=== PATIENT | female | born 1945 | race Caucasian/White ===

== ENCOUNTER → 2017-01-30 | Day surgery (SDC) | payer MEDICARE ==
[~2017-01-30] VITALS: Ht 154.9 cm; Wt 71.5 kg
[~2017-01-30] MED LIST: ACET1CAP18 PO; ALLO100T PO; BUME2TAB PO; CALC600T10 PO; CYCLOPENTOLATE HCL 1% OPHT SOLN 2 ML BTL ONE; FLURBIPROFEN 0.03% OPHT SOLN 2.5 ML BTL ONE; LIDOCAINE HCL 1% 30 ML VIAL ONE; LIDOCAINE HCL 2% JELLY 5 ML SYRINGE ONE; PHENYLEPHRINE HCL 10% OPTH SOLN 5 ML BTL ONE; PRED5TAB PO; PROPARACAINE HCL 0.5% OPHT SOLN 15 ML BTL ONE; SODIUM CHLORID 0.9% 500 ML INJ 500 ML ONE; TOBRAMYCIN/DEXAMETHASONE OPTH OINT 3.5 GM TUBE ONE; TROPICAMIDE 1% OPHT SOLN 15 ML BTL ONE
[2017-01-30 08:05] VITALS: BP 157/71; PULSE 73; RESP 16; TEMP 98.3; O2SAT 98
[2017-01-30 09:40] VITALS: TEMP 98.4
[2017-01-30 10:05] VITALS: BP 160/69; PULSE 75; RESP 14; O2SAT 98
--- NOTE | 2017-02-02 14:02 | MP ---
cc: ERWIN CAICEDO M.D. Corrected Copy: 02/07/17 DATE OF SURGERY: 01/30/2017 [facility] NUMBER: [id number]. PREOPERATIVE DIAGNOSIS: Visually significant cataract left eye. POSTOPERATIVE DIAGNOSIS: Visually significant cataract left eye. OPERATION: Phacoemulsification with posterior chamber lens implantation, left eye. SURGEON: Erwin Caicedo MD ANESTHESIA: Topical with MAC COMPLICATIONS: None DESCRIPTION OF THE PROCEDURE IN DETAIL: After informed consent was obtained, the patient was brought into the operative suite and placed on appropriate monitors by the Anesthesia Service. The patient had been given dilating drops and topical lidocaine gel in the holding area. The patient's operative eye was then prepped and draped in the usual sterile fashion. A wire lid speculum was placed. Further 2% lidocaine was then dropped on the cornea prior to beginning the procedure. A paracentesis incision was made in the peripheral cornea with a 1 mm loco keratome. The anterior chamber was filled with viscoelastic. The anterior chamber was then entered through a stepped, clear corneal incision using a sharp 3 mm loco keratome. A circular tear capsulorrhexis was then made with a bent needle cystitome. Following hydrodissection of the lens nucleus with balance saline, phacoemulsification of the nucleus was performed using a modified chopping technique. The remaining cortex was removed with irrigation/aspiration. The prior two procedures were both performed using the handpieces of the [employer] phaco unit. The capsular bag was then filled with viscoelastic. The intraocular lens was then injected into the capsular bag and positioned. The type of intraocular lens and its power can be found elsewhere in this chart. The remaining viscoelastic was then removed from the anterior chamber with the IA handpiece. The anterior chamber was reformed with balanced saline. The wound was then closed securely with stromal hydration. It was found to be watertight to an intraocular pressure of at least 30 mmHg by palpation. A small amount of balanced salt solution was then removed through the paracentesis site and the intraocular pressure at the end of the case was approximately 20 by palpation. All drapes were then removed. TobraDex ointment was then placed in the eye, which was closed beneath a semi-pressure patch dressing. The patient tolerated this procedure well and left the operating room awake and alert. The patient is to follow-up in my office in the morning. ADDENDUM: After the clear corneal incisions were sealed water-tight, a 4 mm limbal relaxing incision was made with a 600 micron loco blade, centered around the inferior 80 degree meridian. Erwin MD TATI Davila/MICHEL /9:40 AM /2:35 PM
== END | disposition home or self-care (01) ==
LOC: PHSDC 07:15
PROVIDERS: ATTEND Optometrist Occupational Vision
DX: H26.9 Unspecified cataract (principal)
CPT/HCPCS: 00142; 66984; J7040; V2632

== ENCOUNTER → 2017-03-13 | Day surgery (SDC) | payer MEDICARE ==
[~2017-03-13] VITALS: Ht 154.9 cm; Wt 68.0 kg
[~2017-03-13] MED LIST changes: -LIDOCAINE HCL 1% 30 ML VIAL ONE; +LIDOCAINE HCL 1% PF 30 ML VIAL INFIL ONE; -TOBRAMYCIN/DEXAMETHASONE OPTH OINT 3.5 GM TUBE ONE; +TOBRAMYCIN/DEXAMETHASONE OPTH OINT 3.5 GM TUBE RIGHT EYE ONE
[2017-03-13 06:33] VITALS: BP 140/63; PULSE 70; RESP 16; TEMP 98; O2SAT 96
[2017-03-13 08:17] VITALS: TEMP 97.4
[2017-03-13 08:30] VITALS: BP 151/64; PULSE 65; RESP 14; O2SAT 98
--- NOTE | 2017-03-13 10:48 | MP ---
cc: ERWIN CAICEDO M.D. [facility] #: [id number] DATE: March 13, 2017 PREOPERATIVE DIAGNOSIS: Visually significant cataract right eye. POSTOPERATIVE DIAGNOSIS: Visually significant cataract right eye. OPERATION: Phacoemulsification with posterior chamber lens implantation, right eye. SURGEON: Erwin Caicedo MD ANESTHESIA: Topical with MAC. COMPLICATIONS: None. PROCEDURE: After informed consent was obtained, the patient was brought into the operative suite and placed on appropriate monitors by the Anesthesia Service. The patient had been given dilating drops and topical lidocaine gel in the holding area. The patient's operative eye was then prepped and draped in the usual sterile fashion. A wire lid speculum was placed. Further 2% lidocaine was then dropped on the cornea prior to beginning the procedure. A paracentesis incision was made in the peripheral cornea with a 1 mm loco keratome. The anterior chamber was filled with viscoelastic. The anterior chamber was then entered through a stepped, clear corneal incision using a sharp 3 mm loco keratome. A circular tear capsulorrhexis was then made with a bent needle cystitome. Following hydrodissection of the lens nucleus with balance saline, phacoemulsification of the nucleus was performed using a modified chopping technique. The remaining cortex was removed with irrigation/aspiration. The prior two procedures were both performed using the handpieces of the [employer] phaco unit. The capsular bag was then filled with viscoelastic. The intraocular lens was then injected into the capsular bag and positioned. The type of intraocular lens and its power can be found elsewhere in this chart. The remaining viscoelastic was then removed from the anterior chamber with the IA handpiece. The anterior chamber was reformed with balanced saline. The wound was then closed securely with stromal hydration. It was found to be watertight to an intraocular pressure of at least 30 mmHg by palpation. A small amount of balanced salt solution was then removed through the paracentesis site and the intraocular pressure at the end of the case was approximately 20 by palpation. All drapes were then removed. TobraDex ointment was then placed in the eye, which was closed beneath a semi-pressure patch dressing. The patient tolerated this procedure well and left the operating room awake and alert. The patient is to follow-up in my office in the morning. ADDENDUM: After the clear corneal incisions were sealed water-tight, a 4-mm limbal relaxing incision was made with a 600 micron loco blade, centered around the 110-degree meridian. MD TATI Chery/EUGENE /10:30 AM /10:41 AM
== END | disposition home or self-care (01) ==
LOC: PHSDC 06:09
PROVIDERS: ATTEND Optometrist Occupational Vision
DX: H25.811 Combined forms of age-related cataract, right eye (principal); H43.813 Vitreous degeneration, bilateral; H35.363 Drusen (degenerative) of macula, bilateral; Z97.3 Presence of spectacles and contact lenses
CPT/HCPCS: 66984; J7040; V2632

== ENCOUNTER 2018-11-01 03:42 | Inpatient (IN) ==
--- NOTE | 2018-11-01 03:46 | ED ---
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 She apparently had gotten up to go to the bathroom according to the and she had syncopized. She does not remember the event. She denies any chest pains, trouble breathing, or other symptoms. EMS states that initially she did have some bradycardia. Currently, she is in atrial fibrillation. She is arousable now, but does not remember the event. She is currently complaining of left hip pain. Modifying Factors: None Associated Signs & Symptoms: Syncope, left hip pain Risk Factors: Elderly Related Data Home Medications Medication Instructions Recorded Confirmed Acthar H.P. 1 ml INJ Q72H 11/01/18 11/01/18 allopurinol 100 mg PO DAILY 11/01/18 11/01/18 cholecalciferol (vitamin D3) 5,000 unit PO DAILY 11/01/18 11/01/18 [Vitamin D3] famotidine 40 mg PO DAILY 11/01/18 11/01/18 metolazone 2.5 mg PO DAILY 11/01/18 11/01/18 nifedipine 30 mg PO DAILY 11/01/18 11/01/18 nifedipine 60 mg PO DAILY 11/01/18 11/01/18 potassium chloride 20 meq PO BID 11/01/18 11/01/18 prednisone 10 mg PO DAILY 11/01/18 11/01/18 sulfamethoxazole-trimethoprim 1 tab PO 3XW 11/01/18 11/01/18 torsemide 40 mg PO DAILY 11/01/18 11/01/18 Allergies Allergy/AdvReac Type Severity Reaction Status Date / Time No Known Allergies Allergy Verified 11/01/18 03:44 Review of Systems ROS Unobtainable ROS Unobtainable: unobtainable due to mental status PMFSH History History Provided By: Medical Record and Staff Cytotechnologist / EMT Medical History Medical History Medical history unknown (Acute) Surgical history unknown (Acute) Social History Social History Substance History: No History of Abuse Second Hand Smoke Exposure: No Smoking Status: Never smoker How Often Do You Have a Drink Containing Alcohol: Never Recent Travel in [facility] within the Last 8 Weeks: No Recent Out of Country Travel within the Last 8 Weeks: No Exam Narrative Exam Narrative: GENERAL: Well-developed elderly obese female patient currently in moderate distress. Arousable, disoriented. SKIN: Focused skin assessment warm/dry. HEAD: Atraumatic. Normocephalic. EYES: Pupils equal and round. No scleral icterus. No injection or drainage. ENT: No nasal bleeding or discharge. Mucous membranes pink and moist. NECK: Trachea midline. No JVD. CARDIOVASCULAR: Regular rate and rhythm. No murmur appreciated. RESPIRATORY: No accessory muscle use. Clear to auscultation. Breath sounds equal bilaterally. GASTROINTESTINAL: Abdomen soft, non-tender, nondistended. Hepatic and splenic margins not palpable. MUSCULOSKELETAL: No obvious deformities. No clubbing. No cyanosis. Anasarca with significant intense pitting edema both legs. NEUROLOGICAL: Awake and alert. No obvious cranial nerve deficits. Motor grossly within normal limits. Normal speech. PSYCHIATRIC: Appropriate mood and affect; insight and judgment normal. Course Initial Documented Vital Signs Pulse Rate 119 H 11/01/18 03:44 Respiratory Rate 21 11/01/18 03:44 Blood Pressure 163/71 H 11/01/18 03:44 Pulse Oximetry 95 11/01/18 03:44 Last Documented Vital Signs Pulse Rate 119 H 11/01/18 03:44 Respiratory Rate 21 11/01/18 03:44 Blood Pressure 163/71 H 11/01/18 03:44 Pulse Oximetry 95 11/01/18 03:52 Medical Decision Making MDM Narrative Medical decision making narrative: Lab work is showing significant anemia. 2 units of PRBCs were ordered for the patient. Her chest x-ray is clear. She has all over anasarca likely secondary to the low albumin levels which appears to be chronic for this patient with history of minimal-change disease. She has a fairly elevated BUN and creatinine. Her potassium is low and IV replacement was ordered for the patient. A Hemoccult was done on patient's stool and it is negative. At this point, my plan would be to admit her for further treatment. Case is discussed with Dr. Rosenberg for admission to hospitalist service. In addition, patient's x-ray of the hip shows a hip fracture. The case was discussed with Dr. Momin B who states that the patient likely will need surgical treatment after stabilization. Medical Screen Exam Complete: Yes Emergency Medical Condition: Yes Differential Diagnosis Differential Diagnosis: Dysrhythmias versus electrolyte abnormalities versus orthostasis Lab Data Lab results reviewed: Yes I reviewed the patient's lab results. Result diagrams: 11/01/18 03:49 11/01/18 03:49 Lab Results 11/01/18 11/01/18 11/01/18 Range/Units 03:49 03:49 03:49 WBC 1.3 L (4.0-11.0) th/mm3 RBC 2.24 L (4.00-5.30) mil/mm3 Hgb 6.8 L* (11.6-15.3) gm/dL Hct 20.4 L* (35.0-46.0) % MCV 91.0 (80.0-100.0) fL MCH 30.3 (27.0-34.0) pg MCHC 33.3 (32.0-36.0) % RDW 19.7 H (11.6-17.2) % Plt Count 204 (150-450) th/mm3 MPV 8.7 (7.0-11.0) fL Prelim Diff (Auto) Slide review pending Neut % (Auto) 89.1 H (16.0-70.0) % Lymph % (Auto) 8.1 L (9.0-44.0) % [place] % (Auto) 1.7 (0.0-8.0) % Eos % (Auto) 0.5 (0.0-4.0) % Baso % (Auto) 0.6 (0.0-2.0) % Neut # (Auto) 1.1 L (1.8-7.7) th/mm3 Lymph # (Auto) 0.1 L (1.0-4.8) th/mm3 [place] # (Auto) 0.0 (0.0-0.9) th/mm3 Eos # (Auto) 0.0 (0.0-0.4) th/mm3 Baso # (Auto) 0.0 (0.0-0.2) th/mm3 WBC Differential Manual diff final Seg Neuts % (Manual) 9 L (16-70) % Band Neuts % (Manual) 34 H (0-6) % Lymphocytes % (Manual) 13 (9-44) % Monocytes % (Manual) 5 (0-8) % Eosinophils % (Manual) 2 (0-4) % Metamyelocytes % (Man) 30 H (0-1) % Myelocytes % (Man) 7 H (0-0) % Abs Neuts (Manual) 1.0 L (1.8-7.7) th/mm3 Nucleated RBCs/100 WBC 18 H (0-0) /100 WBC Differential Comment . Platelet Estimate Normal (Normal) Platelet Morphology Normal (Normal) Acanthocytes (Spur) Occ H (None) PT 10.5 (9.8-11.6) sec INR 1.0 Ratio APTT 25.8 (23.4-31.7) sec Sodium 142 (136-145) meq/L Potassium 2.3 L* (3.5-5.1) meq/L Chloride 104 (98-107) meq/L Carbon Dioxide 24.2 (21.0-32.0) meq/L Anion Gap 14 (5-15) meq/L BUN 75 H (7-18) mg/dL Creatinine 2.76 H (0.50-1.00) mg/dL Estimated GFR 17 L (>89) mL/min Random Glucose 133 H (74-106) mg/dL Calcium 7.1 L* (8.5-10.1) mg/dL Calcium Adj for Albumin 9.2 (8.5-10.1) mg/dL Total Bilirubin 0.2 (0.2-1.0) mg/dL AST 64 H (15-37) U/L ALT 80 H (10-53) U/L Alkaline Phosphatase 446 H (45-117) U/L Troponin I 0.10 H (0.02-0.05) ng/mL B-Natriuretic Peptide (0-100) pg/mL Total Protein 4.3 L (6.4-8.2) g/dL Albumin 1.4 L (3.4-5.0) g/dL Blood Type Blood Type Recheck MTS Gel Crossmatch 11/01/18 11/01/18 Range/Units 03:49 04:56 WBC (4.0-11.0) th/mm3 RBC (4.00-5.30) mil/mm3 Hgb (11.6-15.3) gm/dL Hct (35.0-46.0) % MCV (80.0-100.0) fL MCH (27.0-34.0) pg MCHC (32.0-36.0) % RDW (11.6-17.2) % Plt Count (150-450) th/mm3 MPV (7.0-11.0) fL Prelim Diff (Auto) Neut % (Auto) (16.0-70.0) % Lymph % (Auto) (9.0-44.0) % [place] % (Auto) (0.0-8.0) % Eos % (Auto) (0.0-4.0) % Baso % (Auto) (0.0-2.0) % Neut # (Auto) (1.8-7.7) th/mm3 Lymph # (Auto) (1.0-4.8) th/mm3 [place] # (Auto) (0.0-0.9) th/mm3 Eos # (Auto) (0.0-0.4) th/mm3 Baso # (Auto) (0.0-0.2) th/mm3 WBC Differential Seg Neuts % (Manual) (16-70) % Band Neuts % (Manual) (0-6) % Lymphocytes % (Manual) (9-44) % Monocytes % (Manual) (0-8) % Eosinophils % (Manual) (0-4) % Metamyelocytes % (Man) (0-1) % Myelocytes % (Man) (0-0) % Abs Neuts (Manual) (1.8-7.7) th/mm3 Nucleated RBCs/100 WBC (0-0) /100 WBC Differential Comment Platelet Estimate (Normal) Platelet Morphology (Normal) Acanthocytes (Spur) (None) PT (9.8-11.6) sec INR Ratio APTT (23.4-31.7) sec Sodium (136-145) meq/L Potassium (3.5-5.1) meq/L Chloride (98-107) meq/L Carbon Dioxide (21.0-32.0) meq/L Anion Gap (5-15) meq/L BUN (7-18) mg/dL Creatinine (0.50-1.00) mg/dL Estimated GFR (>89) mL/min Random Glucose (74-106) mg/dL Calcium (8.5-10.1) mg/dL Calcium Adj for Albumin (8.5-10.1) mg/dL Total Bilirubin (0.2-1.0) mg/dL AST (15-37) U/L ALT (10-53) U/L Alkaline Phosphatase (45-117) U/L Troponin I (0.02-0.05) ng/mL B-Natriuretic Peptide 710 H (0-100) pg/mL Total Protein (6.4-8.2) g/dL Albumin (3.4-5.0) g/dL Blood Type O Positive Blood Type Recheck Required MTS Gel Crossmatch See Detail Imaging Data Attestation: I personally reviewed and interpreted this imaging study as follows : Radiologist's impression: Chest X-Ray 11/01/18 03:44 CONCLUSION: No obvious infiltrate or mass. No visible pneumothorax or displaced rib fracture Hip X-Ray 11/01/18 03:49 CONCLUSION: On the single view the pelvis and concerned about the inferior femoral neck for slightly impacted fracture. There are 2 views are entirely normal ECG Data Attestation: I personally reviewed and interpreted this ECG as follows: Interpretation: EKG shows atrial fibrillation with rapid ventricular response at a rate of 100 bpm. Discharge Plan Discharge Disposition Patient Disposition: ED Admit(ED Internal Use Only) Discharge Condition Condition: Fair Discharge Order Discharge Orders: ED Use Only Admit Order (Routine); Ordered 11/01/18 Ordered By: Colton Jaffe Discharge Details Anticipated Discharge Date: 11/01/18 Diagnosis: Severe anemia, Syncope, Hypokalemia Physicians Team ED Provider: Colton Jaffe Primary Care Provider: Khanh Wallace Attending Provider: Jv Euceda Discharge Interventions Interventions: Vital Signs Last Done: 11/01/18 03:44 Status ED Status: Admitted Patient
[2018-11-01 04:23] LABS: Baso % (Auto) 0.6 % (0.0-2.0); Eos % (Auto) 0.5 % (0.0-4.0); Lymph # (Auto) 0.1 th/mm3 (1.0-4.8); Lymph % (Auto) 8.1 % (9.0-44.0); Mean Corpuscular HGB Conc 33.3 % (32.0-36.0); Mean Corpuscular Hemoglobin 30.3 pg (27.0-34.0); Mean Platelet Volume 8.7 fL (7.0-11.0); Mono % (Auto) 1.7 % (0.0-8.0); Neut # (Auto) 1.1 th/mm3 (1.8-7.7); Neut % (Auto) 89.1 % (16.0-70.0); Platelet Count 204 th/mm3 (150-450); Red Blood Count 2.24 mil/mm3 (4.00-5.30); Red Cell Distribution Width 19.7 % (11.6-17.2); White Blood Count 1.3 th/mm3 (4.0-11.0)
[2018-11-01 04:25] LABS: Hematocrit 20.4 % (35.0-46.0); Hemoglobin 6.8 gm/dL (11.6-15.3)
[2018-11-01 04:33] LABS: Activated Partial Thrombo Time 25.8 sec (23.4-31.7); Prothrombin Time 10.5 sec (9.8-11.6)
[2018-11-01 04:44] LABS: Albumin 1.4 g/dL (3.4-5.0); Calcium 7.1 mg/dL (8.5-10.1); Carbon Dioxide 24.2 meq/L (21.0-32.0); Total Protein 4.3 g/dL (6.4-8.2); Troponin I 0.1 ng/mL (0.02-0.05)
[2018-11-01] MEDS ORDERED: Sodium Chlor 0.9% Inj 250 ML IV.SIG SCH ×2 (05:00→10:00)
[2018-11-01 05:03] LABS: Potassium 2.3 meq/L (3.5-5.1)
[2018-11-01 05:06] LABS: Acanthocytes Occ; Eosinophils 2 % (0-4); Lymphocytes 13 % (9-44); Metamyelocytes 30 % (0-1); Monocytes 5 % (0-8); Myelocytes 7 % (0-0); Platelet Estimate Normal (Normal); Platelet Morphology Normal (Normal); Tallied Nucleated RBC 18 (0-0)
--- NOTE | 2018-11-01 05:06 | XR ---
EXAM DATE: 11/01/2018 4:51 AM EST AGE/SEX: 73 years / Female INDICATIONS: Fall. Weakness. CLINICAL DATA: This is the patient's subsequent encounter. Patient reports that signs and symptoms h ave been present for 1 day and indicates a pain score of 5/10. MEDICAL/SURGICAL HISTORY: None. None. COMPARISON: . FINDINGS: A single AP view of the chest demonstrates the lungs to be symmetrically aerated without evidence of mass, infiltrate or effusion. The cardiomediastinal contours are unremarkable. Osseous structures a re intact. Calcification mid chest I suspect a calcified lymph node. CONCLUSION: No obvious infiltrate or mass. No visible pneumothorax or displaced rib fracture Electronically signed by: Joel Teague MD Board Certified Radiologist 11/01/2018 5:04 AM EST
--- NOTE | 2018-11-01 05:18 | XR ---
EXAM DATE: 11/01/2018 4:51 AM EST AGE/SEX: 73 years / Female INDICATIONS: Fall. Left hip pain. CLINICAL DATA: This is the patient's initial encounter. Patient reports that signs and symptoms have been present for 1 day and indicates a pain score of 10/10. MEDICAL/SURGICAL HISTORY: None. None. COMPARISON: No prior exams available for comparison. FINDINGS: On the single view the pelvis on the slightly concerned about the femoral neck particularly the infer ior cortex. On the other 2 views is unremarkable. If there is persistent pain noncontrast CT scan is recommended. CONCLUSION: On the single view the pelvis and concerned about the inferior femoral neck for slightly impacted fra cture. There are 2 views are entirely normal Electronically signed by: Joel Teague MD Board Certified Radiologist 11/01/2018 5:17 AM EST
[2018-11-01] MEDS ORDERED: Potassium Chloride Inj 10 MEQ in Sod Chloride 0.9% Inj 1,000 ML IV.CONT ONE (05:20)
[2018-11-01] MEDS ORDERED: Potassium Chlor 20 mEq Premix 20 MEQ/100 ML PIGGYBACK IV.SIG ONE ×2 (05:37→05:40)
[2018-11-01] MEDS ORDERED: Morphine Sulfate Inj 2 MG/ML Vial IV.PUSH PRN (05:44)
--- NOTE | 2018-11-01 05:51 | CT ---
EXAM DATE: 11/01/2018 5:46 AM EST AGE/SEX: 73 years / Female INDICATIONS: Syncope CLINICAL DATA: This is the patient's initial encounter. Patient reports that signs and symptoms have been present for 1 day and indicates a pain score of 0/10. MEDICAL/SURGICAL HISTORY: Hypertension. None. RADIATION DOSE: 56.34 CTDI (mGy) COMPARISON: No prior exams available for comparison. TECHNIQUE: CT of the head without contrast. Using automated exposure control and adjustment of the mA and/or kV according to patient size, radiation dose was kept as low as reasonably achievable to ob tain optimal diagnostic quality images. DICOM format image data is available electronically for revi ew and comparison. FINDINGS: Cerebrum: The ventricles are normal for age. No evidence of midline shift, mass lesion, hemorrhage or acute infarction. No extraaxial fluid collections are seen. Posterior Fossa: The cerebellum and brainstem are intact. The 4th ventricle is midline. The cerebe llopontine angle is unremarkable. Extracranial: The visualized portion of the orbits is intact. Skull: The calvaria is intact. No evidence of skull fracture. CONCLUSION: 1. Negative CT Head non contrast. . Electronically signed by: Joel Teague MD Board Certified Radiologist 11/01/2018 5:50 AM EST
[2018-11-01 06:11] LABS: Magnesium 1.8 mg/dL (1.5-2.5)
[2018-11-01 06:20] LABS: Thyroid Stimulating Hormone 1.88 uIU/mL (0.358-3.740)
--- NOTE | 2018-11-01 08:21 | P.CONOP ---
[facility] Orthopedics Consult Note - [facility] Consult date: 11/01/18 Consult reason: fracture Chief complaint: syncope, anasarca, severe anemia, hypokalemia Narrative: 73-year-old female patient with minimal change disease, hypertension, anasarca, presents to the ER today brought in by EMS after she had a syncopal episode. She apparently had gotten up to go to the bathroom according to the and she had syncopized. She does not remember the event. Patient's states she did not actually fall but started to buckle her knees. He states over the last week she has had increasing difficulty ambulating without any reported or witnessed falls. She has previously been on hemodialysis earlier this year and is currently being treated for minimal-change disease in [place]. She denies any chest pains, trouble breathing, or other symptoms. EMS states that initially she did have some bradycardia. Currently, she is in atrial fibrillation. She is arousable now, but does not remember the event. She is currently complaining of left hip pain. Review of Systems Denies fevers, chills, nausea, vomiting. Denies chest pain, cough, shortness of breath. Denies abdominal pain or change in urination. Denies back pain, weakness, numbness or tingling. Denies dizziness, blurry vision or throat pain. Reports left hip pain. Reports generalized edema PMFSH - History History Provided By: Medical Record, Claims Attorney / EMT - Medical History Medical History: Medical History (Last Updated 11/01/18 @ 03:48 by Lillian Jackson RN) Medical history unknown Surgical history unknown - Tobacco History Second Hand Smoke Exposure: No Smoking Status: Never smoker - Alcohol History How Often Do You Have a Drink Containing Alcohol: Never - Substance Use History Substance History: No History of Abuse - Travel History Recent Travel in the [place] Within the Last 8 Weeks: No Recent Travel Out of the Country Within the Last 8 Weeks: No - Immunization History Tetanus Immunization: Unsure Medications and Allergies Active Medications: Active Medications Morphine Sulfate (Morphine Inj) 3 mg IV.PUSH Q3H PRN PRN Reason: pain level 3-10 Last Admin: 11/01/18 06:40 Dose: 3 mg Ondansetron HCl (Zofran Inj) 4 mg IV.PUSH Q6H PRN PRN Reason: nausea, vomiting Allergies Allergy/AdvReac Type Severity Reaction Status Date / Time No Known Allergies Allergy Verified 11/01/18 03:44 Home Medications Medication Instructions Recorded Confirmed Type Acthar H.P. 1 ml INJ Q72H 11/01/18 11/01/18 History allopurinol 100 mg PO DAILY 11/01/18 11/01/18 History cholecalciferol (vitamin D3) 5,000 unit PO DAILY 11/01/18 11/01/18 History [Vitamin D3] famotidine 40 mg PO DAILY 11/01/18 11/01/18 History metolazone 2.5 mg PO DAILY 11/01/18 11/01/18 History nifedipine 30 mg PO DAILY 11/01/18 11/01/18 History nifedipine 60 mg PO DAILY 11/01/18 11/01/18 History potassium chloride 20 meq PO BID 11/01/18 11/01/18 History prednisone 10 mg PO DAILY 11/01/18 11/01/18 History sulfamethoxazole-trimethoprim 1 tab PO 3XW 11/01/18 11/01/18 History torsemide 40 mg PO DAILY 11/01/18 11/01/18 History Exam Vital signs: Vital Signs 11/01/18 03:44 11/01/18 03:52 11/01/18 06:20 Temperature 97.8 F Pulse Rate 119 H 96 H Respiratory Rate 21 18 Blood Pressure 163/71 H 119/56 L Pulse Oximetry 95 95 100 11/01/18 06:42 11/01/18 07:19 11/01/18 07:24 Temperature 98.5 F 98.0 F Pulse Rate 99 H 101 H 100 H Respiratory Rate 15 20 Blood Pressure 107/53 L 126/60 Pulse Oximetry 100 98 97 Intake & Output 10/31/18 11/01/18 11/01/18 18:59 06:59 18:59 Intake Total 0 / 0 590 / 590 Balance 0 / 0 590 / 590 Weight 95.254 kg Intake: IV 190 / 190 KCl 20 mEq Premix Inj 20 meq In 100 / 100 100 ml @ 50 mls/hr IV.SIG ONCE ONE Rx#:[id number] NS Inj 250 ML @ 15 mls/hr IV. 90 / 90 SIG ONCE JACOB Rx#:[id number] Intake (Blood Product) Amt 0 / 0 400 / 400 Rbc As-3 Leukoreduced Unit 0 / 0 400 / 400 [id number] Rbc As-3 Leukoreduced Unit 0 / 0 [id number] Narrative: Awake, alert, mild distress. Significant anasarca Normocephalic Pupils equal No JVD Moist mucous membranes Nonlabored respirations Soft nontender abdomen Irregular rate Right upper extremity: No tenderness to palpation or visible deformities. Full active range of motion and strength throughout. Sensation intact. Brisk cap refill. Left upper extremity:No tenderness to palpation or visible deformities. Full active range of motion and strength throughout. Sensation intact. Brisk cap refill. Right lower extremity: No tenderness to palpation or visible deformities. Full active range of motion and strength throughout. Sensation intact. Brisk cap refill. Left lower extremity: Positive logroll. Unable to assess hip and knee range of motion due to pain. Patient appears grossly intact distally although has significant edema especially left leg greater than right. There is mild erythema over the medial aspect of her right knee. Brisk cap refill. No rash Normal affect Results - Labs Result Diagrams: 11/01/18 03:49 11/01/18 03:49 Labs: Laboratory Results - last 24 hr 11/01/18 11/01/18 11/01/18 03:49 03:49 03:49 WBC 1.3 L RBC 2.24 L Hgb 6.8 L* Hct 20.4 L* MCV 91.0 MCH 30.3 MCHC 33.3 RDW 19.7 H Plt Count 204 MPV 8.7 Prelim Diff (Auto) Slide review pending Neut % (Auto) 89.1 H Lymph % (Auto) 8.1 L Warren % (Auto) 1.7 Eos % (Auto) 0.5 Baso % (Auto) 0.6 Neut # (Auto) 1.1 L Lymph # (Auto) 0.1 L Warren # (Auto) 0.0 Eos # (Auto) 0.0 Baso # (Auto) 0.0 WBC Differential Manual diff final Seg Neuts % (Manual) 9 L Band Neuts % (Manual) 34 H Lymphocytes % (Manual) 13 Monocytes % (Manual) 5 Eosinophils % (Manual) 2 Metamyelocytes % (Man) 30 H Myelocytes % (Man) 7 H Abs Neuts (Manual) 1.0 L Nucleated RBCs/100 WBC 18 H Differential Comment . Platelet Estimate Normal Platelet Morphology Normal Acanthocytes (Spur) Occ H PT 10.5 INR 1.0 APTT 25.8 Sodium 142 Potassium 2.3 L* Chloride 104 Carbon Dioxide 24.2 Anion Gap 14 BUN 75 H Creatinine 2.76 H Estimated GFR 17 L Random Glucose 133 H Calcium 7.1 L* Calcium Adj for Albumin 9.2 Magnesium Total Bilirubin 0.2 AST 64 H ALT 80 H Alkaline Phosphatase 446 H Troponin I 0.10 H B-Natriuretic Peptide Total Protein 4.3 L Albumin 1.4 L TSH Blood Type Blood Type Recheck Antibody Screen MTS Gel Crossmatch 11/01/18 11/01/18 11/01/18 03:49 03:49 04:56 WBC RBC Hgb Hct MCV MCH MCHC RDW Plt Count MPV Prelim Diff (Auto) Neut % (Auto) Lymph % (Auto) Warren % (Auto) Eos % (Auto) Baso % (Auto) Neut # (Auto) Lymph # (Auto) Warren # (Auto) Eos # (Auto) Baso # (Auto) WBC Differential Seg Neuts % (Manual) Band Neuts % (Manual) Lymphocytes % (Manual) Monocytes % (Manual) Eosinophils % (Manual) Metamyelocytes % (Man) Myelocytes % (Man) Abs Neuts (Manual) Nucleated RBCs/100 WBC Differential Comment Platelet Estimate Platelet Morphology Acanthocytes (Spur) PT INR APTT Sodium Cancelled Potassium Cancelled Chloride Cancelled Carbon Dioxide Cancelled Anion Gap Cancelled BUN Cancelled Creatinine Cancelled Estimated GFR Cancelled Random Glucose Cancelled Calcium Cancelled Calcium Adj for Albumin Magnesium 1.8 Total Bilirubin AST ALT Alkaline Phosphatase Troponin I B-Natriuretic Peptide 710 H Total Protein Albumin TSH 1.880 Blood Type O Positive Blood Type Recheck Required Antibody Screen Negative MTS Gel Crossmatch See Detail - Diagnostic results Imaging: Impressions Chest X-Ray 11/01/18 03:44 CONCLUSION: No obvious infiltrate or mass. No visible pneumothorax or displaced rib fracture Head CT 11/01/18 03:44 CONCLUSION: 1. Negative CT Head non contrast. . Hip X-Ray 11/01/18 03:49 CONCLUSION: On the single view the pelvis and concerned about the inferior femoral neck for slightly impacted fracture. There are 2 views are entirely normal Assessment and Plan - Assessment and Plan 73-year-old female with multiple medical problems with syncopal episode and reported left hip pain Radiographs are suspicious for a subcapital femoral neck fracture which is minimally to nondisplaced. However, given her anasarca and her size, this is very difficult to fully determine on radiographs alone. In addition, patient denies any significant falls and has had slow progressive difficulty with left side ambulation for over a week. At this time, I would recommend a CT scan to better evaluate fracture pattern and also could there be a pathological lesion. I discussed with the patient and her that likely she would benefit from percutaneous fixation should she have a subcapital femoral neck fracture without any pathologic lesion. However, currently she is receiving blood transfusion for her significant anemia. In addition, she is in atrial fibrillation which she states she has never been diagnosed with. At this time, she will need medical clearance and possible cardiac clearance prior to surgical intervention. We will plan for CT scan of her left hip today. We will make her n.p.o. at midnight with possible surgery tomorrow.
[2018-11-01] MEDS ORDERED: HYDROmorphone PF Inj 0.5 MG/0.5 ML Syringe IV.PUSH PRN (09:13)
--- NOTE | 2018-11-01 09:49 | P.HPIM ---
Addendum entered and electronically signed by JESICA Reece 14:27: Hypokalemia patient received potassium 20 meq IV x 2 in ER also has potassium 20 meq in IV fluids Start potassium 20 meq PO daily recheck potassium now ordered Original Note: History of Present Illness Primary Care Physician: Khanh Wallace MD Chief Complaint: Syncope with hip pain History of Present Illness: This is a 73-year-old female patient with a past medical history which includes minimal change disease dx in 2014 with nephrotic syndrome, temporary HD spring, hypertension, anasarca, COPD and OA. Patient presents to the ER brought in by EMS after she had a syncopal episode. Patient has recently received [place] and is drowsy. Information gathered from prior charting and at bedside. She apparently had gotten up to go to the bathroom and she had syncopal episode. She does not remember the event. She denies any chest pains, trouble breathing, or other symptoms. EMS states that initially she did have some bradycardia. She is currently complaining of left hip pain. Hip X-Ray 11/01/18 On the single view the pelvis and concerned about the inferior femoral neck for slightly impacted fracture. HGB 6.8 there is no report of blood per rectum or black stools. Patient's does report patient appears more fatigued lately and patient has had a hard time walking for the past month. Patient denies chest pain, SOB, fevers, chills, N/V/D/C. Chest X-Ray 11/01/18 No obvious infiltrate or mass. No visible pneumothorax or displaced rib fracture Head CT 11/01/[address] Head non contrast. Hip X-Ray 11/01/18 On the single view the pelvis and concerned about the inferior femoral neck for slightly impacted fracture. There are 2 views are entirely normal Past Medical History COPD Tobacco use Osteoarthritis Genital herpes PFT on 06/05/15 with FEV1 82% Minimal change disease with nephrotic syndrome anasarca CKD stage 3 HTN Past Surgical History vaginal Hysterectomy with oophorectomy Cholecystectomy Abdominoplasty Breast reduction and implants cataract surgery Kidney Bx Family History Mother with a hx of HTN, diabetes mellitus, and breast cancer Father with a hx of emphysema Social History Hx of Tobacco use, 30+ years smokes 5-6 cigarettes per day. Rare social alcohol use. Denies illicit drug use Inpatient Certification Inpatient Certification: I certify that the inpatient services were ordered in accordance with Medicare regulations governing the order. This includes certification that hospital inpatient services are reasonable and necessary and in the case of services not specified as inpatient-only under 42 CFR 419.22(n), that they are appropriately provided as inpatient services in accordance to with the 2-midnight benchmark under 43 CFR 412.3(e) Estimated Total Length of Stay (Days): 3 Plans for Post Hospital Care: Not yet determined Medications and Allergies Allergies Allergy/AdvReac Type Severity Reaction Status Date / Time No Known Allergies Allergy Verified 11/01/18 03:44 Home Medications Medication Instructions Recorded Confirmed Type allopurinol 100 mg PO DAILY 11/01/18 11/01/18 History cholecalciferol (vitamin D3) 5,000 unit PO DAILY 11/01/18 11/01/18 History [Vitamin D3] corticotropin [Acthar H.P.] 80 unit IM Q72H 11/01/18 11/01/18 History famotidine 40 mg PO DAILY 11/01/18 11/01/18 History metolazone 2.5 mg PO DAILY 11/01/18 11/01/18 History nifedipine 30 mg PO DAILY 11/01/18 11/01/18 History nifedipine 60 mg PO QPM 11/01/18 11/01/18 History potassium chloride 20 meq PO BID 11/01/18 11/01/18 History prednisone 10 mg PO DAILY 11/01/18 11/01/18 History sulfamethoxazole-trimethoprim 1 tab PO 3XW 11/01/18 11/01/18 History torsemide 20 mg PO BID 11/01/18 11/01/18 History Active Medications: Active Medications Hydrocodone Bitart/Acetaminophen ([place] 7.5/325) 1 tab PO Q4H PRN PRN Reason: PAIN SCALE 1 TO 10 Last Admin: 11/01/18 09:26 Dose: 1 tab Hydromorphone HCl (Dilaudid Pf Inj) 0.5 mg IV.PUSH Q4H PRN PRN Reason: BREAKTHROUGH PAIN Ondansetron HCl (Zofran Inj) 4 mg IV.PUSH Q6H PRN PRN Reason: nausea, vomiting Physical Exam Vital signs: Last Vital Signs Temp 98.2 F 11/01/18 07:34 Pulse 97 H 11/01/18 07:56 Resp 20 11/01/18 07:56 BP 111/52 L 11/01/18 07:56 Pulse Ox 98 11/01/18 07:56 Narrative: GENERAL: This is a well-nourished, well-developed patient, currently appears drowsy post norco but in no apparent distress. CARDIOVASCULAR: irregular irregular RESPIRATORY: Clear to auscultation. Breath sounds equal bilaterally. GASTROINTESTINAL: Abdomen soft, non-tender, nondistended. Normal active bowel sounds MUSCULOSKELETAL: Extremities without clubbing, cyanosis, or edema. NEURO: drowsy able to awaken with voice and answers appropriately. Moves all ext x4. LLE limited by pain Results Labs CBC & Chem 7: 11/02/18 08:32 11/02/18 08:32 Caprini VTE Risk Assessment Caprini VTE Risk Assessment: Moderate/High Risk (score >= 2) Caprini Risk Assessment Model: Point Value = 1 Point Value = 2 Point Value = 3 Point Value = 5 Age 41-60 Minor surgery BMI > 25 kg/m2 Swollen legs Varicose veins or History of unexplained or recurrent spontaneous Oral contraceptives or hormone replacement Sepsis (< 1 month) Serious lung disease, including pneumonia (< 1 month) Abnormal pulmonary function Acute myocardial infarction Congestive heart failure (< 1 month) History of inflammatory bowel disease Medical patient at bed rest Age 61-74 Arthroscopic surgery Major open surgery (> 45 min) Laparoscopic surgery (> 45 min) Malignancy Confined to bed (> 72 hours) Immobilizing plaster cast Central venous access Age >= 75 History of VTE Family history of VTE Factor V Leiden Prothrombin [id number] Lupus anticoagulant Anticardiolipin antibodies Elevated serum homocysteine Heparin-induced thrombocytopenia Other congenital or acquired thrombophilia Stroke (< 1 month) Elective arthroplasty Hip, pelvis, or leg fracture Acute spinal cord injury (< 1 month) Prophylaxis Regimen: Total Risk Factor Score Risk Level Prophylaxis Regimen 0-1 Low Early ambulation 2 Moderate Order ONE of the following: *Sequential Compression Device (SCD) *Heparin 5000 units SQ BID 3-4 Higher Order ONE of the following medications: *Heparin 5000 units SQ TID *Enoxaparin/Lovenox 40 mg SQ daily (WT < 150 kg, CrCl > 30 mL/min) *Enoxaparin/Lovenox 30 mg SQ daily (WT < 150 kg, CrCl > 10-29 mL/min) *Enoxaparin/Lovenox 30 mg SQ BID (WT < 150 kg, CrCl > 30 mL/min) AND/OR *Sequential Compression Device (SCD) 5 or more Highest Order ONE of the following medications: *Heparin 5000 units SQ TID (Preferred with Epidurals) *Enoxaparin/Lovenox 40 mg SQ daily (WT < 150 kg, CrCl > 30 mL/min) *Enoxaparin/Lovenox 30 mg SQ daily (WT < 150 kg, CrCl > 10-29 mL/min) *Enoxaparin/Lovenox 30 mg SQ BID (WT < 150 kg, CrCl > 30 mL/min) AND *Sequential Compression Device (SCD) Assessment and Plan Plan This is a 73-year-old female patient with a past medical history which includes minimal change disease dx in 2014 with nephrotic syndrome, temporary HD spring, hypertension, anasarca, COPD and OA. Patient presents to the ER brought in by EMS after she had a syncopal episode. Patient has recently received [place] and is drowsy. Information gathered from prior charting and at bedside. She apparently had gotten up to go to the bathroom and she had syncopal episode. She does not remember the event. She denies any chest pains, trouble breathing, or other symptoms. EMS states that initially she did have some bradycardia. She is currently complaining of left hip pain. Hip X- Ray 11/01/18 On the single view the pelvis and concerned about the inferior femoral neck for slightly impacted fracture. HGB 6.8 there is no report of blood per rectum or black stools. Patient's does report patient appears more fatigued lately and patient has had a hard time walking for the past month. Patient denies chest pain, SOB, fevers, chills, N/V/D/C. Chest X-Ray 11/01/18 No obvious infiltrate or mass. No visible pneumothorax or displaced rib fracture Head CT 11/01/[address] Head non contrast. Hip X-Ray 11/01/18 On the single view the pelvis and concerned about the inferior femoral neck for slightly impacted fracture. There are 2 views are entirely normal Syncope likely secondary to anemia CT head Negative CT Head non contrast. Hgb on admission 6.8 patient is receiving second unit of PRBC recheck CBC 1 hour after PRBCs completed check B12 and iron profile on blood obtained 10/31 Protonix 40 mg PO daily occult stool ordered Atrial Fibrillation on admission No history of A Fib per patient and continuous telemetry HR 90s to 119 bpm echocardiogram Orthopedic surgery would like cardiac clearance prior to surgery Cardiology consulted Left femoral neck fracture Consult orthopedic surgery CT scan left hip possible percutaneous fixation tomorrow NPO after midnight Minimal change disease with nephrotic syndrome CKD stage 3 Consult to nephrology Patient takes metolazone 2.5 mg PO daily, Torsemide 20 mg PO BID, prednisone 10 mg daily Acthar 1 ML injection Q72H and allopurinol [address] Euceda discussed with Dr. Thomas-> will hold metolazone 2.5 mg PO daily, Torsemide 20 mg PO BID Continue home prednisone 10 mg daily Acthar 1 ML injection Q72H and allopurinol 100 mg PO daily Consult nephrology HTN At home takes Nifedipine 30 mg AM and 60 mg PM- will hold at this time patient BP currently stable monitor BP trend DVT prophylaxis with SCDs Attending Attestation The exam, history, and the medical decision-making described in the above note were completed with the assistance of the mid-level provider. I reviewed and agree with the findings presented. I attest that I had a [id number] encounter with the patient on the same day, and personally performed and documented my assessment and findings in the medical record. Patient examined. Assessment and plan formulated with Cinda Linares PA-C. I agree with the above.
[2018-11-01] MEDS ORDERED: Pantoprazole Inj 40 MG Vial IV.PUSH SCH (12:00)
[2018-11-01] MEDS ORDERED: [UNRECOGNIZED DRUG - OTHER] IM SCH (14:30)
[2018-11-01 14:57] LABS: Baso % (Auto) 0.6 % (0.0-2.0); Eos % (Auto) 2.5 % (0.0-4.0); Hematocrit 32.4 % (35.0-46.0); Hemoglobin 11.2 gm/dL (11.6-15.3); Lymph # (Auto) 0.1 th/mm3 (1.0-4.8); Lymph % (Auto) 6.9 % (9.0-44.0); Mean Corpuscular HGB Conc 34.5 % (32.0-36.0); Mean Corpuscular Hemoglobin 31.8 pg (27.0-34.0); Mean Corpuscular Volume 92.2 fL (80.0-100.0); Neut # (Auto) 1.2 th/mm3 (1.8-7.7); Platelet Count 160 th/mm3 (150-450); Red Blood Count 3.52 mil/mm3 (4.00-5.30); Red Cell Distribution Width 17.8 % (11.6-17.2); White Blood Count 1.4 th/mm3 (4.0-11.0)
[2018-11-01 15:23] LABS: Calcium 7.2 mg/dL (8.5-10.1); Carbon Dioxide 23.8 meq/L (21.0-32.0)
[2018-11-01 15:31] LABS: Eosinophils 1 % (0-4); Lymphocytes 3 % (9-44); Metamyelocytes 20 % (0-1); Monocytes 1 % (0-8); Myelocytes 3 % (0-0); Path Slide Review N; Platelet Morphology Normal (Normal); Promyelocyte 2 % (0-0); Tallied Nucleated RBC 12 (0-0); Toxic Vacuolation Present
[2018-11-01 15:53] LABS: Albumin 1.3 g/dL (3.4-5.0); Calcium-Albumin Corrected 9.4 mg/dL (8.5-10.1)
[2018-11-01 15:54] LABS: Potassium 3.1 meq/L (3.5-5.1)
--- NOTE | 2018-11-01 16:14 | CT ---
EXAM DATE: 11/01/2018 4:06 PM EST AGE/SEX: 73 years / Female INDICATIONS: Trauma, fall. Left hip pain. CLINICAL DATA: This is the patient's initial encounter. Patient reports that signs and symptoms have been present for 1 day and indicates a pain score of Nonresponsive. MEDICAL/SURGICAL HISTORY: Non-responsive. Non-responsive. RADIATION DOSE: 20.42 CTDI (mGy) [place] [facility] [place] 11/01/2018. . TECHNIQUE: Multiple contiguous axial images were acquired using a multirow detector CT scanner witho ut contrast. Multiplanar reconstruction was performed in the sagittal and coronal planes. Using aut omated exposure control and adjustment of the mA and/or kV according to patient size, radiation dose was kept as low as reasonably achievable to obtain optimal diagnostic quality images. DICOM format i mage data is available electronically for review and comparison. FINDINGS: There is a very subtle lucency involving the greater trochanter which likely represents nondisplaced fracture. There is no dislocation of the left hip. Diffuse anasarca is noted involving the soft tissu es of the pelvis. Uncomplicated colonic diverticulosis is noted. Degenerative changes are noted invol ving the lower lumbar spine. CONCLUSION: 1. Very subtle lucency involving the left greater trochanter which likely represents nondisplaced fr acture. 2. Diffuse anasarca. 3. Uncomplicated colonic diverticulosis. 4. Degenerative changes are noted involving the lower lumbar spine. Electronically signed by: Mayank Zurita MD Board Certified Radiologist 11/01/2018 4:13 PM EST
--- NOTE | 2018-11-01 17:58 | MB ---
cc: Reji Thomas MD DATE: 11/01/2018 REASON FOR CONSULTATION: Minimal change disease management. HISTORY OF PRESENT ILLNESS: This is a 73-year-old female with a history of minimal change disease. This was originally diagnosed in 2014 with a renal biopsy. The patient follows up with Dr. Malik Oneal at [facility] for management of this. She has an extensive history of treatment and is currently on Acthar for management of her minimal change disease. Her recent creatinine level was 2.19 a week ago and in August was 2.42. Apparently, she has had 800 mg/dL of proteinuria per previous labs in the last month. The patient was admitted earlier today with complaints of apparent syncope and hip fracture. The patient apparently had been getting up and was weak and fell and suffered a hip fracture. Here, she was admitted and seen with Orthopedics who is planning for possible surgery tomorrow. The patient received some pain medications earlier and is lethargic and drowsy. History was obtained from the patient's . At this point, the patient is lethargic and planning for further evaluation of her hip. In addition, she had hypokalemia with a potassium of 2.3 at time of her admission. This has been replaced. She is following up with the primary team. She has also been restarted with her home diuretics which are metolazone 2.5 mg daily and torsemide 20 mg p.o. b.i.d. Nephrology was consulted for further management of minimal change disease. REVIEW OF SYSTEMS: The patient is lethargic, unable to give full review of systems: Denies any chest pains or shortness of breath at this point. PAST MEDICAL HISTORY: COPD, tobacco use, osteoarthritis, genital herpes, minimal change disease with nephrotic syndrome, followed up with [facility], erika, CKD stage III, hypertension. Apparently, baseline creatinine has ranged between 2.2 and 2.4 in the last several months. SURGICAL HISTORY: Kidney biopsy, vaginal hysterectomy, oophorectomy, cholecystectomy, abdominoplasty, breast reduction, and breast implants, cataract surgery. FAMILY HISTORY: Mother with hypertension, diabetes, and breast cancer. Father with emphysema. SOCIAL HISTORY: History of tobacco use for over 30 years. Smokes 5-6 cigarettes per day. Social alcohol use. No drug use. ALLERGIES: NO KNOWN DRUG ALLERGIES. MEDICATIONS AT HOME: 1. Allopurinol 100 mg daily. 2. Vitamin D3 at 5000 units p.o. daily. 3. Acthar 80 units IM hours. 4. Famotidine. 5. Metolazone 2.5 mg p.o. daily. 6. Nifedipine 30 mg p.o. a.m. and 60 mg p.o. q.p.m. 7. Potassium chloride 20 mEq p.o. b.i.d. 8. Prednisone 10 mg p.o. daily. 9. Bactrim 1 tablet p.o. 3 times per week. 10. Torsemide 20 mg p.o. b.i.d. PHYSICAL EXAMINATION: VITAL SIGNS: At time of evaluation, temperature 97.7, pulse 96, respiratory rate 18, blood pressure 112/53, 100% oxygen saturation. GENERAL: Lethargic. No apparent distress. NECK: Soft, supple. CARDIAC: Regular rate and rhythm. PULMONARY: Clear to auscultation. Decreased breath sounds at bases. ABDOMEN: Soft, nontender, nondistended, obese. EXTREMITIES: 2+ edema. LABORATORY DATA: White count 1.4, hemoglobin 11.2, hematocrit 32.4 with platelet count of 160. Sodium 141, potassium 3.1, chloride 106, bicarbonate 23.8, BUN 75, creatinine 2.7, glucose 99, calcium corrected 9.4, albumin 1.3. ASSESSMENT AND PLAN: 1. Chronic kidney disease with minimal change disease. The patient's is Wan Arango. His cell phone number is [phone]. The is a detailed historian and is well aware of the patient's history. Apparently, she was first diagnosed with minimal change back in 2014. Since then, she has been managed with [facility]. In 2015, she had a remission of her minimal change disease after given a 2-week course of Cytoxan. She then went into relapse in 06/2017. At that time, she failed rituximab and cyclosporine protocols. The patient ended up on dialysis from 02/2018 to 04/2018. At that time, she has started dialysis due to apparent diuretic resistance and had poor response to Bumex and albumin. In April, she came off dialysis, and she was started on a course of Acthar. She started a 6-month course of Acthar with injections q. 72 hours. The patient has been receiving this and has had a month course planned to be ending later on this month. She has had variable response. Apparently, she had her last 24-hour urine collection with 820 mg/dL of protein. Her last creatinine was 2.19 one week ago prior to this admission. She follows up closely with Dr. Malik Oneal at [facility], and apparently there was discussion for possible plasmapheresis should she have further failure response with this regimen of Acthar. At this point, it appears that her renal function is otherwise fairly stable. She has a creatinine of 2.7 compared to a level of 2.19 last week. However, she had a previous creatinine 2.4 several months ago. She may have some mild acute on chronic kidney failure at this point. She does have ongoing peripheral edema as well. At this stage, we will continue with Acthar, and the patient's may bring these medications to be given subcutaneously q. 72 hours. She is apparently due for a dose today, and the to bring in these medications. Can continue Acthar while here. In addition, she appears to be on Bactrim at a prophylactic dose 3 times a week. This can be continued as well. Should there be any significant worsening in her renal function, Bactrim may be held. However, it can continue at this point. In addition to this, the patient has been on prednisone 10 mg daily, and this can be continued at this point. For her volume status management, the patient has had apparent resistance to diuretics in the past. However, she has had good response with her current regimen, and I would agree with continuing metolazone 2.5 mg daily and torsemide 20 mg p.o. b.i.d. We will check a urine protein to creatinine ratio and see if this corresponds to previous findings of a 20 mg/dL of proteinuria. Per the at this point, it appears that her renal function is otherwise relatively stable in the course of her ongoing minimal change disease. We will further assess urine studies and evaluate. 3. Syncope with hip fracture. Unclear etiology for syncope. This is being worked up with the primary team. 4. Hyokalemia: She has had borderline low potassiums. The reports that she has had a potassium 3 levels recently. Her potassium on admission was 2.3 today. Continue to supplement this potassium replacement here. The patient had been on p.o. potassium supplements at home. This is likely a result of ongoing diuretics, possibly with some decreased p.o. intake as well. Continue with potassium monitoring and follow up magnesium levels as well. 4. Hip fracture. The patient is to be seen with orthopedic surgery. Plan for surgery tomorrow. Continue to follow. 5. Anemia. The patient had a hemoglobin of 6.8 at time of admission. She was transfused. Her hemoglobin actually jumped up to a level of 11.2 now. We will continue to monitor at this point. Iron panel had been ordered earlier, prior to transfusion apparently. Continue to follow levels. 6. Atrial fibrillation. The patient had initial heart rate of 90s-110s at time of admission. At this point, her heart rate is in the 90s. Cardiology has been consulted. Continue to monitor. 7. Hypertension. Blood pressure is stable at this point and continue to monitor. 8. Leukocytosis. The patient has a white count of only 1.4. I suspect this may be secondary to previous immunosuppressive regimens. When comes, can evaluate previous labs. Continue to monitor at this point. 9. Recent urinary tract infection. Per the patient's , she had a recent urinary tract infection and had received ciprofloxacin. Continue to monitor. No signs of any infection at this point. MD VALERIY Ellsworth/julia , 04:11 PM , 04:27 PM BULL
[2018-11-01 18:43] LABS: % Iron Saturation 8.7 % (20-50)
--- NOTE | 2018-11-01 19:21 | US ---
EXAM DATE: 11/01/2018 7:15 PM EST AGE/SEX: 73 years / Female INDICATIONS: Increased BUN/Creatnine. CLINICAL DATA: This is the patient's initial encounter. Patient reports that signs and symptoms have been present for 1 day and indicates a pain score of 10/10. MEDICAL/SURGICAL HISTORY: . Syncope. Hysterectomy. Cholecystectomy. Abdominoplasty. Breast re duction. Cataract surgery. Kidney biopsy. Oophorectomy. COMPARISON: No prior exams available for comparison. MEASUREMENTS: Right Kidney:__10.6 x 5.2 x 5.4 cm Left Kidney:__10.2 x x 5.3 cm FINDINGS: Very limited examination due to patient's inability to tolerate positioning. Right Kidney: Increased echogenicity. No mass or hydronephrosis. Left Kidney: Very limited evaluation. Increased echogenicity. No mass or hydronephrosis. Bladder: Within normal limits given the degree of distension. Other: None. CONCLUSION: 1. Significantly limited exam due to patient's inability to tolerate positioning. 2. No sonographic evidence for gross obstructive uropathy. 3. Echogenic kidneys consistent with medical renal disease. Electronically signed by: Amari Montoya MD Board Certified Radiologist 11/01/2018 7:20 PM SHANI T
--- NOTE | 2018-11-01 19:31 | P.CONCA ---
History of Present Illness Service: cardiology Consult date: 11/01/18 Requesting Physician: Jv Euceda Reason for Consult: new onset afib, cardiac clearance for hip surgery Primary Care Provider: Khanh Wallace MD Chief Complaint: Syncope with hip pain History of Present Illness: 73 years old lady, presented emergency room after a syncope episode, also found to have a questionable left hip fracture. Patient also found to have atrial fibrillation RVR, for that reason Cardiology consult. Patient has recently received Eliot and is drowsy. Information gathered from prior charting and at bedside. She apparently had gotten up to go to the bathroom then she fell. She does not remember the event. Patient's states she did not actually fall but started to buckle her knees. He states over the last week she has had increasing difficulty ambulating without any reported or witnessed falls. She has previously been on hemodialysis earlier this year and is currently being treated for minimal-change disease in [place]. She denies any chest pains, trouble breathing, or other symptoms. EMS states that initially she did have some bradycardia. Review of Systems unobtainable due to mental status PMFSH - History History Provided By: Medical Record, Supervisor [employer] / EMT - Medical History Medical History: Medical History (Last Updated 11/01/18 @ 03:48 by Lillian Jackson RN) Medical history unknown Surgical history unknown - Tobacco History Second Hand Smoke Exposure: No Smoking Status: Never smoker - Alcohol History How Often Do You Have a Drink Containing Alcohol: Never - Substance Use History Substance History: No History of Abuse - Travel History Recent Travel in the [place] Within the Last 8 Weeks: No Recent Travel Out of the Country Within the Last 8 Weeks: No - Immunization History Tetanus Immunization: Unsure Medications and Allergies Active Medications: Active Medications Hydrocodone Bitart/Acetaminophen (Eliot 7.5/325) 1 tab PO Q4H PRN PRN Reason: PAIN SCALE 1 TO 10 Last Admin: 11/01/18 17:41 Dose: 1 tab Allopurinol (Zyloprim) 100 mg PO DAILY JACOB Hydromorphone HCl (Dilaudid Pf Inj) 0.5 mg IV.PUSH Q4H PRN PRN Reason: BREAKTHROUGH PAIN Last Admin: 11/01/18 12:50 Dose: 0.5 mg Sodium Chloride (Ns Inj) 250 mls @ 15 mls/hr IV.SIG ONCE JACOB Stop: 12/24/18 02:39 Last Admin: 11/01/18 17:10 Dose: Not Given Metolazone (Zaroxolyn) 2.5 mg PO DAILY [facility] Non-Formulary Medication (Corticotropin [Acthar H.P.]) 80 unit IM Q72H [facility] Ondansetron HCl (Zofran Inj) 4 mg IV.PUSH Q6H PRN PRN Reason: nausea, vomiting Pantoprazole Sodium (Protonix Inj) 40 mg IV.PUSH Q24H J[facility] Last Admin: 11/01/18 12:14 Dose: 40 mg Potassium Chloride (K-Dur) 20 meq PO DAILY [facility] Prednisone (Deltasone) 10 mg PO DAILY JAC[facility] Torsemide (Demadex) 20 mg PO BID [facility] Allergies Allergy/AdvReac Type Severity Reaction Status Date / Time No Known Allergies Allergy Verified 11/01/18 03:44 Home Medications Medication Instructions Recorded Confirmed Type allopurinol 100 mg PO DAILY 11/01/18 11/01/18 History cholecalciferol (vitamin D3) 5,000 unit PO DAILY 11/01/18 11/01/18 History [Vitamin D3] corticotropin [Acthar H.P.] 80 unit IM Q72H 11/01/18 11/01/18 History famotidine 40 mg PO DAILY 11/01/18 11/01/18 History metolazone 2.5 mg PO DAILY 11/01/18 11/01/18 History nifedipine 30 mg PO DAILY 11/01/18 11/01/18 History nifedipine 60 mg PO QPM 11/01/18 11/01/18 History potassium chloride 20 meq PO BID 11/01/18 11/01/18 History prednisone 10 mg PO DAILY 11/01/18 11/01/18 History sulfamethoxazole-trimethoprim 1 tab PO 3XW 11/01/18 11/01/18 History torsemide 20 mg PO BID 11/01/18 11/01/18 History Exam Vital signs: Vital Signs 11/01/18 03:44 11/01/18 03:52 11/01/18 06:20 Temperature 97.8 F Pulse Rate 119 H 96 H Respiratory Rate 21 18 Blood Pressure 163/71 H 119/56 L Pulse Oximetry 95 95 100 11/01/18 06:42 11/01/18 07:19 11/01/18 07:24 Temperature 98.5 F 98.0 F Pulse Rate 99 H 101 H 100 H Respiratory Rate 15 20 Blood Pressure 107/53 L 126/60 Pulse Oximetry 100 98 97 11/01/18 07:34 11/01/18 07:56 11/01/18 08:00 Temperature 98.2 F Pulse Rate 101 H 97 H Respiratory Rate 19 20 Blood Pressure 110/50 L 111/52 L Pulse Oximetry 98 98 100 11/01/18 09:00 11/01/18 10:00 11/01/18 11:00 Temperature 97.6 F Pulse Rate 100 H 98 H 104 H Respiratory Rate 18 Blood Pressure 114/60 Pulse Oximetry 100 11/01/18 12:00 11/01/18 13:00 11/01/18 14:00 Temperature 97.7 F Pulse Rate 96 H 100 H 108 H Respiratory Rate 18 Blood Pressure 112/53 L Pulse Oximetry 100 11/01/18 15:00 11/01/18 16:00 Temperature 97.9 F Pulse Rate 106 H 116 H Respiratory Rate 18 Blood Pressure 100/65 Pulse Oximetry 95 Intake & Output 11/01/18 11/01/18 11/02/18 06:59 18:59 06:59 Intake Total 0 / 0 690 / 690 Balance 0 / 0 690 / 690 Weight 95.254 kg Intake: IV 290 / 290 KCl 20 mEq Premix Inj 20 meq In 200 / 200 100 ml @ 50 mls/hr IV.SIG ONCE ONE Rx#:[id number] NS Inj 250 ML @ 15 mls/hr IV. 90 / 90 SIG ONCE JACOB Rx#:[id number] Oral 0 / 0 Intake (Blood Product) Amt 0 / 0 400 / 400 Rbc As-3 Leukoreduced Unit 0 / 0 400 / 400 [id number] Rbc As-3 Leukoreduced Unit 0 / 0 [id number] Other: # Incontinent Voids 3 Results 11/01/18 14:28 11/01/18 14:28 Cardiac Enzymes 11/01/18 11/01/18 Range/Units 03:49 03:49 AST 64 H (15-37) U/L Troponin I 0.10 H (0.02-0.05) ng/mL B-Natriuretic Peptide 710 H (0-100) pg/mL Coagulation 11/01/18 11/01/18 Range/Units 03:49 03:49 PT 10.5 (9.8-11.6) sec APTT 25.8 (23.4-31.7) sec B-Natriuretic Peptide 710 H (0-100) pg/mL CBC 18 11/01/18 Range/Units 03:49 14:28 WBC 1.3 L 1.4 L (4.0-11.0) th/mm3 RBC 2.24 L 3.52 L (4.00-5.30) mil/mm3 Hgb 6.8 L* 11.2 L D (11.6-15.3) gm/dL Hct 20.4 L* 32.4 L (35.0-46.0) % Plt Count 204 160 (150-450) th/mm3 Neut # (Auto) 1.1 L 1.2 L (1.8-7.7) th/mm3 Lymph # (Auto) 0.1 L 0.1 L (1.0-4.8) th/mm3 [place] # (Auto) 0.0 0.0 (0.0-0.9) th/mm3 Eos # (Auto) 0.0 0.0 (0.0-0.4) th/mm3 Baso # (Auto) 0.0 0.0 (0.0-0.2) th/mm3 Comprehensive Metabolic Panel 11/01/18 11/01/18 11/01/18 Range/Units 03:49 03:49 14:28 Sodium 142 Cancelled 141 (136-145) meq/L Potassium 2.3 L* Cancelled 3.1 L D (3.5-5.1) meq/L Chloride 104 Cancelled 106 (98-107) meq/L Carbon Dioxide 24.2 Cancelled 23.8 (21.0-32.0) meq/L BUN 75 H Cancelled 75 H (7-18) mg/dL Creatinine 2.76 H Cancelled 2.76 H (0.50-1.00) mg/dL Calcium 7.1 L* Cancelled 7.2 L* (8.5-10.1) mg/dL AST 64 H (15-37) U/L ALT 80 H (10-53) U/L Alkaline Phosphatase 446 H (45-117) U/L Total Protein 4.3 L (6.4-8.2) g/dL Albumin 1.4 L 1.3 L (3.4-5.0) g/dL Intake and Output 11/01/18 11/01/18 11/01/18 06:59 14:59 22:59 Intake Total 0 / 0 690 / 690 0 / 0 Balance 0 / 0 690 / 690 0 / 0 Intake: IV 290 / 290 KCl 20 mEq Premix Inj 20 meq In 200 / 200 100 ml @ 50 mls/hr IV.SIG ONCE ONE Rx#:[id number] NS Inj 250 ML @ 15 mls/hr IV. 90 / 90 SIG ONCE JACOB Rx#:[id number] Oral 0 / 0 Intake (Blood Product) Amt 0 / 0 400 / 400 Rbc As-3 Leukoreduced Unit 0 / 0 400 / 400 [id number] Rbc As-3 Leukoreduced Unit 0 / 0 [id number] Other: # Incontinent Voids 3 Weight 95.254 kg - Imaging and Cardiology Imaging: Impressions Hip CT 11/01/18 00:00 CONCLUSION: 1. Very subtle lucency involving the left greater trochanter which likely represents nondisplaced fracture. 2. Diffuse anasarca. 3. Uncomplicated colonic diverticulosis. 4. Degenerative changes are noted involving the lower lumbar spine. Chest X-Ray 11/01/18 03:44 CONCLUSION: No obvious infiltrate or mass. No visible pneumothorax or displaced rib fracture Head CT 11/01/18 03:44 CONCLUSION: 1. Negative CT Head non contrast. . Hip X-Ray 11/01/18 03:49 CONCLUSION: On the single view the pelvis and concerned about the inferior femoral neck for slightly impacted fracture. There are 2 views are entirely normal Abdomen/Bladder Ultrasound 11/01/18 16:12 CONCLUSION: 1. Significantly limited exam due to patient's inability to tolerate positioning. 2. No sonographic evidence for gross obstructive uropathy. 3. Echogenic kidneys consistent with medical renal disease. Assessment and Plan - Assessment (1) Severe anemia Code(s): D64.9 - Anemia, unspecified Status: Acute (2) Syncope Code(s): R55 - Syncope and collapse Status: Acute (3) Atrial fibrillation with rapid ventricular response Code(s): I48.91 - Unspecified atrial fibrillation Status: Acute - Plan 1.. AFib RVR. Presumed new diagnosis. probably related to acute blood loss anemia, severe pain from hip fracture. Will initiate IV Cardizem drip for rate control. No Anticoagulation due to possible acute hip fracture echocardiogram ordered 2. severe anemia. Likely due to chronically disease. Being transfused, hemoglobin up from 6 0.4-11. 3. Syncope. Etiology to be determined. Continue telemetry monitoring. Waiting for echo she may need event monitor when she discharge. 4. Left hip pain. Questionable fracture. Orthopedic surgeon following. Okay to proceed he hip surgery if indicated From Cardiology standpoint.
[2018-11-01] MEDS ORDERED: dilTIAZem Inj 125 MG in Sodium Chlor 0.9% Inj 100 ML IV.CONT PRN (20:00)
[2018-11-01] MEDS ORDERED: Torsemide 20 MG Tablet PO SCH (21:00)
--- NOTE | 2018-11-01 22:06 | MR ---
EXAM DATE: 11/01/2018 9:54 PM EST AGE/SEX: 73 years / Female INDICATIONS: Fracture. CLINICAL DATA: This is the patient's initial encounter. Patient reports that signs and symptoms have been present for 1 day and indicates a pain score of 4/10. MEDICAL/SURGICAL HISTORY: Chronic renal insufficiency. Hysterectomy. COMPARISON: [facility] – [place] HIP LEFT W/O CONTRAST, 11/01/2018. . TECHNIQUE: Multiplanar, multisequence MRI examination was performed without contrast. FINDINGS: Bone Marrow: There is homogeneous signal in the marrow of the proximal femora and pelvis. The femor al heads are normal in contour. No evidence of osteonecrosis or fracture. Effusion: Tiny left hip joint effusion is noted. Acetabular Labrum: Normal shape without evidence of tear. Bursa: No evidence of trochanteric or iliopsoas bursitis. Articular Cartilage: Normal contour and thickness. Muscles and Tendons: No evidence of tear or strain in the muscles groups about the hip. The tendons about the hip are intact. Other Soft Tissues: No evidence of soft tissue mass. Diffuse anasarca is noted. Uncomplicated coloni c diverticulosis is noted. CONCLUSION: 1. No acute fracture or marrow edema involving the left hip. 2. Tiny left hip joint effusion. 3. Diffuse anasarca. 4. Uncomplicated colonic diverticulosis. 5. Degenerative changes and scoliosis of the lower lumbar spine. Electronically signed by: Mayank Zurita MD Board Certified Radiologist 11/01/2018 10:04 PM EST
--- NOTE | 2018-11-02 01:05 | P.CONCC ---
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 She presented with syncope and severe acute left hip pain nutrition intern 11/[address] scan was found to have non- displaced hip fracture. She was also in new-onset afib. She was additionally severely anemic with hgb 6 on admission which responded to prbc transfusion and was 11 this morning. She remains very leukopenic which consultants consider likely chronic and secondary to her immunosuppressant regimen for her minimal change disease. She is followed by the [facility]. Cardiology consultation today recommended 2d echo and diltiazem drip for afib with RVR. Echo is still pending at this time. Tonight, she developed significant hypotension with sbp 70s. I was notified by the primary team and immediately evaluated the patient. She complains of significant fatigue and left hip pain. She denies chest pain, shortness of breath. denies n/v/c or abdominal pain. her at bedside endorses that she began with diarrhea tonight. she endorses a "hot feeling" and has ice packs for comfort, though she is afebrile. denies rigors/chills. denies cough, sputum production. She has gross anasarca which is chronic for her per her and her . Remainder of the ROS is negative. Troponins on admission were 0.1 and BNP 700, but no trend on these values. PMHx: minimal change disease, htn, prior dialysis for ~6 months in early 2018 Review of Systems All other systems reviewed negative except as stated in HPI PMFSH - History History Provided By: Patient, Family Member, Medical Record - Medical History Medical History: Medical History (Last Reviewed 11/02/18 @ 00:58 by Landon Pulido MD) Medical history unknown Surgical history unknown - Family History Family History: Family History (Last Updated 11/02/18 @ 00:59 by Landon Pulido MD) Other Family history non-contributory - Social History I have reviewed the patient's Social History: Yes - Tobacco History Second Hand Smoke Exposure: No Smoking Status: Never smoker - Alcohol History How Often Do You Have a Drink Containing Alcohol: Never - Substance Use History Substance History: No History of Abuse - Travel History Recent Travel in the [place] Within the Last 8 Weeks: No Recent Travel Out of the Country Within the Last 8 Weeks: No - Immunization History Tetanus Immunization: Unsure Medications and Allergies Active Medications: Active Medications Hydrocodone Bitart/Acetaminophen ([place] 7.5/325) 1 tab PO Q4H PRN PRN Reason: PAIN SCALE 1 TO 10 Last Admin: 11/01/18 17:41 Dose: 1 tab Allopurinol (Zyloprim) 100 mg PO DAILY JACOB Hydromorphone HCl (Dilaudid Pf Inj) 0.5 mg IV.PUSH Q4H PRN PRN Reason: BREAKTHROUGH PAIN Last Admin: 11/01/18 12:50 Dose: 0.5 mg Sodium Chloride (Ns Inj) 250 mls @ 15 mls/hr IV.SIG ONCE JACOB Stop: 11/02/18 02:39 Last Admin: 11/01/18 17:10 Dose: Not Given Diltiazem HCl 125 mg/ Sodium (Chloride) 125 mls @ 5 mls/hr IV.CONT TITRATE PRN ; Protocol PRN Reason: Per Protocol Metolazone (Zaroxolyn) 2.5 mg PO DAILY [facility] Non-Formulary Medication (Corticotropin [Acthar H.P.]) 80 unit IM Q72H JACOB Ondansetron HCl (Zofran Inj) 4 mg IV.PUSH Q6H PRN PRN Reason: nausea, vomiting Pantoprazole Sodium (Protonix Inj) 40 mg IV.PUSH Q24H JACOB Last Admin: 11/01/18 12:14 Dose: 40 mg Potassium Chloride (K-Dur) 20 meq PO DAILY JACOB Prednisone (Deltasone) 10 mg PO DAILY JACOB Torsemide (Demadex) 20 mg PO BID JACOB Last Admin: 11/01/18 20:14 Dose: Not Given Allergies Allergy/AdvReac Type Severity Reaction Status Date / Time No Known Allergies Allergy Verified 11/01/18 03:44 Home Medications Medication Instructions Recorded Confirmed Type allopurinol 100 mg PO DAILY 11/01/18 11/01/18 History cholecalciferol (vitamin D3) 5,000 unit PO DAILY 11/01/18 11/01/18 History [Vitamin D3] corticotropin [Acthar H.P.] 80 unit IM Q72H 11/01/18 11/01/18 History famotidine 40 mg PO DAILY 11/01/18 11/01/18 History metolazone 2.5 mg PO DAILY 11/01/18 11/01/18 History nifedipine 30 mg PO DAILY 11/01/18 11/01/18 History nifedipine 60 mg PO QPM 11/01/18 11/01/18 History potassium chloride 20 meq PO BID 11/01/18 11/01/18 History prednisone 10 mg PO DAILY 11/01/18 11/01/18 History sulfamethoxazole-trimethoprim 1 tab PO 3XW 11/01/18 11/01/18 History torsemide 20 mg PO BID 11/01/18 11/01/18 History Physical Exam Vital signs: Vital Signs 11/01/18 03:44 11/01/18 03:52 11/01/18 06:20 Temperature 36.6 C Pulse Rate 119 H 96 H Respiratory Rate 21 18 Blood Pressure 163/71 H 119/56 L Pulse Oximetry 95 95 100 11/01/18 06:42 11/01/18 07:19 11/01/18 07:24 Temperature 36.9 C 36.7 C Pulse Rate 99 H 101 H 100 H Respiratory Rate 15 20 Blood Pressure 107/53 L 126/60 Pulse Oximetry 100 98 97 11/01/18 07:34 11/01/18 07:56 11/01/18 08:00 Temperature 36.8 C Pulse Rate 101 H 97 H Respiratory Rate 19 20 Blood Pressure 110/50 L 111/52 L Pulse Oximetry 98 98 100 11/01/18 09:00 11/01/18 10:00 11/01/18 11:00 Temperature 36.4 C Pulse Rate 100 H 98 H 104 H Respiratory Rate 18 Blood Pressure 114/60 Pulse Oximetry 100 11/01/18 12:00 11/01/18 13:00 11/01/18 14:00 Temperature 36.5 C Pulse Rate 96 H 100 H 108 H Respiratory Rate 18 Blood Pressure 112/53 L Pulse Oximetry 100 11/01/18 15:00 11/01/18 16:00 11/01/18 20:00 Temperature 36.6 C 37.2 C Pulse Rate 106 H 116 H 100 H Respiratory Rate 18 22 Blood Pressure 100/65 110/54 L Pulse Oximetry 95 97 11/01/18 20:20 11/01/18 21:00 11/01/18 23:00 Temperature Pulse Rate 98 H 111 H 120 H Respiratory Rate Blood Pressure 84/50 L 80/51 L Pulse Oximetry 11/01/18 23:26 11/01/18 23:51 11/02/18 00:00 Temperature 37.1 C Pulse Rate 108 H 108 H Respiratory Rate 20 22 Blood Pressure 91/51 L Pulse Oximetry 97 Intake & Output 11/01/18 11/01/18 11/02/18 06:59 18:59 06:59 Intake Total 0 / 0 690 / 690 Balance 0 / 0 690 / 690 Weight 95.254 kg Intake: IV 290 / 290 KCl 20 mEq Premix Inj 20 meq In 200 / 200 100 ml @ 50 mls/hr IV.SIG ONCE ONE Rx#:[id number] NS Inj 250 ML @ 15 mls/hr IV. 90 / 90 SIG ONCE JACOB Rx#:[id number] Oral 0 / 0 Intake (Blood Product) Amt 0 / 0 400 / 400 Rbc As-3 Leukoreduced Unit 0 / 0 400 / 400 [id number] Rbc As-3 Leukoreduced Unit 0 / 0 [id number] Other: # Incontinent Voids 3 Narrative: gen: elderly female who is quite visibly deconditioned and frail, appears chronically ill, lying in bed, in distress due to hip pain. heent: nc. at. perrl. mucous membranes moist. neck: no jvd. trachea midline. chest: equal chest rise. nc o2. cv: tachycardic rate in the 130s, irregularly irregular rhythm. afib by tele. sbp 70s on my evaluation, map 52 mmHg. abd: soft, nontender, nondistended. no guarding. extr: left hip with significant tenderness to palpation. large ecchymoses over left anterior thigh. distal pulses 2+. gross anasarca up to the abdomen with pitting edema. neuro: RASS -1. awakens and follows commands. oriented x 3. moves all extremities. no focal deficits. Septic Shock Reassessment Septic shock perfusion: reassessment completed Assessment and Plan - Assessment and Plan Plan: Assessment: 73yF with chronic kidney disease who presents with syncope, likely acute hip fracture, anemia, and now acute hypotension and shock. Highest on the differential is cardiogenic shock vs. hypovolemic/hemorrhagic shock. Recent anemia Neuro: Acute pain secondary to left hip fracture - dilaudid prn for pain, decrease dose to 0.2mg iv q4h - lortab po prn - frequent neuro checks - avoid long-acting sedatives Resp: - o2 by nc for goal spo2 > 90% - head of bed elevated - I.S. CV: New-onset atrial fibrillation with rapid ventricular response Undifferentiated Shock: hypovolemic/hemorrhagic vs. cardiogenic Elevated troponin Congestive heart failure, unknown type - repeat ck, ckmb, trop - repeat BNP - trend lactates - crystalloid bolus - check cbc to rule out additional hemorrhage - may require vasopressors to keep map > 65 mmHg. - appreciate cardiology input - f/u 2d echo in the AM - bedside critical care echo 11/02 overnight: mildly depressed LVEF, no pericardial effusion, collapsable IVC with > 50% change with respiration. - unclear if elevated initial troponin represents NSTEMI vs. poor renal clearance. trending should give some diagnostic usefulness. - clearly too hypotensive for diltiazem infusion at this time. digoxin may be more useful, and may be forced to resort to amiodarone to control HR in this setting. Renal: Minimal change disease CKD stage IV/V Acute kidney injury superimposed on CKD - strict i/o's - hold home diuretics until further information can be obtained. - appreciate nephrology input. FEN/GI: Acute protein calorie malnutrition- severe Anasarca/Total body volume overload Acute intravascular volume depletion Hypokalemia Hypomagnesemia Hypocalcemia Lactic Acidosis - clinically appears quite malnourished chronically from chronic illness. - send prealbumin - repeat bmp, mg, phos - aggressive replacement of electrolytes, targeting K > 4.5, Mg > 2.5 in the setting of new-onset afib RVR - 1 L ivf bolus now. will start low-dose ivf. Heme/ID: Acute Anemia- multifactorial, iron deficiency, acute blood loss, chronic disease Leukopenia- chronic, secondary to immunosuppressant use Worsening neutropenia Thrombocytopenia - no infectious etiology suspected at this time - recheck cbc - transfuse to keep hgb > 7 - platelet count dropping. no recent exposure to heparin, and drop is < 3 days from admission. 4T score low probability for HIT. likely consumptive from acute bleeding. will hold on transfusing unless plt < 50k or worsening acute bleeding. - diarrhea is new and acute. no other signs of infection to suggest infectious diarrhea, however leukopenia is concerning and will send c. diff toxin PCR in the setting of immunosuppression. Endocrine: Chronic steroid use Acute hypoglycemia - d50w as needed. start d5NS @ 84cc/hr - close monitoring of serum glucose - continue home prednisone 10mg po daily to prevent acute adrenal crisis. MSK: Possible left hip fracture - MRI appears to be negative for acute fracture - ortho consulted - with regard to medical clearance for surgery: At this point, with questionable evidence of whether or not the fracture exists, there are a number of acute non-orthopedic medical issues which need to be addressed prior to the non-emergent, non-displaced potential hip fracture. At the moment, I would recommend against any potential emergent surgical repair until her cardiac and other acute medical issues are resolved. Prophylaxis: - SCDs - hold pharmacologic dvt prophylaxis in the setting of acute severe anemia - protonix iv Lines: - piv - may require central access, but has had dialysis in the recent past: will attempt to avoid central access if possible at this time. Dispo: - transfer to ICU. Critically ill with new shock and hypotension. This patient remains critically ill with one or more organ systems which are or may become a threat to life. I have spent in excess of 52 minutes discontinuously in the care and management of this patient. This time is exclusive of procedures, and includes, but is not limited to, evaluation of the patient, review of the medical record, discussions with family, consultants, nursing staff, or respiratory therapy, and documentation in the medical record.
[2018-11-02 01:14] LABS: Baso % (Auto) 1.6 % (0.0-2.0); Eos % (Auto) 3.8 % (0.0-4.0); Hemoglobin 10.6 gm/dL (11.6-15.3); Lymph % (Auto) 5.1 % (9.0-44.0); Mean Corpuscular Hemoglobin 30.9 pg (27.0-34.0); Mean Corpuscular Volume 90.9 fL (80.0-100.0); Mono % (Auto) 1.7 % (0.0-8.0); Neut # (Auto) 0.6 th/mm3 (1.8-7.7); Neut % (Auto) 87.8 % (16.0-70.0); Platelet Count 92 th/mm3 (150-450); Red Blood Count 3.42 mil/mm3 (4.00-5.30); Red Cell Distribution Width 17.4 % (11.6-17.2); White Blood Count 0.7 th/mm3 (4.0-11.0)
[2018-11-02] MEDS ORDERED: HYDROmorphone PF Inj 1 MG/ML Ampul IV.PUSH PRN (01:32)
[2018-11-02 01:37] LABS: Anion Gap 12 meq/L (5-15); Blood Urea Nitrogen 79 mg/dL (7-18); Calcium 6.8 mg/dL (8.5-10.1); Carbon Dioxide 21.6 meq/L (21.0-32.0); Chloride 109 meq/L (98-107); Creatine Kinase 108 U/L (26-192); Glomerular Filtration Rate 15 mL/min (>89); Magnesium 1.9 mg/dL (1.5-2.5); Phosphorus 4.8 mg/dL (2.5-4.9); Prealbumin 14 mg/dL (20-40); Sodium 143 meq/L (136-145); Troponin I 0.12 ng/mL (0.02-0.05)
[2018-11-02] MEDS ORDERED: Albumin Human 5% Inj 500 ML IV.SIG STA (01:37)
[2018-11-02 01:40] LABS: Glucose,Random 42 mg/dL (74-106)
[2018-11-02] MEDS ORDERED: Dextrose 50% in Water 50 ML Vial IV.PUSH PRN (01:41)
[2018-11-02] MEDS ORDERED: Potassium Chloride 25 MEQ Effervescent Tablet PO ONE (01:43)
[2018-11-02] MEDS ORDERED: Calcium Gluconate Inj 2 GM in Sodium Chlor 0.9% Inj 100 ML IV.SIG ONE (01:43)
[2018-11-02] MEDS ORDERED: Potassium Chlor 40 mEq Premix 40 MEQ/100 ML PIGGYBACK IV.SIG ONE (01:44)
[2018-11-02] MEDS ORDERED: Magnesium Sulfate Inj 2 GM in Sodium Chlor 0.9% Inj 96 ML IV.SIG ONE (01:44)
[2018-11-02] MEDS ORDERED: Digoxin Inj 500 MCG/2 ML Ampul IV.PUSH ONE ×2 (01:45→13:10)
[2018-11-02] MEDS ORDERED: Dextrose 5%/NaCl 0.9% Inj 1,000 ML IV.CONT SCH (01:45)
[2018-11-02] MEDS ORDERED: Amiodarone Inj 150 MG in Dextrose 5% in Water Inj 97 ML IV.SIG ONE ×2 (01:45)
[2018-11-02] MEDS ORDERED: Sod Chloride 0.9% Inj 1,000 ML IV.SIG SCH (01:45)
--- NOTE | 2018-11-02 01:50 | ECG ---
Date Performed: 11/01/2018 Time Performed: 04:03:05 PTAGE: 73 years EKG: ATRIAL FIBRILLATION WITH RAPID VENTRICULAR RESPONSE ST DEVIATION AND MODERATE T-WAVE ABNORM ALITY, CONSIDER LATERAL ISCHEMIA ST DEVIATION AND MODERATE T-WAVE ABNORMALITY, CONSIDER INFERIOR ISCH EMIA ABNORMAL ECG PREVIOUS TRACING : 05/24/2015 16.49 Compared to previous tracing, now in AFib with RVR with ST /T wave changes DOCTOR: Oleg Omer Interpretating Date/Time 11/02/2018 01:49:18
[2018-11-02 01:51] LABS: Albumin 0.9 g/dL (3.4-5.0); Calcium-Albumin Corrected 9.3 mg/dL (8.5-10.1)
[2018-11-02 01:54] LABS: Creatine Kinase MB 1.7 ng/mL (0.5-3.6)
[2018-11-02 02:20] LABS: Eosinophils 6 % (0-4); Lymphocytes 2 % (9-44); Metamyelocytes 20 % (0-1); Monocytes 2 % (0-8); Myelocytes 10 % (0-0); Tallied Nucleated RBC 19 (0-0)
[2018-11-02 02:24] LABS: Platelet Estimate Normal (Normal); Toxic Vacuolation Present
[2018-11-02] MEDS: Potassium Chlor 20 mEq Premix 20 MEQ/100 ML PIGGYBACK IV.SIG SCH ×2 (03:32→05:40)
[2018-11-02] MEDS ORDERED: Chlorhexidine Gluconate 2% 1 Pack (2 Cloths) TOPICAL SCH (04:00)
[2018-11-02] MEDS ORDERED: Chlorhexidine Gluconate 2% 1 Pack (2 Cloths) TOPICAL PRN (04:00)
[2018-11-02 05:37] LABS: Albumin 1.5 g/dL (3.4-5.0); Calcium 7.1 mg/dL (8.5-10.1); Carbon Dioxide 18.2 meq/L (21.0-32.0); Phosphorus 4.8 mg/dL (2.5-4.9); Potassium 3.7 meq/L (3.5-5.1)
[2018-11-02 05:41] LABS: Hematocrit 29.3 % (35.0-46.0); Hemoglobin 9.9 gm/dL (11.6-15.3); Mean Corpuscular HGB Conc 33.9 % (32.0-36.0); Mean Corpuscular Hemoglobin 31.2 pg (27.0-34.0); Mean Corpuscular Volume 92.3 fL (80.0-100.0); Mean Platelet Volume 8.6 fL (7.0-11.0); Platelet Count 73 th/mm3 (150-450); Red Blood Count 3.17 mil/mm3 (4.00-5.30); Red Cell Distribution Width 17.4 % (11.6-17.2); White Blood Count 0.2 th/mm3 (4.0-11.0)
--- NOTE | 2018-11-02 06:29 | CT ---
EXAM DATE: 11/02/2018 6:03 AM EST AGE/SEX: 73 years / Female INDICATIONS: Abdominal pain, evaluate for pneumatosis. CLINICAL DATA: This is the patient's initial encounter. Patient reports that signs and symptoms have been present for 1 day and indicates a pain score of 10/10. MEDICAL/SURGICAL HISTORY: Non-responsive. Hysterectomy. Cholecystectomy. Breast augmentation. Abdominoplasty. RADIATION DOSE: 21.17 CTDI (mGy) COMPARISON: POI, CT ABDOMEN W AND W/O CONTRAST, 06/14/2015. . TECHNIQUE: Multiple contiguous axial images were obtained through the abdomen. Images were obtained using multiple row detector helical technique. Using automated exposure control and adjustment of the mA and/or kV according to patient size, radiation dose was kept as low as reasonably achievable to o btain optimal diagnostic quality images. DICOM format image data is available electronically for rev iew and comparison. FINDINGS: LOWER LUNGS: Visualized lung bases demonstrate trace bilateral pleural effusions and bilateral airsp fadi consolidation. Subcarinal calcified lymph node. Mild cardiomegaly. LIVER: Gallbladder is surgically absent. There is stable intra and extra hepatic biliary ductal prom inence with common bile duct measuring up to 2 cm extending to the level of the ampulla. Liver otherw ise appears grossly unremarkable. SPLEEN: Multiple splenic calcifications. PANCREAS: Grossly unremarkable. KIDNEYS: Kidneys are symmetrical in size without evidence for radiopaque renal calculi or hydronephr osis. No significant contour deforming renal abnormality. ADRENAL GLANDS: Unremarkable. AORTA: Corrina-aneurysmal. BOWEL/MESENTERY: Mild sigmoid diverticulosis. No dilated loops of bowel. The cecum and sigmoid colon have a normal configuration. No significant free fluid or drainable fluid collections. No free air. There is an appendicolith. Appendix otherwise appears unremarkable. ABDOMINAL WALL: Intact. Diffuse anasarca. BLADDER: Contours are smooth. REPRODUCTIVE: Grossly unremarkable. BONY STRUCTURES: Advanced degenerative spondylosis of the lower lumbar spine with grade 1 anterolist hesis of L4 on L5 and L3 on L4. CONCLUSION: 1. No evidence for bowel obstruction, pneumatosis or free air as questioned. 2. Trace pleural effusions and dense airspace consolidation at the lung bases bilaterally, left grea ter than right. Cannot exclude pneumonia or aspiration in the appropriate clinical setting. 3. There is a small appendicolith with normal-appearing appendix. 4. Diffuse abdominal wall anasarca similar to prior exam. 5. Sigmoid diverticulosis without definitive evidence for diverticulitis. 6. Stable intra and extra hepatic bile duct prominence extending to the level of the ampulla of unce rtain etiology. This is unchanged from remote 2015 CT exam. Electronically signed by: Amari Montoya MD Board Certified Radiologist 11/02/2018 6:28 AM ES T
[2018-11-02] MEDS ORDERED: Vasopressin Inj 40 UNIT in Sodium Chlor 0.9% Inj 98 ML IV.CONT PRN (06:55)
[2018-11-02] MEDS ORDERED: Vasopressin Inj 40 UNIT in Dextrose 5% in Water Inj 98 ML IV.CONT PRN ×2 (07:15)
--- NOTE | 2018-11-02 07:22 | P.PNOP ---
Subjective Interval history: Resting at this time. Continues to complain of pain. On nasal cannula. Physical Exam Vital signs: Vital Signs 11/01/18 07:24 11/01/18 07:34 11/01/18 07:56 Temperature 98.2 F Pulse Rate 100 H 101 H 97 H Respiratory Rate 19 20 Blood Pressure 110/50 L 111/52 L Pulse Oximetry 97 98 98 11/01/18 08:00 11/01/18 09:00 11/01/18 10:00 Temperature 97.6 F Pulse Rate 100 H 98 H Respiratory Rate 18 Blood Pressure 114/60 Pulse Oximetry 100 100 11/01/18 11:00 11/01/18 12:00 11/01/18 13:00 Temperature 97.7 F Pulse Rate 104 H 96 H 100 H Respiratory Rate 18 Blood Pressure 112/53 L Pulse Oximetry 100 11/01/18 14:00 11/01/18 15:00 11/01/18 16:00 Temperature 97.9 F Pulse Rate 108 H 106 H 116 H Respiratory Rate 18 Blood Pressure 100/65 Pulse Oximetry 95 11/01/18 20:00 11/01/18 20:20 11/01/18 21:00 Temperature 98.9 F Pulse Rate 100 H 98 H 111 H Respiratory Rate 22 Blood Pressure 110/54 L 84/50 L Pulse Oximetry 97 11/01/18 23:00 11/01/18 23:26 11/01/18 23:51 Temperature 98.8 F Pulse Rate 120 H 108 H Respiratory Rate 20 22 Blood Pressure 80/51 L 91/51 L Pulse Oximetry 97 11/02/18 00:00 11/02/18 00:05 11/02/18 01:53 Temperature Pulse Rate 108 H 130 H Respiratory Rate 22 Blood Pressure 75/45 L Pulse Oximetry 96 94 L Intake & Output 11/01/18 11/02/18 11/02/18 18:59 06:59 18:59 Intake Total 690 / 690 100 / 100 Balance 690 / 690 100 / 100 Intake: IV 290 / 290 100 / 100 KCl 20 mEq Premix Inj 20 meq In 200 / 200 100 / 100 100 ml @ 50 mls/hr IV.SIG Q2H JACOB Rx#:[id number] NS Inj 250 ML @ 15 mls/hr IV. 90 / 90 SIG ONCE JACOB Rx#:[id number] Oral 0 / 0 Intake (Blood Product) Amt 400 / 400 Rbc As-3 Leukoreduced Unit 400 / 400 [id number] Rbc As-3 Leukoreduced Unit 0 / 0 [id number] Other: # Incontinent Voids 3 Narrative: Awake, alert, no acute distress Left lower extremity: Patient continues to complain of pain. She is neurovascularly intact distally. Gross anasarca throughout Results - Labs CBC & Chem 7: 11/02/18 04:43 11/02/18 04:43 Laboratory Results - last 24 hr 11/01/18 11/01/18 11/01/18 04:56 09:49 14:28 WBC 1.4 L RBC 3.52 L Hgb 11.2 L D Hct 32.4 L MCV 92.2 MCH 31.8 MCHC 34.5 RDW 17.8 H Plt Count 160 MPV 9.0 Prelim Diff (Auto) Slide review pending Neut % (Auto) 87.0 H Lymph % (Auto) 6.9 L Placer % (Auto) 3.0 Eos % (Auto) 2.5 Baso % (Auto) 0.6 Neut # (Auto) 1.2 L Lymph # (Auto) 0.1 L Placer # (Auto) 0.0 Eos # (Auto) 0.0 Baso # (Auto) 0.0 WBC Differential Manual diff final Seg Neuts % (Manual) 15 L Band Neuts % (Manual) 55 H Lymphocytes % (Manual) 3 L Monocytes % (Manual) 1 Eosinophils % (Manual) 1 Metamyelocytes % (Man) 20 H Myelocytes % (Man) 3 H Promyelocytes % (Man) 2 H Abs Neuts (Manual) 1.3 L Nucleated RBCs/100 WBC 12 H Differential Comment . Toxic Vacuolation Present H Platelet Estimate Platelet Morphology Normal RBC Morphology Not Reportable Sodium Potassium Chloride Carbon Dioxide Anion Gap BUN Creatinine Estimated GFR POC Glucose Random Glucose Lactic Acid Calcium Calcium Adj for Albumin Phosphorus Magnesium Iron TIBC % Saturation Ferritin Total Bilirubin AST ALT Alkaline Phosphatase Total Creatine Kinase CK-MB (CK-2) Troponin I B-Natriuretic Peptide Total Protein Albumin Prealbumin Vitamin B12 Nasal Screen MRSA (PCR) MTS Gel Crossmatch See Detail See Detail 11/01/18 11/01/18 11/02/18 14:28 14:28 01:06 WBC 0.7 L RBC 3.42 L Hgb 10.6 L Hct 31.0 L MCV 90.9 MCH 30.9 MCHC 34.0 RDW 17.4 H Plt Count 92 L D MPV 8.0 Prelim Diff (Auto) Slide review pending Neut % (Auto) 87.8 H Lymph % (Auto) 5.1 L Placer % (Auto) 1.7 Eos % (Auto) 3.8 Baso % (Auto) 1.6 Neut # (Auto) 0.6 L Lymph # (Auto) 0.0 L Placer # (Auto) 0.0 Eos # (Auto) 0.0 Baso # (Auto) 0.0 WBC Differential Manual diff final Seg Neuts % (Manual) 24 Band Neuts % (Manual) 36 H Lymphocytes % (Manual) 2 L Monocytes % (Manual) 2 Eosinophils % (Manual) 6 H Metamyelocytes % (Man) 20 H Myelocytes % (Man) 10 H Promyelocytes % (Man) Abs Neuts (Manual) 0.6 L Nucleated RBCs/100 WBC 38 H Differential Comment . Toxic Vacuolation Present H Platelet Estimate Normal Platelet Morphology RBC Morphology Sodium 141 Potassium 3.1 L D Chloride 106 Carbon Dioxide 23.8 Anion Gap 11 BUN 75 H Creatinine 2.76 H Estimated GFR 17 L POC Glucose Random Glucose 99 Lactic Acid Calcium 7.2 L* Calcium Adj for Albumin 9.4 Phosphorus Magnesium Iron 15 L 15 L TIBC 172 L % Saturation 8.7 L Ferritin 207 Total Bilirubin AST ALT Alkaline Phosphatase Total Creatine Kinase CK-MB (CK-2) Troponin I B-Natriuretic Peptide Total Protein Albumin 1.3 L Prealbumin Vitamin B12 1035 H Nasal Screen MRSA (PCR) MTS Gel Crossmatch 11/02/18 11/02/18 11/02/18 01:06 01:06 01:06 WBC RBC Hgb Hct MCV MCH MCHC RDW Plt Count MPV Prelim Diff (Auto) Neut % (Auto) Lymph % (Auto) Placer % (Auto) Eos % (Auto) Baso % (Auto) Neut # (Auto) Lymph # (Auto) Placer # (Auto) Eos # (Auto) Baso # (Auto) WBC Differential Seg Neuts % (Manual) Band Neuts % (Manual) Lymphocytes % (Manual) Monocytes % (Manual) Eosinophils % (Manual) Metamyelocytes % (Man) Myelocytes % (Man) Promyelocytes % (Man) Abs Neuts (Manual) Nucleated RBCs/100 WBC Differential Comment Toxic Vacuolation Platelet Estimate Platelet Morphology RBC Morphology Sodium 143 Potassium 3.0 L Chloride 109 H Carbon Dioxide 21.6 Anion Gap 12 BUN 79 H Creatinine 2.99 H Estimated GFR 15 L POC Glucose Random Glucose 42 L* Lactic Acid 3.6 H Calcium 6.8 L* Calcium Adj for Albumin 9.3 Phosphorus 4.8 Magnesium 1.9 Iron TIBC % Saturation Ferritin Total Bilirubin AST ALT Alkaline Phosphatase Total Creatine Kinase 108 CK-MB (CK-2) 1.7 Troponin I 0.12 H B-Natriuretic Peptide 1623 H Total Protein Albumin 0.9 L Prealbumin 14 L Vitamin B12 Nasal Screen MRSA (PCR) MTS Gel Crossmatch 11/02/18 11/02/18 11/02/18 01:08 02:38 03:03 WBC RBC Hgb Hct MCV MCH MCHC RDW Plt Count MPV Prelim Diff (Auto) Neut % (Auto) Lymph % (Auto) Placer % (Auto) Eos % (Auto) Baso % (Auto) Neut # (Auto) Lymph # (Auto) Placer # (Auto) Eos # (Auto) Baso # (Auto) WBC Differential Seg Neuts % (Manual) Band Neuts % (Manual) Lymphocytes % (Manual) Monocytes % (Manual) Eosinophils % (Manual) Metamyelocytes % (Man) Myelocytes % (Man) Promyelocytes % (Man) Abs Neuts (Manual) Nucleated RBCs/100 WBC Differential Comment Toxic Vacuolation Platelet Estimate Platelet Morphology RBC Morphology Sodium Potassium Chloride Carbon Dioxide Anion Gap BUN Creatinine Estimated GFR POC Glucose 65 L 81 Random Glucose Lactic Acid Calcium Calcium Adj for Albumin Phosphorus Magnesium Iron TIBC % Saturation Ferritin Total Bilirubin AST ALT Alkaline Phosphatase Total Creatine Kinase CK-MB (CK-2) Troponin I B-Natriuretic Peptide Total Protein Albumin Prealbumin Vitamin B12 Nasal Screen MRSA (PCR) Not detected MTS Gel Crossmatch 11/02/18 11/02/18 11/02/18 03:57 04:43 04:43 WBC 0.2 L D RBC 3.17 L Hgb 9.9 L Hct 29.3 L MCV 92.3 MCH 31.2 MCHC 33.9 RDW 17.4 H Plt Count 73 L MPV 8.6 Prelim Diff (Auto) Manual diff required Neut % (Auto) Lymph % (Auto) Placer % (Auto) Eos % (Auto) Baso % (Auto) Neut # (Auto) Lymph # (Auto) Placer # (Auto) Eos # (Auto) Baso # (Auto) WBC Differential Seg Neuts % (Manual) Band Neuts % (Manual) Lymphocytes % (Manual) Monocytes % (Manual) Eosinophils % (Manual) Metamyelocytes % (Man) Myelocytes % (Man) Promyelocytes % (Man) Abs Neuts (Manual) Nucleated RBCs/100 WBC Differential Comment . Toxic Vacuolation Platelet Estimate Platelet Morphology RBC Morphology Sodium 144 Potassium 3.7 Chloride 109 H Carbon Dioxide 18.2 L Anion Gap 17 H BUN 79 H Creatinine 3.09 H Estimated GFR 15 L POC Glucose 78 Random Glucose 72 L Lactic Acid Calcium 7.1 L* Calcium Adj for Albumin 9.1 Phosphorus 4.8 Magnesium 2.0 Iron TIBC % Saturation Ferritin Total Bilirubin 0.5 AST 57 H ALT 63 H Alkaline Phosphatase 334 H Total Creatine Kinase CK-MB (CK-2) Troponin I B-Natriuretic Peptide Total Protein 4.0 L Albumin 1.5 L D Prealbumin Vitamin B12 Nasal Screen MRSA (PCR) MTS Gel Crossmatch 11/02/18 04:43 WBC RBC Hgb Hct MCV MCH MCHC RDW Plt Count MPV Prelim Diff (Auto) Neut % (Auto) Lymph % (Auto) Placer % (Auto) Eos % (Auto) Baso % (Auto) Neut # (Auto) Lymph # (Auto) Placer # (Auto) Eos # (Auto) Baso # (Auto) WBC Differential Seg Neuts % (Manual) Band Neuts % (Manual) Lymphocytes % (Manual) Monocytes % (Manual) Eosinophils % (Manual) Metamyelocytes % (Man) Myelocytes % (Man) Promyelocytes % (Man) Abs Neuts (Manual) Nucleated RBCs/100 WBC Differential Comment Toxic Vacuolation Platelet Estimate Platelet Morphology RBC Morphology Sodium Potassium Chloride Carbon Dioxide Anion Gap BUN Creatinine Estimated GFR POC Glucose Random Glucose Lactic Acid 5.6 H* Calcium Calcium Adj for Albumin Phosphorus Magnesium Iron TIBC % Saturation Ferritin Total Bilirubin AST ALT Alkaline Phosphatase Total Creatine Kinase CK-MB (CK-2) Troponin I B-Natriuretic Peptide Total Protein Albumin Prealbumin Vitamin B12 Nasal Screen MRSA (PCR) MTS Gel Crossmatch - Imaging Impressions Hip CT 11/01/18 00:00 CONCLUSION: 1. Very subtle lucency involving the left greater trochanter which likely represents nondisplaced fracture. 2. Diffuse anasarca. 3. Uncomplicated colonic diverticulosis. 4. Degenerative changes are noted involving the lower lumbar spine. Abdomen/Bladder Ultrasound 11/01/18 16:12 CONCLUSION: 1. Significantly limited exam due to patient's inability to tolerate positioning. 2. No sonographic evidence for gross obstructive uropathy. 3. Echogenic kidneys consistent with medical renal disease. Hip MRI 11/01/18 19:37 CONCLUSION: 1. No acute fracture or marrow edema involving the left hip. 2. Tiny left hip joint effusion. 3. Diffuse anasarca. 4. Uncomplicated colonic diverticulosis. 5. Degenerative changes and scoliosis of the lower lumbar spine. Abdomen/Pelvis CT 11/02/18 05:37 CONCLUSION: 1. No evidence for bowel obstruction, pneumatosis or free air as questioned. 2. Trace pleural effusions and dense airspace consolidation at the lung bases bilaterally, left greater than right. Cannot exclude pneumonia or aspiration in the appropriate clinical setting. 3. There is a small appendicolith with normal-appearing appendix. 4. Diffuse abdominal wall anasarca similar to prior exam. 5. Sigmoid diverticulosis without definitive evidence for diverticulitis. 6. Stable intra and extra hepatic bile duct prominence extending to the level of the ampulla of uncertain etiology. This is unchanged from remote 2015 CT exam. Assessment and Plan - Assessment and Plan 73-year-old female with multiple medical problems with syncopal episode and reported left hip pain CT scan and MRI reviewed by myself. There is no evidence of acute or chronic appearing fracture around the left hip. There are mild degenerative changes. There is very minimal joint effusion. At this time I would not recommend surgical intervention. Patient can ambulate as tolerated with physical therapy when she is safe. Patient may be discharged once medically safe. She may follow-up as an outpatient in the orthopedic clinic as needed. Remainder of care by ICU and medical team
[2018-11-02] MEDS ORDERED: Etomidate Inj 20 MG/10 ML Ampul IV.PUSH ONE (07:56)
[2018-11-02] MEDS ORDERED: fentaNYL Citrate Inj 250 MCG/5 ML Ampul IV.PUSH ONE (07:56)
[2018-11-02] MEDS ORDERED: Succinylcholine Inj 200 MG/10 ML Vial IV.PUSH ONE (07:57)
[2018-11-02] MEDS ORDERED: Etomidate Inj 40 MG/20 ML Vial IV.PUSH ONE (07:58)
[2018-11-02] MEDS ORDERED: fentaNYL Citrate Inj 100 MCG/2 ML Ampul ONE (07:58)
[2018-11-02] MEDS ORDERED: Succinylcholine Inj 200 MG/10 ML Vial ONE (07:58)
[2018-11-02] MEDS ORDERED: Chlorhexidine 0.12% Oral Kit 15 ML UDC OROPHARYNG SCH (08:00)
--- NOTE | 2018-11-02 08:11 | XR ---
EXAM DATE: 11/02/2018 8:04 AM EST AGE/SEX: 73 years / Female INDICATIONS: Central line placement. CLINICAL DATA: This is the patient's subsequent encounter. Patient reports that signs and symptoms h ave been present for 2 days and indicates a pain score of Nonresponsive. MEDICAL/SURGICAL HISTORY: None. None. COMPARISON: [facility] – [place], CHEST 1V SINGLE AP, 11/01/2018. . FINDINGS: Right internal jugular central line has its tip in superior vena cava. No pneumothorax is noted. Biba silar patchiness is noted consistent with atelectasis/or infiltrate. The heart is enlarged but stable . CONCLUSION: 1. No pneumothorax status post placement of right internal jugular central line which has tip in sup erior vena cava. 2. Bibasilar patchiness consistent with atelectasis and/or infiltrate. 3. Cardiomegaly. Electronically signed by: Mayank Zurita MD Board Certified Radiologist 11/02/2018 8:09 AM EST
[2018-11-02] MEDS ORDERED: fentaNYL 10 mcg/mL Premix Drip 2,500 MCG/250 ML BAG IV.SIG PRN (08:34)
[2018-11-02 08:35] LABS: ABG Base Excess -10.4 mmol/L (-2-2); ABG PCO2 43 mmHg (38-42); ABG PO2 379 mmHG (61-120)
--- NOTE | 2018-11-02 08:37 | P.PCN ---
Date of procedure: 11/02/18 Pre-op diagnosis: Shock on vasopressors Post-op diagnosis: same Procedure: Ultrasound-guided right femoral arterial line placement Checklist completed, timeout completed. I wore a surgical cap, mask with protective eyewear, full gown and sterile gloves throughout the procedure. Right femoral region was prepped using chlorhexidine scrub and draped in sterile fashion. Under direct ultrasound guidance, the introducer needle was inserted into the right femoral artery and arterial flash was obtained. The needle was removed and a guidewire was advanced into the introducer needle. Following this 16 cm 20-gauge arterial catheter was placed over the guidewire using Seldinger technique and sutured at 16 cm to prevent dislodgment, due to very obese body habitus and subcutaneous edema. The wire was removed. A sterile central line dressing was placed over the catheter at the insertion site. The patient tolerated the procedure without any hemodynamic compromise. Anesthesia: local Surgeon: Johnathan Segundo Estimated blood loss (mL): 1 Pathology: none sent Condition: critical Disposition: ICU
--- NOTE | 2018-11-02 08:51 | P.PCN ---
Date of procedure: 11/02/18 Pre-op diagnosis: Hypotension/shock Post-op diagnosis: same Procedure: Diagnosis: Hypotension/shock Indications: Same Consent: Obtained from /emergent Anesthesia: Lidocaine 1% to site Description of the Procedure: At 0650, the patient was placed in the supine, mild-Trendelenburg position. The area was prepped and draped sterilely. A 19g needle was inserted under negative pressure aspiration and dark venous blood was obtained. A guidewire was inserted easily without resistance. A small incision was made using a #11 blade. Using a modified Seldinger technique, the dilator and 7F catheter were advanced over the guidewire without resistance. All ports were aspirated and flushed, and had brisk blood return. The line was secured at 17cm at the skin using 2-0 silk interrupted sutures. A Biopatch and Transparent sterile dressing were applied. There were no immediate complications noted. There was minimal EBL. The patient tolerated the procedure well. Ultrasound Guidance: Ultrasound guidance was used to identify the RIJ. The vascular anatomy was normal. The vessel was cannulated under direct, real-time ultrasound visualization. After placement of the guidewire, confirmation of the guidewire in the lumen of the vessel was made using ultrasound visualization, before dilation of the tract. A Chest x-ray has been ordered. I personally performed the procedure. Anesthesia: local Estimated blood loss (mL): 3 Condition: critical Disposition: ICU
--- NOTE | 2018-11-02 08:58 | P.PCN ---
Date of procedure: 11/02/18 Pre-op diagnosis: Unresponsiveness, hypoxia Post-op diagnosis: same Procedure: Endotracheal Intubation Diagnosis: Unresponsiveness, hypoxia Indications: Same Consent: Emergent. Previously discussed with as a possibility prior to him leaving the at 720 am Anesthesia: See MAR Description of the Procedure: Patient's airway assessed noted to be a Mallampati classification of 3, with significant anterior airway thyroid mental distance < 2cm. The patient was positioned in the sniffing position. Pre-oxygenation was performed using a 100% O2 BVM. Anesthesia was induced via rapid sequence. A Glidescope 3 was used for laryngoscopy and a Grade 1 view with cricoid was obtained. A 7.5 cuffed endotracheal tube was inserted atraumatically through the vocal cords . Confirmation of correct endotracheal tube placement was made by equal and bilateral breath sounds and colorimetric CO2 detection. The endotracheal tube was secured at 23 cm at the teeth. There were no immediate complications noted. The patient remained hemodynamically stable throughout the procedure. A chest x-ray has been ordered. I personally performed the procedure. Condition: critical Disposition: ICU
--- NOTE | 2018-11-02 08:59 | XR ---
EXAM DATE: 11/02/2018 8:54 AM EST AGE/SEX: 73 years / Female INDICATIONS: Post intubation. CLINICAL DATA: This is the patient's subsequent encounter. Patient reports that signs and symptoms h ave been present for 2 days and indicates a pain score of Nonresponsive. MEDICAL/SURGICAL HISTORY: None. None. COMPARISON: [facility] – [place], CHEST 1V SINGLE AP, 11/02/2018. . FINDINGS: The endotracheal tube has its tip 3 cm above the jarocho in good position. A nasogastric tube has tip below diaphragm. Right internal jugular central line has its tip in superior vena cava. No pneumothor ax is noted. Scattered bibasilar patchiness is noted consistent with atelectasis/or infiltrate. The h eart is stable. CONCLUSION: 1. Endotracheal tube has its tip 3 cm above the jarocho in good position. 2. Bibasilar patchiness is unchanged. Electronically signed by: Mayank Zurita MD Board Certified Radiologist 11/02/2018 8:58 AM EST
[2018-11-02] MEDS ORDERED: Famotidine PF Inj 20 MG/2 ML Vial IV.PUSH SCH (09:00)
[2018-11-02] MEDS ORDERED: predniSONE 10 MG Tablet PO SCH (09:00)
[2018-11-02] MEDS ORDERED: Famotidine 20 MG Tablet PO SCH (09:00)
[2018-11-02] MEDS ORDERED: Sodium Bicarbonate 8.4% Inj 150 MEQ in Sodium Chloride 0.45 % Inj 850 ML IV.CONT SCH (09:00)
[2018-11-02] MEDS ORDERED: Allopurinol 100 MG Tablet PO SCH (09:00)
[2018-11-02 09:02] LABS: Hematocrit 26.5 % (35.0-46.0); Hemoglobin 8.9 gm/dL (11.6-15.3); Mean Corpuscular HGB Conc 33.7 % (32.0-36.0); Mean Corpuscular Hemoglobin 31.5 pg (27.0-34.0); Mean Corpuscular Volume 93.4 fL (80.0-100.0); Mean Platelet Volume 8.6 fL (7.0-11.0); Platelet Count 54 th/mm3 (150-450); Red Blood Count 2.84 mil/mm3 (4.00-5.30); Red Cell Distribution Width 17.8 % (11.6-17.2); White Blood Count 0.2 th/mm3 (4.0-11.0)
[2018-11-02 09:09] LABS: Eosinophils 4 % (0-4); Lymphocytes 16 % (9-44); Metamyelocytes 4 % (0-1); Monocytes 20 % (0-8); Tallied Nucleated RBC 39 (0-0)
[2018-11-02 09:11] LABS: Albumin 1.2 g/dL (3.4-5.0); Calcium 6.8 mg/dL (8.5-10.1); Magnesium 2.1 mg/dL (1.5-2.5)
[2018-11-02 09:12] LABS: Platelet Morphology Normal (Normal)
[2018-11-02 09:13] LABS: Dimorphic RBC Present; Howell-Jolly Bodies Present; Ovalocytes 1+
[2018-11-02 09:14] LABS: Burr Cells 1+
[2018-11-02 09:15] LABS: Dohle Bodies Present; Toxic Granulation 1+
[2018-11-02 09:20] LABS: Phosphorus 4.9 mg/dL (2.5-4.9); Total Protein 3.5 g/dL (6.4-8.2); Troponin I 0.35 ng/mL (0.02-0.05)
[2018-11-02] MEDS ORDERED: Vancomycin Consult Pharmacy OTHER PRN (09:25)
[2018-11-02 09:50] LABS: Eosinophils 6 % (0-4); Lymphocytes 12 % (9-44); Metamyelocytes 8 % (0-1); Monocytes 12 % (0-8); Myelocytes 4 % (0-0); Tallied Nucleated RBC 85 (0-0)
[2018-11-02 09:53] LABS: Dohle Bodies Present; Howell-Jolly Bodies Present; Platelet Morphology Normal (Normal); Toxic Granulation 1+; Toxic Vacuolation Present
[2018-11-02 09:54] LABS: Dimorphic RBC Present
[2018-11-02] MEDS ORDERED: Sodium Bicarbonate 8.4% Inj 150 MEQ in Dextrose 5% in Water Inj 850 ML IV.CONT SCH ×4 (10:00→12:00)
[2018-11-02] MEDS ORDERED: Azithromycin Inj 500 MG in Sodium Chlor 0.9% Inj 250 ML IV.SIG ONE (10:00)
--- NOTE | 2018-11-02 10:10 | P.CONID ---
History of Present Illness Service: Infectious Disease Consult date: 11/02/18 Requesting Physician: Marlen Nassar Reason for Consult: Evaluation and Mment of Severe Sepsis with Septic Shock. Primary Care Provider: Khanh Wallace MD Chief Complaint: Syncope with hip pain History of Present Illness: Most of the history was obtained from review of medical records. Patient intubated. 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 Patient was brought into the ED by EMS after a syncopal episode ? after [place] related drowsiness. She got up and went to the bathroom and reportedly was lightheaded and had a syncopal episode. She denied any chest pains, trouble breathing, or other symptoms. On admission patient was complaining of left hip pain. An x-ray of the hip was done on 11/01 which was concerning for inferior femoral neck impacted fracture. Hemoglobin was 6.8 but there was no blood per rectum or black stools. Per review of records it appears that patient has reported to others that there was history of fatigue as well as a hard time walking for the past 1 month. Orthopedics was consulted and an MRI was ordered initially but does not seem to have been done. Patient was reportedly being worked up for cardiac clearance for orthopedic procedure. Initial workup also included a chest x-ray on November 01, 2018 which showed no infiltrate or any displaced rib fractures. CT of the head was done which was negative. Patient reportedly went into new onset atrial fibrillation. Patient has been progressively more leukopenic during her admission of note patient is on chronic immunosuppressants for her minimal-change disease related nephrotic syndrome. Reportedly patient is followed by [facility]. Patient became hypotensive with blood pressure in the 70s and therefore was transferred to the ICU. Progressively patient became more lethargic as well as hypotensive and ended up being intubated on a ventilator as well as needing central line placement. At the time of my evaluation patient is in the ICU currently on vasopressors, remains intubated and sedated. Urine output is okay. There is no reported diarrhea. Currently neutropenic precautions. 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 Rare social alcohol use. Denies illicit drug use Review of Systems All other systems reviewed negative except as stated in HPI COUNTS INCLUDE 234 BEDS AT THE [facility] - History History Provided By: Medical Record - Medical History Medical History: Medical History (Last Reviewed 11/02/18 @ 07:51 by Eben Zelaya) Medical history unknown Surgical history unknown - Family History Family History: Family History (Last Reviewed 11/02/18 @ 07:51 by Eben Zelaya) Other Family history non-contributory - Tobacco History Second Hand Smoke Exposure: No Smoking Status: Never smoker - Alcohol History How Often Do You Have a Drink Containing Alcohol: Never - Substance Use History Substance History: No History of Abuse - Travel History Recent Travel in the [place] Within the Last 8 Weeks: No Recent Travel Out of the Country Within the Last 8 Weeks: No - Immunization History Tetanus Immunization: Unsure Medications and Allergies Active Medications: Active Medications Hydrocodone Bitart/Acetaminophen ([place] 7.5/325) 1 tab PO Q4H PRN PRN Reason: PAIN SCALE 1 TO 10 Last Admin: 11/01/18 17:41 Dose: 1 tab Allopurinol (Zyloprim) 100 mg PO DAILY [facility] Chlorhexidine Gluconate (Chlorhexidine 2% Cloth) 3 pack TOPICAL DAILY@0400 PRN PRN Reason: Extra cloth needed Stop: 11/07/18 03:59 Chlorhexidine Gluconate (Chlorhexidine 2% Cloth) 3 pack TOPICAL DAILY@0400 [facility] Stop: 11/07/18 03:59 Last Admin: 11/02/18 03:40 Dose: Not Given Chlorhexidine Gluconate (Peridex 0.12% Oral Kit) 15 ml OROPHARYNG BID@0800, 2000 [facility] Last Admin: 11/02/18 09:24 Dose: 15 ml Dextrose (D50w Vial) 50 ml IV.PUSH UNSCH PRN PRN Reason: PER HYPOGLYCEMIA PROTOCOL Famotidine (Pepcid Pf Inj) 10 mg IV.PUSH Q12HR JACOB Hydromorphone HCl (Dilaudid Pf Inj) 0.2 mg IV.PUSH Q4H PRN PRN Reason: BREAKTHROUGH PAIN Diltiazem HCl 125 mg/ Sodium (Chloride) 125 mls @ 5 mls/hr IV.CONT TITRATE PRN ; Protocol PRN Reason: Per Protocol Amiodarone HCl 450 mg/ (Dextrose) 250 mls @ 33.33 mls/hr IV.CONT TITRATE PRN; Protocol PRN Reason: Per Protocol Norepinephrine Bitartrate (Levophed-Dextrose 4 Mg/250 Ml Drip) 4 mg in 250 mls @ 7.5 mls/hr IV.SIG TITRATE PRN; Protocol PRN Reason: Per Protocol Vasopressin 40 unit/ Dextrose 100 mls @ 1.5 mls/hr IV.CONT TITRATE PRN; Protocol PRN Reason: Per Protocol Fentanyl (Fentanyl 10 Mcg/Ml Premix Drip) 2,500 mcg in 250 mls @ 5 mls/hr IV.SIG TITRATE PRN; Protocol PRN Reason: Per Protocol Last Admin: 11/02/18 09:08 Dose: 50 mcg/hr, 5 mls/hr Azithromycin 500 mg/ Sodium (Chloride) 250 mls @ 250 mls/hr IV.SIG ONCE ONE Stop: 11/02/18 10:59 Cefepime HCl 2,000 mg/ Sodium (Chloride) 100 mls @ 200 mls/hr IV.SIG Q12H JACOB Epinephrine HCl 8 mg/ Dextrose 250 mls @ 5.62 mls/hr IV.CONT TITRATE PRN; Protocol PRN Reason: Per Protocol Sodium Bicarbonate 150 meq/ (Dextrose) 1,000 mls @ 84 mls/hr IV.CONT .[id number] [facility] Miscellaneous Medication () 1 each OROPHARYNG 0000,0400,1200,1600 [facility] Non-Formulary Medication (Corticotropin [Acthar H.P.]) 80 unit IM Q72H JACOB Ondansetron HCl (Zofran Inj) 4 mg IV.PUSH Q6H PRN PRN Reason: nausea, vomiting Pharmacy Profile Note (Vancomycin Consult Pharmacy) 1 each OTHER UNSCH PRN PRN Reason: Pharmacy to dose Potassium Chloride (K-Dur) 20 meq PO DAILY [facility] Prednisone (Deltasone) 10 mg PO DAILY [facility] Terbutaline Sulfate (Brethine Inj) 1 mg SQ UNSCH PRN PRN Reason: For Extravasation Torsemide (Demadex) 20 mg PO BID [facility] Last Admin: 11/01/18 20:14 Dose: Not Given Allergies Allergy/AdvReac Type Severity Reaction Status Date / Time No Known Allergies Allergy Verified 11/01/18 03:44 Home Medications Medication Instructions Recorded Confirmed Type allopurinol 100 mg PO DAILY 11/01/18 11/01/18 History cholecalciferol (vitamin D3) 5,000 unit PO DAILY 11/01/18 11/01/18 History [Vitamin D3] corticotropin [Acthar H.P.] 80 unit IM Q72H 11/01/18 11/01/18 History famotidine 40 mg PO DAILY 11/01/18 11/01/18 History metolazone 2.5 mg PO DAILY 11/01/18 11/01/18 History nifedipine 30 mg PO DAILY 11/01/18 11/01/18 History nifedipine 60 mg PO QPM 11/01/18 11/01/18 History potassium chloride 20 meq PO BID 11/01/18 11/01/18 History prednisone 10 mg PO DAILY 11/01/18 11/01/18 History sulfamethoxazole-trimethoprim 1 tab PO 3XW 11/01/18 11/01/18 History torsemide 20 mg PO BID 11/01/18 11/01/18 History Exam Vital signs: Vital Signs 11/01/18 11:00 11/01/18 12:00 11/01/18 13:00 Temperature 97.7 F Pulse Rate 104 H 96 H 100 H Respiratory Rate 18 Blood Pressure 112/53 L Pulse Oximetry 100 11/01/18 14:00 11/01/18 15:00 11/01/18 16:00 Temperature 97.9 F Pulse Rate 108 H 106 H 116 H Respiratory Rate 18 Blood Pressure 100/65 Pulse Oximetry 95 11/01/18 20:00 11/01/18 20:20 11/01/18 21:00 Temperature 98.9 F Pulse Rate 100 H 98 H 111 H Respiratory Rate 22 Blood Pressure 110/54 L 84/50 L Pulse Oximetry 97 11/01/18 23:00 11/01/18 23:26 11/01/18 23:51 Temperature 98.8 F Pulse Rate 120 H 108 H Respiratory Rate 20 22 Blood Pressure 80/51 L 91/51 L Pulse Oximetry 97 11/02/18 00:00 11/02/18 00:05 11/02/18 01:00 Temperature 98.3 F Pulse Rate 108 H 130 H 110 H Respiratory Rate 22 Blood Pressure 75/45 L 81/50 L Pulse Oximetry 96 11/02/18 01:53 11/02/18 02:00 11/02/18 03:00 Temperature Pulse Rate 97 H 110 H Respiratory Rate Blood Pressure 86/55 L 133/73 Pulse Oximetry 94 L 11/02/18 04:00 11/02/18 05:00 11/02/18 06:00 Temperature 98.5 F Pulse Rate 98 H 100 H 97 H Respiratory Rate Blood Pressure 71/38 L 111/58 L 105/59 L Pulse Oximetry 11/02/18 06:53 11/02/18 06:55 11/02/18 06:58 Temperature Pulse Rate 97 H 98 H Respiratory Rate Blood Pressure 113/55 L 105/53 L 103/57 L Pulse Oximetry 90 L 90 L 11/02/18 07:00 11/02/18 07:03 11/02/18 07:05 Temperature Pulse Rate 98 H 96 H 96 H Respiratory Rate Blood Pressure 105/59 L 108/56 L 89/54 L Pulse Oximetry 93 L 93 L 93 L 11/02/18 07:08 11/02/18 07:10 11/02/18 07:13 Temperature Pulse Rate 96 H 96 H 97 H Respiratory Rate Blood Pressure 96/54 L 94/53 L 102/52 L Pulse Oximetry 93 L 94 L 93 L 11/02/18 07:15 11/02/18 07:18 11/02/18 07:20 Temperature Pulse Rate 94 H 94 H 94 H Respiratory Rate 31 H 31 H 31 H Blood Pressure 96/50 L 93/53 L 89/54 L Pulse Oximetry 93 L 92 L 92 L 11/02/18 07:23 11/02/18 07:25 11/02/18 07:28 Temperature Pulse Rate 93 H 93 H 100 H Respiratory Rate 30 H 30 H 31 H Blood Pressure 86/44 L 88/49 L 92/49 L Pulse Oximetry 92 L 90 L 86 L 11/02/18 07:31 11/02/18 07:33 11/02/18 07:35 Temperature Pulse Rate 94 H 91 H 91 H Respiratory Rate 28 H 30 H 28 H Blood Pressure 80/41 L 71/36 L 59/26 L Pulse Oximetry 93 L 86 L 81 L 11/02/18 07:37 11/02/18 07:40 11/02/18 07:43 Temperature Pulse Rate 91 H 91 H 92 H Respiratory Rate 45 H 34 H 23 Blood Pressure 59/36 L 113/66 148/63 H Pulse Oximetry 80 L 75 L 71 L 11/02/18 08:00 11/02/18 08:01 11/02/18 08:05 Temperature Pulse Rate 101 H 104 H 107 H Respiratory Rate 26 H 26 H 28 H Blood Pressure 86/37 L 86/39 L Pulse Oximetry 58 L 71 L 67 L 11/02/18 08:17 11/02/18 08:20 11/02/18 08:21 Temperature Pulse Rate 93 H Respiratory Rate 17 14 Blood Pressure 88/38 L 128/58 L Pulse Oximetry 99 Intake & Output 11/01/18 11/02/18 11/02/18 18:59 06:59 18:59 Intake Total 690 / 690 100 / 100 1720 / 1720 Balance 690 / 690 100 / 100 1720 / 1720 Weight 95 kg Intake: IV 290 / 290 100 / 100 1720 / 1720 [place] 5% Inj 500 ML @ 250 mls/ 500 / 500 hr IV.SIG STAT STA Rx#:[id number] Calcium Gluconate Inj 2 GM In 120 / 120 NS Inj 100 ML @ 120 mls/hr IV. SIG ONCE ONE Rx#:[id number] Magnesium Sulfate Inj 2 GM In 100 / 100 NS Inj 96 ML @ 50 mls/hr IV.SIG ONCE ONE Rx#:[id number] KCl 20 mEq Premix Inj 20 meq In 200 / 200 100 / 100 100 ml @ 50 mls/hr IV.SIG Q2H JACOB Rx#:[id number] NS Inj 1,000 ML @ 1000 mls/hr 1000 / 1000 IV.SIG BOLUS JACOB Rx#:[id number] NS Inj 250 ML @ 15 mls/hr IV. 90 / 90 SIG ONCE JACOB Rx#:[id number] Oral 0 / 0 0 / 0 Intake (Blood Product) Amt 400 / 400 Rbc As-3 Leukoreduced Unit 400 / 400 [id number] Rbc As-3 Leukoreduced Unit 0 / 0 [id number] Other: # Incontinent Voids 3 Date of Last Bowel Movement 11/02/18 # Bowel Movements 3 Narrative: GENERAL: Sedated, on the vent, NAD SKIN: Generalized bruising all over the body. Generalized anasarca noted HEAD: Atraumatic. Normocephalic. No temporal or scalp tenderness. EYES: Pupils equal round and reactive. Scleral icterus. No injection or drainage. No petechia ENT: Orally intubated NECK: Trachea midline. Supple, nontender, no meningeal signs. CARDIOVASCULAR: HS audible. RESPIRATORY: Air entry equal bilaterally. Clear to auscultation bilaterally. GASTROINTESTINAL: Abdomen soft,NT, obese. MUSCULOSKELETAL: Extremities without clubbing, cyanosis. NEUROLOGICAL: Sedated Psych could not be assessed IV line sites ok. Results - Labs CBC & Chem 7: 11/02/18 08:32 11/02/18 08:32 Labs: Laboratory Results - last 24 hr 11/01/18 11/01/18 11/01/18 14:28 14:28 14:28 WBC 1.4 L RBC 3.52 L Hgb 11.2 L D Hct 32.4 L MCV 92.2 MCH 31.8 MCHC 34.5 RDW 17.8 H Plt Count 160 MPV 9.0 Prelim Diff (Auto) Slide review pending Neut % (Auto) 87.0 H Lymph % (Auto) 6.9 L [place] % (Auto) 3.0 Eos % (Auto) 2.5 Baso % (Auto) 0.6 Neut # (Auto) 1.2 L Lymph # (Auto) 0.1 L [place] # (Auto) 0.0 Eos # (Auto) 0.0 Baso # (Auto) 0.0 WBC Differential Manual diff final Seg Neuts % (Manual) 15 L Band Neuts % (Manual) 55 H Lymphocytes % (Manual) 3 L Monocytes % (Manual) 1 Eosinophils % (Manual) 1 Metamyelocytes % (Man) 20 H Myelocytes % (Man) 3 H Promyelocytes % (Man) 2 H Abs Neuts (Manual) 1.3 L Nucleated RBCs/100 WBC 12 H Differential Comment . Toxic Granulation Toxic Vacuolation Present H Dohle Bodies Platelet Estimate Platelet Morphology Normal RBC Morphology Not Reportable Dimorphic RBCs Ovalocytes [place] Bodies Hamilton Cells Keratocytes Puncture Site Patient Temperature O2 Saturation ABG pH ABG pCO2 ABG pO2 ABG HCO3 ABG O2 Content ABG Base Excess ABG Methemoglobin Hemoglobin Carboxyhemoglobin O2 Delivery Device Vent Setting Inspired O2 Critical Value Sodium 141 Potassium 3.1 L D Chloride 106 Carbon Dioxide 23.8 Anion Gap 11 BUN 75 H Creatinine 2.76 H Estimated GFR 17 L POC Glucose Random Glucose 99 Lactic Acid Calcium 7.2 L* Calcium Adj for Albumin 9.4 Phosphorus Magnesium Iron 15 L 15 L TIBC 172 L % Saturation 8.7 L Ferritin 207 Total Bilirubin AST ALT Alkaline Phosphatase Total Creatine Kinase CK-MB (CK-2) Troponin I B-Natriuretic Peptide Total Protein Albumin 1.3 L Prealbumin Vitamin B12 1035 H Nasal Screen MRSA (PCR) 11/02/18 11/02/18 11/02/18 01:06 01:06 01:06 WBC 0.7 L RBC 3.42 L Hgb 10.6 L Hct 31.0 L MCV 90.9 MCH 30.9 MCHC 34.0 RDW 17.4 H Plt Count 92 L D MPV 8.0 Prelim Diff (Auto) Slide review pending Neut % (Auto) 87.8 H Lymph % (Auto) 5.1 L [place] % (Auto) 1.7 Eos % (Auto) 3.8 Baso % (Auto) 1.6 Neut # (Auto) 0.6 L Lymph # (Auto) 0.0 L [place] # (Auto) 0.0 Eos # (Auto) 0.0 Baso # (Auto) 0.0 WBC Differential Manual diff final Seg Neuts % (Manual) 24 Band Neuts % (Manual) 36 H Lymphocytes % (Manual) 2 L Monocytes % (Manual) 2 Eosinophils % (Manual) 6 H Metamyelocytes % (Man) 20 H Myelocytes % (Man) 10 H Promyelocytes % (Man) Abs Neuts (Manual) 0.6 L Nucleated RBCs/100 WBC 38 H Differential Comment . Toxic Granulation Toxic Vacuolation Present H Dohle Bodies Platelet Estimate Normal Platelet Morphology RBC Morphology Dimorphic RBCs Ovalocytes [place] Bodies Hamilton Cells Keratocytes Puncture Site Patient Temperature O2 Saturation ABG pH ABG pCO2 ABG pO2 ABG HCO3 ABG O2 Content ABG Base Excess ABG Methemoglobin Hemoglobin Carboxyhemoglobin O2 Delivery Device Vent Setting Inspired O2 Critical Value Sodium 143 Potassium 3.0 L Chloride 109 H Carbon Dioxide 21.6 Anion Gap 12 BUN 79 H Creatinine 2.99 H Estimated GFR 15 L POC Glucose Random Glucose 42 L* Lactic Acid 3.6 H Calcium 6.8 L* Calcium Adj for Albumin 9.3 Phosphorus 4.8 Magnesium 1.9 Iron TIBC % Saturation Ferritin Total Bilirubin AST ALT Alkaline Phosphatase Total Creatine Kinase 108 CK-MB (CK-2) 1.7 Troponin I 0.12 H B-Natriuretic Peptide Total Protein Albumin 0.9 L Prealbumin 14 L Vitamin B12 Nasal Screen MRSA (PCR) 11/02/18 11/02/18 11/02/18 01:06 01:08 02:38 WBC RBC Hgb Hct MCV MCH MCHC RDW Plt Count MPV Prelim Diff (Auto) Neut % (Auto) Lymph % (Auto) [place] % (Auto) Eos % (Auto) Baso % (Auto) Neut # (Auto) Lymph # (Auto) [place] # (Auto) Eos # (Auto) Baso # (Auto) WBC Differential Seg Neuts % (Manual) Band Neuts % (Manual) Lymphocytes % (Manual) Monocytes % (Manual) Eosinophils % (Manual) Metamyelocytes % (Man) Myelocytes % (Man) Promyelocytes % (Man) Abs Neuts (Manual) Nucleated RBCs/100 WBC Differential Comment Toxic Granulation Toxic Vacuolation Dohle Bodies Platelet Estimate Platelet Morphology RBC Morphology Dimorphic RBCs Ovalocytes [place] Bodies Jody Cells Keratocytes Puncture Site Patient Temperature O2 Saturation ABG pH ABG pCO2 ABG pO2 ABG HCO3 ABG O2 Content ABG Base Excess ABG Methemoglobin Hemoglobin Carboxyhemoglobin O2 Delivery Device Vent Setting Inspired O2 Critical Value Sodium Potassium Chloride Carbon Dioxide Anion Gap BUN Creatinine Estimated GFR POC Glucose 65 L Random Glucose Lactic Acid Calcium Calcium Adj for Albumin Phosphorus Magnesium Iron TIBC % Saturation Ferritin Total Bilirubin AST ALT Alkaline Phosphatase Total Creatine Kinase CK-MB (CK-2) Troponin I B-Natriuretic Peptide 1623 H Total Protein Albumin Prealbumin Vitamin B12 Nasal Screen MRSA (PCR) Not detected 11/02/18 11/02/18 11/02/18 03:03 03:57 04:43 WBC 0.2 L D RBC 3.17 L Hgb 9.9 L Hct 29.3 L MCV 92.3 MCH 31.2 MCHC 33.9 RDW 17.4 H Plt Count 73 L MPV 8.6 Prelim Diff (Auto) Manual diff required Neut % (Auto) Lymph % (Auto) [place] % (Auto) Eos % (Auto) Baso % (Auto) Neut # (Auto) Lymph # (Auto) [place] # (Auto) Eos # (Auto) Baso # (Auto) WBC Differential Manual diff final Seg Neuts % (Manual) 52 Band Neuts % (Manual) 4 Lymphocytes % (Manual) 16 Monocytes % (Manual) 20 H Eosinophils % (Manual) 4 Metamyelocytes % (Man) 4 H Myelocytes % (Man) Promyelocytes % (Man) Abs Neuts (Manual) 0.1 L* Nucleated RBCs/100 WBC 156 H Differential Comment . Toxic Granulation 1+ H Toxic Vacuolation Dohle Bodies Present H Platelet Estimate Low L Platelet Morphology Normal RBC Morphology Dimorphic RBCs Present H Ovalocytes 1+ H [place] Bodies Present H Jody Cells 1+ H Keratocytes Puncture Site Patient Temperature O2 Saturation ABG pH ABG pCO2 ABG pO2 ABG HCO3 ABG O2 Content ABG Base Excess ABG Methemoglobin Hemoglobin Carboxyhemoglobin O2 Delivery Device Vent Setting Inspired O2 Critical Value Sodium Potassium Chloride Carbon Dioxide Anion Gap BUN Creatinine Estimated GFR POC Glucose 81 78 Random Glucose Lactic Acid Calcium Calcium Adj for Albumin Phosphorus Magnesium Iron TIBC % Saturation Ferritin Total Bilirubin AST ALT Alkaline Phosphatase Total Creatine Kinase CK-MB (CK-2) Troponin I B-Natriuretic Peptide Total Protein Albumin Prealbumin Vitamin B12 Nasal Screen MRSA (PCR) 11/02/18 11/02/18 11/02/18 04:43 04:43 08:26 WBC RBC Hgb Hct MCV MCH MCHC RDW Plt Count MPV Prelim Diff (Auto) Neut % (Auto) Lymph % (Auto) [place] % (Auto) Eos % (Auto) Baso % (Auto) Neut # (Auto) Lymph # (Auto) [place] # (Auto) Eos # (Auto) Baso # (Auto) WBC Differential Seg Neuts % (Manual) Band Neuts % (Manual) Lymphocytes % (Manual) Monocytes % (Manual) Eosinophils % (Manual) Metamyelocytes % (Man) Myelocytes % (Man) Promyelocytes % (Man) Abs Neuts (Manual) Nucleated RBCs/100 WBC Differential Comment Toxic Granulation Toxic Vacuolation Dohle Bodies Platelet Estimate Platelet Morphology RBC Morphology Dimorphic RBCs Ovalocytes [place] Bodies Hamilton Cells Keratocytes Puncture Site Art line Patient Temperature 98.6 O2 Saturation 97 ABG pH 7.20 L* ABG pCO2 43 H ABG pO2 379 H ABG HCO3 16 L* ABG O2 Content 13.4 ABG Base Excess -10.4 L ABG Methemoglobin 1.9 Hemoglobin 9.1 L Carboxyhemoglobin 0.5 O2 Delivery Device Ventilator Vent Setting Prvc/ac Inspired O2 100 Critical Value Yes Sodium 144 Potassium 3.7 Chloride 109 H Carbon Dioxide 18.2 L Anion Gap 17 H BUN 79 H Creatinine 3.09 H Estimated GFR 15 L POC Glucose Random Glucose 72 L Lactic Acid 5.6 H* Calcium 7.1 L* Calcium Adj for Albumin 9.1 Phosphorus 4.8 Magnesium 2.0 Iron TIBC % Saturation Ferritin Total Bilirubin 0.5 AST 57 H ALT 63 H Alkaline Phosphatase 334 H Total Creatine Kinase CK-MB (CK-2) Troponin I B-Natriuretic Peptide Total Protein 4.0 L Albumin 1.5 L D Prealbumin Vitamin B12 Nasal Screen MRSA (PCR) 11/02/18 11/02/18 11/02/18 08:32 08:32 08:32 WBC 0.2 L RBC 2.84 L Hgb 8.9 L Hct 26.5 L MCV 93.4 MCH 31.5 MCHC 33.7 RDW 17.8 H Plt Count 54 L MPV 8.6 Prelim Diff (Auto) Manual diff required Neut % (Auto) Lymph % (Auto) [place] % (Auto) Eos % (Auto) Baso % (Auto) Neut # (Auto) Lymph # (Auto) [place] # (Auto) Eos # (Auto) Baso # (Auto) WBC Differential Manual diff final Seg Neuts % (Manual) 54 Band Neuts % (Manual) 4 Lymphocytes % (Manual) 12 Monocytes % (Manual) 12 H Eosinophils % (Manual) 6 H Metamyelocytes % (Man) 8 H Myelocytes % (Man) 4 H Promyelocytes % (Man) Abs Neuts (Manual) 0.1 L* Nucleated RBCs/100 WBC 170 H Differential Comment . Toxic Granulation 1+ H Toxic Vacuolation Present H Dohle Bodies Present H Platelet Estimate Low L Platelet Morphology Normal RBC Morphology Dimorphic RBCs Present H Ovalocytes [place] Bodies Present H [place] Cells Keratocytes Occ H Puncture Site Patient Temperature O2 Saturation ABG pH ABG pCO2 ABG pO2 ABG HCO3 ABG O2 Content ABG Base Excess ABG Methemoglobin Hemoglobin Carboxyhemoglobin O2 Delivery Device Vent Setting Inspired O2 Critical Value Sodium 143 Potassium 4.0 Chloride 111 H Carbon Dioxide 17.0 L Anion Gap 15 BUN 79 H Creatinine 3.05 H Estimated GFR 15 L POC Glucose Random Glucose 64 L Lactic Acid 6.2 H* Calcium 6.8 L* Calcium Adj for Albumin 9.0 Phosphorus 4.9 Magnesium 2.1 Iron TIBC % Saturation Ferritin Total Bilirubin 0.4 AST 49 H ALT 52 Alkaline Phosphatase 287 H Total Creatine Kinase CK-MB (CK-2) Troponin I 0.35 H D B-Natriuretic Peptide Total Protein 3.5 L Albumin 1.2 L Prealbumin Vitamin B12 Nasal Screen MRSA (PCR) 11/02/18 11/02/18 11/02/18 08:32 08:32 09:09 WBC RBC Hgb Hct MCV MCH MCHC RDW Plt Count MPV Prelim Diff (Auto) Neut % (Auto) Lymph % (Auto) [place] % (Auto) Eos % (Auto) Baso % (Auto) Neut # (Auto) Lymph # (Auto) [place] # (Auto) Eos # (Auto) Baso # (Auto) WBC Differential Seg Neuts % (Manual) Band Neuts % (Manual) Lymphocytes % (Manual) Monocytes % (Manual) Eosinophils % (Manual) Metamyelocytes % (Man) Myelocytes % (Man) Promyelocytes % (Man) Abs Neuts (Manual) Nucleated RBCs/100 WBC Differential Comment Toxic Granulation Toxic Vacuolation Dohle Bodies Platelet Estimate Platelet Morphology RBC Morphology Dimorphic RBCs Ovalocytes [place] Bodies Hamilton Cells Keratocytes Puncture Site Patient Temperature O2 Saturation ABG pH ABG pCO2 ABG pO2 ABG HCO3 ABG O2 Content ABG Base Excess ABG Methemoglobin Hemoglobin Carboxyhemoglobin O2 Delivery Device Vent Setting Inspired O2 Critical Value Sodium Potassium Chloride Carbon Dioxide Anion Gap BUN Creatinine Estimated GFR POC Glucose 39 L* Random Glucose Lactic Acid Calcium Calcium Adj for Albumin Phosphorus Magnesium Iron TIBC % Saturation Ferritin Total Bilirubin AST ALT Alkaline Phosphatase Total Creatine Kinase 143 CK-MB (CK-2) Troponin I B-Natriuretic Peptide 3295 H Total Protein Albumin Prealbumin Vitamin B12 Nasal Screen MRSA (PCR) 11/02/18 09:45 WBC RBC Hgb Hct MCV MCH MCHC RDW Plt Count MPV Prelim Diff (Auto) Neut % (Auto) Lymph % (Auto) [place] % (Auto) Eos % (Auto) Baso % (Auto) Neut # (Auto) Lymph # (Auto) [place] # (Auto) Eos # (Auto) Baso # (Auto) WBC Differential Seg Neuts % (Manual) Band Neuts % (Manual) Lymphocytes % (Manual) Monocytes % (Manual) Eosinophils % (Manual) Metamyelocytes % (Man) Myelocytes % (Man) Promyelocytes % (Man) Abs Neuts (Manual) Nucleated RBCs/100 WBC Differential Comment Toxic Granulation Toxic Vacuolation Dohle Bodies Platelet Estimate Platelet Morphology RBC Morphology Dimorphic RBCs Ovalocytes [place] Bodies Hamilton Cells Keratocytes Puncture Site Patient Temperature O2 Saturation ABG pH ABG pCO2 ABG pO2 ABG HCO3 ABG O2 Content ABG Base Excess ABG Methemoglobin Hemoglobin Carboxyhemoglobin O2 Delivery Device Vent Setting Inspired O2 Critical Value Sodium Potassium Chloride Carbon Dioxide Anion Gap BUN Creatinine Estimated GFR POC Glucose 152 H Random Glucose Lactic Acid Calcium Calcium Adj for Albumin Phosphorus Magnesium Iron TIBC % Saturation Ferritin Total Bilirubin AST ALT Alkaline Phosphatase Total Creatine Kinase CK-MB (CK-2) Troponin I B-Natriuretic Peptide Total Protein Albumin Prealbumin Vitamin B12 Nasal Screen MRSA (PCR) - Imaging Impressions Hip CT 11/01/18 00:00 CONCLUSION: 1. Very subtle lucency involving the left greater trochanter which likely represents nondisplaced fracture. 2. Diffuse anasarca. 3. Uncomplicated colonic diverticulosis. 4. Degenerative changes are noted involving the lower lumbar spine. Abdomen/Bladder Ultrasound 11/01/18 16:12 CONCLUSION: 1. Significantly limited exam due to patient's inability to tolerate positioning. 2. No sonographic evidence for gross obstructive uropathy. 3. Echogenic kidneys consistent with medical renal disease. Hip MRI 11/01/18 19:37 CONCLUSION: 1. No acute fracture or marrow edema involving the left hip. 2. Tiny left hip joint effusion. 3. Diffuse anasarca. 4. Uncomplicated colonic diverticulosis. 5. Degenerative changes and scoliosis of the lower lumbar spine. Abdomen/Pelvis CT 11/02/18 05:37 CONCLUSION: 1. No evidence for bowel obstruction, pneumatosis or free air as questioned. 2. Trace pleural effusions and dense airspace consolidation at the lung bases bilaterally, left greater than right. Cannot exclude pneumonia or aspiration in the appropriate clinical setting. 3. There is a small appendicolith with normal-appearing appendix. 4. Diffuse abdominal wall anasarca similar to prior exam. 5. Sigmoid diverticulosis without definitive evidence for diverticulitis. 6. Stable intra and extra hepatic bile duct prominence extending to the level of the ampulla of uncertain etiology. This is unchanged from remote 2015 CT exam. Chest X-Ray 11/02/18 07:43 CONCLUSION: 1. No pneumothorax status post placement of right internal jugular central line which has tip in superior vena cava. 2. Bibasilar patchiness consistent with atelectasis and/or infiltrate. 3. Cardiomegaly. Chest X-Ray 11/02/18 08:26 CONCLUSION: 1. Endotracheal tube has its tip 3 cm above the jarocho in good position. 2. Bibasilar patchiness is unchanged. Assessment and Plan - Plan Severe sepsis with septic shock Pneumonia aspiration, healthcare associated pneumonia Acute respiratory failure on vent Acute metabolic encephalopathy likely secondary to sepsis Pancytopenia: Sepsis, immune suppressing agents Minimal change disease with nephrotic syndrome, generalized anasarca. ? Possible component of acute renal failure Recommendations Discussed antibiotic recommendations and workup with Dr. Nassar. Start cefepime 2 g IV every 12 hrs. Start Teflaro IV (MRSA coverage, cannot give Vanco IV, or Zyvox IV, Dapto will not cover lungs) Start Micafungin IV (immunocompromised host with likely bowel edema secondary to generalized anasarca) Check morris cultures Check Stool occult blood. If positive consider GI consult. Patient was on Bactrim for PCP prophylaxis. If resp issues continue may need a bronchoscopy. If diarrhea check stool for Cdiff. Obtain medical records from [facility]. follow cultures follow clinical course. med RN Med Call No family in room. Critically ill patient time in excess of 80 mins total. med LANDON,RN. AIDA reviewed, dosing adjusted.
--- NOTE | 2018-11-02 10:45 | P.PNCC ---
Subjective Subjective Remarks/Hospital Course: 11/02: The patient was noted to be hypotensive and writhing in pain complaints of leg pain early this a.m.. Has been at baseline consent obtained for emergent placement of central line, with implementation of vasopressors to include norepinephrine and vasopressin. Patient's blood pressure improved somewhat however the patient became nonresponsive, with hypoxia and was emergently intubated. The possibility of intubation have been discussed with the patient's during central line placement. The patient was noted to be neutropenic upon review of labs, sepsis workup initiated, prophylactic antibiotics have been initiated. Hemeoncology and ID have been consulted. Lactic acid continues to rise. corticotrophin 80 units IM every 72 hours for minimal change disease however, unknown when last dose was given. 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 Nephrology following. Abdomen abdominal ultrasound last evening was a limited study due to patient motion factor. CT of the abdomen and pelvis was obtained. Repeat abdominal ultrasound pending this a.m.. Objective Vital Signs / I&O: Vital Signs 11/01/18 11:00 11/01/18 12:00 11/01/18 13:00 Temperature 97.7 F Pulse Rate 104 H 96 H 100 H Respiratory Rate 18 Blood Pressure 112/53 L Pulse Oximetry 100 11/01/18 14:00 11/01/18 15:00 11/01/18 16:00 Temperature 97.9 F Pulse Rate 108 H 106 H 116 H Respiratory Rate 18 Blood Pressure 100/65 Pulse Oximetry 95 11/01/18 20:00 11/01/18 20:20 11/01/18 21:00 Temperature 98.9 F Pulse Rate 100 H 98 H 111 H Respiratory Rate 22 Blood Pressure 110/54 L 84/50 L Pulse Oximetry 97 11/01/18 23:00 11/01/18 23:26 11/01/18 23:51 Temperature 98.8 F Pulse Rate 120 H 108 H Respiratory Rate 20 22 Blood Pressure 80/51 L 91/51 L Pulse Oximetry 97 11/02/18 00:00 11/02/18 00:05 11/02/18 01:00 Temperature 98.3 F Pulse Rate 108 H 130 H 110 H Respiratory Rate 22 Blood Pressure 75/45 L 81/50 L Pulse Oximetry 96 11/02/18 01:53 11/02/18 02:00 11/02/18 03:00 Temperature Pulse Rate 97 H 110 H Respiratory Rate Blood Pressure 86/55 L 133/73 Pulse Oximetry 94 L 11/02/18 04:00 11/02/18 05:00 11/02/18 06:00 Temperature 98.5 F Pulse Rate 98 H 100 H 97 H Respiratory Rate Blood Pressure 71/38 L 111/58 L 105/59 L Pulse Oximetry 11/02/18 06:53 11/02/18 06:55 11/02/18 06:58 Temperature Pulse Rate 97 H 98 H Respiratory Rate Blood Pressure 113/55 L 105/53 L 103/57 L Pulse Oximetry 90 L 90 L 11/02/18 07:00 11/02/18 07:03 11/02/18 07:05 Temperature Pulse Rate 98 H 96 H 96 H Respiratory Rate Blood Pressure 105/59 L 108/56 L 89/54 L Pulse Oximetry 93 L 93 L 93 L 11/02/18 07:08 11/02/18 07:10 11/02/18 07:13 Temperature Pulse Rate 96 H 96 H 97 H Respiratory Rate Blood Pressure 96/54 L 94/53 L 102/52 L Pulse Oximetry 93 L 94 L 93 L 11/02/18 07:15 11/02/18 07:18 11/02/18 07:20 Temperature Pulse Rate 94 H 94 H 94 H Respiratory Rate 31 H 31 H 31 H Blood Pressure 96/50 L 93/53 L 89/54 L Pulse Oximetry 93 L 92 L 92 L 11/02/18 07:23 11/02/18 07:25 11/02/18 07:28 Temperature Pulse Rate 93 H 93 H 100 H Respiratory Rate 30 H 30 H 31 H Blood Pressure 86/44 L 88/49 L 92/49 L Pulse Oximetry 92 L 90 L 86 L 11/02/18 07:31 11/02/18 07:33 11/02/18 07:35 Temperature Pulse Rate 94 H 91 H 91 H Respiratory Rate 28 H 30 H 28 H Blood Pressure 80/41 L 71/36 L 59/26 L Pulse Oximetry 93 L 86 L 81 L 11/02/18 07:37 11/02/18 07:40 11/02/18 07:43 Temperature Pulse Rate 91 H 91 H 92 H Respiratory Rate 45 H 34 H 23 Blood Pressure 59/36 L 113/66 148/63 H Pulse Oximetry 80 L 75 L 71 L 11/02/18 08:00 11/02/18 08:01 11/02/18 08:05 Temperature Pulse Rate 101 H 104 H 107 H Respiratory Rate 26 H 26 H 28 H Blood Pressure 86/37 L 86/39 L Pulse Oximetry 58 L 71 L 67 L 11/02/18 08:17 11/02/18 08:20 11/02/18 08:21 Temperature Pulse Rate 93 H Respiratory Rate 17 14 Blood Pressure 88/38 L 128/58 L Pulse Oximetry 99 Intake & Output 11/01/18 11/02/18 11/02/18 18:59 06:59 18:59 Intake Total 690 / 690 100 / 100 1720 / 1720 Balance 690 / 690 100 / 100 1720 / 1720 Weight 95 kg Intake: IV 290 / 290 100 / 100 1720 / 1720 [place]x 5% Inj 500 ML @ 250 mls/ 500 / 500 hr IV.SIG STAT STA Rx#:[id number] Calcium Gluconate Inj 2 GM In 120 / 120 NS Inj 100 ML @ 120 mls/hr IV. SIG ONCE ONE Rx#:[id number] Magnesium Sulfate Inj 2 GM In 100 / 100 NS Inj 96 ML @ 50 mls/hr IV.SIG ONCE ONE Rx#:[id number] KCl 20 mEq Premix Inj 20 meq In 200 / 200 100 / 100 100 ml @ 50 mls/hr IV.SIG Q2H JACOB Rx#:[id number] NS Inj 1,000 ML @ 1000 mls/hr 1000 / 1000 IV.SIG BOLUS JACOB Rx#:[id number] NS Inj 250 ML @ 15 mls/hr IV. 90 / 90 SIG ONCE JACOB Rx#:[id number] Oral 0 / 0 0 / 0 Intake (Blood Product) Amt 400 / 400 Rbc As-3 Leukoreduced Unit 400 / 400 [id number] Rbc As-3 Leukoreduced Unit 0 / 0 [id number] Other: # Incontinent Voids 3 Date of Last Bowel Movement 11/02/18 # Bowel Movements 3 Result Diagrams: 11/02/18 08:32 11/02/18 08:32 Other Results: Laboratory Results WBC 0.2 th/mm3 (4.0-11.0) L 11/02/18 08:32 RBC 2.84 mil/mm3 (4.00-5.30) L 11/02/18 08:32 Hgb 8.9 gm/dL (11.6-15.3) L 11/02/18 08:32 Hct 26.5 % (35.0-46.0) L 11/02/18 08:32 MCV 93.4 fL (80.0-100.0) 11/02/18 08:32 MCH 31.5 pg (27.0-34.0) 11/02/18 08:32 MCHC 33.7 % (32.0-36.0) 11/02/18 08:32 RDW 17.8 % (11.6-17.2) H 11/02/18 08:32 Plt Count 54 th/mm3 (150-450) L 11/02/18 08:32 MPV 8.6 fL (7.0-11.0) 11/02/18 08:32 Prelim Diff (Auto) Manual diff required 11/02/18 08:32 Neut % (Auto) 87.8 % (16.0-70.0) H 11/02/18 01:06 Lymph % (Auto) 5.1 % (9.0-44.0) L 11/02/18 01:06 [place] % (Auto) 1.7 % (0.0-8.0) 11/02/18 01:06 Eos % (Auto) 3.8 % (0.0-4.0) 11/02/18 01:06 Baso % (Auto) 1.6 % (0.0-2.0) 11/02/18 01:06 Neut # (Auto) 0.6 th/mm3 (1.8-7.7) L 11/02/18 01:06 Lymph # (Auto) 0.0 th/mm3 (1.0-4.8) L 11/02/18 01:06 [place] # (Auto) 0.0 th/mm3 (0.0-0.9) 11/02/18 01:06 Eos # (Auto) 0.0 th/mm3 (0.0-0.4) 11/02/18 01:06 Baso # (Auto) 0.0 th/mm3 (0.0-0.2) 11/02/18 01:06 WBC Differential Manual diff final 11/02/18 08:32 Seg Neuts % (Manual) 54 % (16-70) 11/02/18 08:32 Band Neuts % (Manual) 4 % (0-6) 11/02/18 08:32 Lymphocytes % (Manual) 12 % (9-44) 11/02/18 08:32 Monocytes % (Manual) 12 % (0-8) H 11/02/18 08:32 Eosinophils % (Manual) 6 % (0-4) H 11/02/18 08:32 Metamyelocytes % (Man) 8 % (0-1) H 11/02/18 08:32 Myelocytes % (Man) 4 % (0-0) H 11/02/18 08:32 Promyelocytes % (Man) 2 % (0-0) H 11/01/18 14:28 Abs Neuts (Manual) 0.1 th/mm3 (1.8-7.7) L* 11/02/18 08:32 Nucleated RBCs/100 WBC 170 /100 WBC (0-0) H 11/02/18 08:32 Differential Comment . 11/02/18 08:32 Toxic Granulation 1+ (None) H 11/02/18 08:32 Toxic Vacuolation Present (None) H 11/02/18 08:32 Dohle Bodies Present (None) H 11/02/18 08:32 Platelet Estimate Low (Normal) L 11/02/18 08:32 Platelet Morphology Normal (Normal) 11/02/18 08:32 RBC Morphology Not Reportable 11/01/18 14:28 Dimorphic RBCs Present (None) H 11/02/18 08:32 Ovalocytes 1+ (None) H 11/02/18 04:43 [place] Bodies Present (None) H 11/02/18 08:32 Jody Cells 1+ (None) H 11/02/18 04:43 Acanthocytes (Spur) Occ (None) H 11/01/18 03:49 Keratocytes Occ (None) H 11/02/18 08:32 PT 10.5 sec (9.8-11.6) 11/01/18 03:49 INR 1.0 Ratio 11/01/18 03:49 APTT 25.8 sec (23.4-31.7) 11/01/18 03:49 Puncture Site Art line 11/02/18 08:26 Patient Temperature 98.6 11/02/18 08:26 O2 Saturation 97 % (90-100) 11/02/18 08:26 ABG pH 7.20 (7.380-7.420) L* 11/02/18 08:26 ABG pCO2 43 mmHg (38-42) H 11/02/18 08:26 ABG pO2 379 mmHG (61-120) H 11/02/18 08:26 ABG HCO3 16 mmol/L (22-26) L* 11/02/18 08:26 ABG O2 Content 13.4 Vol % (12.0-20.0) 11/02/18 08:26 ABG Base Excess -10.4 mmol/L (-2-2) L 11/02/18 08:26 ABG Methemoglobin 1.9 % (0-2) 11/02/18 08:26 Hemoglobin 9.1 G/DL (12.0-16.0) L 11/02/18 08:26 Carboxyhemoglobin 0.5 % (0-4) 11/02/18 08:26 O2 Delivery Device Ventilator 11/02/18 08:26 Vent Setting Prvc/ac 11/02/18 08:26 Inspired O2 100 % 11/02/18 08:26 Critical Value Yes 11/02/18 08:26 Sodium 143 meq/L (136-145) 11/02/18 08:32 Potassium 4.0 meq/L (3.5-5.1) 11/02/18 08:32 Chloride 111 meq/L (98-107) H 11/02/18 08:32 Carbon Dioxide 17.0 meq/L (21.0-32.0) L 11/02/18 08:32 Anion Gap 15 meq/L (5-15) 11/02/18 08:32 BUN 79 mg/dL (7-18) H 11/02/18 08:32 Creatinine 3.05 mg/dL (0.50-1.00) H 11/02/18 08:32 Estimated GFR 15 mL/min (>89) L 11/02/18 08:32 POC Glucose 152 mg/dl (68-110) H 11/02/18 09:45 Random Glucose 64 mg/dL (74-106) L 11/02/18 08:32 Lactic Acid 6.2 mmol/L (0.4-2.0) H* 11/02/18 08:32 Calcium 6.8 mg/dL (8.5-10.1) L* 11/02/18 08:32 Calcium Adj for Albumin 9.0 mg/dL (8.5-10.1) 11/02/18 08:32 Phosphorus 4.9 mg/dL (2.5-4.9) 11/02/18 08:32 Magnesium 2.1 mg/dL (1.5-2.5) 11/02/18 08:32 Iron 15 mcg/dL (50-170) L 11/01/18 14:28 TIBC 172 mcg/dL (250-450) L 11/01/18 14:28 % Saturation 8.7 % (20-50) L 11/01/18 14:28 Ferritin 207 ng/mL (8-252) 11/01/18 14:28 Total Bilirubin 0.4 mg/dL (0.2-1.0) 11/02/18 08:32 AST 49 U/L (15-37) H 11/02/18 08:32 ALT 52 U/L (10-53) 11/02/18 08:32 Alkaline Phosphatase 287 U/L (45-117) H 11/02/18 08:32 Total Creatine Kinase 143 U/L (26-192) 11/02/18 08:32 CK-MB (CK-2) 1.7 ng/mL (0.5-3.6) 11/02/18 01:06 Troponin I 0.35 ng/mL (0.02-0.05) H D 11/02/18 08:32 B-Natriuretic Peptide 3295 pg/mL (0-100) H 11/02/18 08:32 Total Protein 3.5 g/dL (6.4-8.2) L 11/02/18 08:32 Albumin 1.2 g/dL (3.4-5.0) L 11/02/18 08:32 Prealbumin 14 mg/dL (20-40) L 11/02/18 01:06 Vitamin B12 1035 pg/mL (193-986) H 11/01/18 14:28 TSH 1.880 uIU/mL (0.358-3.740) 11/01/18 03:49 Nasal Screen MRSA (PCR) Not detected (Negative) 11/02/18 01:08 Blood Type O Positive 11/01/18 04:56 Blood Type Recheck Required 11/01/18 04:56 Antibody Screen Negative 11/01/18 04:56 MTS Gel Crossmatch See Detail 11/01/18 09:[address] 11/01/18 00:00 CONCLUSION: 1. Very subtle lucency involving the left greater trochanter which likely represents nondisplaced fracture. 2. Diffuse anasarca. 3. Uncomplicated colonic diverticulosis. 4. Degenerative changes are noted involving the lower lumbar spine. Head CT 11/01/18 03:44 CONCLUSION: 1. Negative CT Head non contrast. . Hip X-Ray 11/01/18 03:49 CONCLUSION: On the single view the pelvis and concerned about the inferior femoral neck for slightly impacted fracture. There are 2 views are entirely normal Abdomen/Bladder Ultrasound 11/01/18 16:12 CONCLUSION: 1. Significantly limited exam due to patient's inability to tolerate positioning. 2. No sonographic evidence for gross obstructive uropathy. 3. Echogenic kidneys consistent with medical renal disease. Hip MRI 11/01/18 19:37 CONCLUSION: 1. No acute fracture or marrow edema involving the left hip. 2. Tiny left hip joint effusion. 3. Diffuse anasarca. 4. Uncomplicated colonic diverticulosis. 5. Degenerative changes and scoliosis of the lower lumbar spine. Abdomen/Pelvis CT 11/02/18 05:37 CONCLUSION: 1. No evidence for bowel obstruction, pneumatosis or free air as questioned. 2. Trace pleural effusions and dense airspace consolidation at the lung bases bilaterally, left greater than right. Cannot exclude pneumonia or aspiration in the appropriate clinical setting. 3. There is a small appendicolith with normal-appearing appendix. 4. Diffuse abdominal wall anasarca similar to prior exam. 5. Sigmoid diverticulosis without definitive evidence for diverticulitis. 6. Stable intra and extra hepatic bile duct prominence extending to the level of the ampulla of uncertain etiology. This is unchanged from remote 2015 CT exam. Chest X-Ray 11/02/18 08:26 CONCLUSION: 1. Endotracheal tube has its tip 3 cm above the jarocho in good position. 2. Bibasilar patchiness is unchanged. Objective Remarks: GENERAL: This is a morbidly obese chronically and critically ill-appearing female intubated and sedated SKIN: Warm and dry. Thin fragile skin with purpura and multiple sites with ecchymosis. Noted healed old surgical site left upper arm, no AV fistula palpated no bruit no thrill. Generalized anasarca with weeping HEAD: Atraumatic. Normocephalic. EYES: Pupils equal and round.EOMI. No scleral icterus. No injection or drainage. ENT: No nasal bleeding or discharge. Mucous membranes pink and dry. NECK: Trachea midline. No JVD. CARDIOVASCULAR: Sinus tachycardia. Regular rhythm RESPIRATORY: No accessory muscle use. Clear to auscultation. Breath sounds equal bilaterally. GASTROINTESTINAL: Abdomen soft, obese ,non-tender, nondistended. No guarding. MUSCULOSKELETAL: Extremities without clubbing, cyanosis, generalized anasarca. No obvious deformities. NEUROLOGICAL: Intubated and sedated. RASS -2. No gross focal/sensory deficits. Follows commands in all 4 extremities. Procedures: 11/02 : right IJ central line 11/02: Intubation 7.5 ETT 23 cm at the lip 11/02: Right femoral arterial line Assessment and Plan - Assessment and Plan Plan: Assessment: 73yF with chronic kidney disease who presents with syncope, likely acute hip fracture, anemia, and now acute hypotension and shock. Highest on the differential is cardiogenic shock vs. hypovolemic/hemorrhagic shock. Pancytopenic secondary to corticotrophin and prednisone therapy for minimal change disease. Neuro: Acute pain secondary to left hip fracture -Fentanyl infusion to maintain ventilator synchrony and provide analgesia -Daily sedation vacation - frequent neuro checks - Resp: Acute hypoxemic respiratory failure COPD -11/02 emergently intubated 7.5 ETT 23 cm at the lip -Ventilator bundle -DuoNeb every 4 hours and as needed -Initial ABG to patient 7.1 /379/16/-10 -Chest x-ray bibasilar patchiness consistent with atelectasis and/or infiltrates -Obtain chest x-rays and ABGs was clinically indicated -Antibiotics see below CV: New-onset atrial fibrillation with rapid ventricular response-resolved Undifferentiated Shock: hypovolemic/hemorrhagic vs. cardiogenic Elevated troponin Congestive heart failure, unknown type Sinus tachycardia - repeat ck, ckmb, trop - repeat BNP - trend lactates 5.6-> 6, trending upward -Received crystalloid bolus upon admission to ICU - Obtain Serial hgb - Requires vasopressors to keep map > 65 mmHg. Currently on vasopressin, norepinephrine and epinephrine - appreciate cardiology input - f/u 2d echo - unclear if elevated initial troponin represents NSTEMI vs. poor renal clearance. trending should give some diagnostic usefulness. Renal: Minimal change disease CKD stage IV/V Acute kidney injury superimposed on CKD -Continue prednisone 10 mg daily home dosing for THALIA, patient also on corticotrophin 80 units IM every 72 hours, unknown of last dose. Patient is currently being followed by the nephrology clinic at [facility], authorization to obtain reports have been requested. -Insert Woo - strict i/o's - hold home diuretics until further information can be obtained. - appreciate nephrology input FEN/GI: Acute protein calorie malnutrition- severe Anasarca/Total body volume overload Acute intravascular volume depletion Hypokalemia Hypomagnesemia Hypocalcemia Lactic Acidosis Shock liver - clinically appears quite malnourished chronically from chronic illness. - send prealbumin - repeat bmp, mg, phos - aggressive replacement of electrolytes, targeting K > 4.5, Mg > 2.5 in the setting of new-onset afib RVR -Begin sodium bicarbonate infusion 84 cc an hour -Glucose 38 with lactic acidemia, continue glucose monitoring every 4 hours. D50 times 1 AMP -Ultrasound abdominal exam very limited due to motion artifact of patient previously. repeat abdominal ultrasound -11/02 CT abdomen and pelvistrace pleural effusion, dense airspace consolidation, diffuse abdominal wall anasarca. Noted stable intra-and extrahepatic bile duct dilatation extending into the ampulla uncertain etiology ,but is the same as the CT that was performed in 2015. Heme/ID: Acute Anemia- multifactorial, iron deficiency, acute blood loss, chronic disease Pancytopenia Thrombocytopenia HSV Acute blood loss? Possible septic shock -The CBC, obtain serial lactate -Obtain blood, urine, sputum cultures, influenza a/b, strep pneumo and Legionella - transfuse to keep hgb > 7 - platelet count dropping. no recent exposure to heparin, and drop is < 3 days from admission. 4T score low probability for HIT. likely consumptive from acute bleeding. will hold on transfusing unless plt < 50k or worsening acute bleeding. - diarrhea is new and acute. no other signs of infection to suggest infectious diarrhea, however leukopenia is concerning and will send c. diff toxin PCR in the setting of immunosuppression. -Obtain fecal occult blood -Consult hematologyoncology -Consult infectious disease Endocrine: Chronic steroid use Acute hypoglycemia -Initiate sodium bicarbonate in D5W base at 84 cc an hour -D/C prednisone 10 mg daily PO, change information regarding corticotrophin IM 80u q 72 hr (last dose?), Begin hydrocortisone 100 mg every 6 hours - close monitoring of serum glucose - continue home prednisone 10mg po daily to prevent acute adrenal crisis. MSK: Possible left hip fracture - MRI appears to be negative for acute fracture - ortho consulted I would recommend against any potential emergent surgical repair until her cardiac and other acute medical issues are resolved. The patient is not cleared for surgery at this time Prophylaxis: - SCDs - hold pharmacologic dvt prophylaxis in the setting of acute severe anemia - protonix iv Lines: - piv x 3 -Central line 11/02, right femoral arterial line 11/02 Dispo: - transfer to ICU. Critically ill with new shock and hypotension. This patient remains critically ill with one or more organ systems which are or may become a threat to life. I have spent in excess of 77 minutes discontinuously in the care and management of this patient. This time is exclusive of procedures, and includes, but is not limited to, evaluation of the patient, review of the medical record, discussions with family, consultants, nursing staff, or respiratory therapy, and documentation in the medical record. Code Status: Full Discussed Condition With: Dr. Trujillo, patient's and HEAD OF ENGLISH at bedside
--- NOTE | 2018-11-02 10:51 | P.PNCA ---
Subjective Interval history: transferred to ICU due to low BP MRI hip showed no fracture Medications and Allergies Active Medications: Active Medications Hydrocodone Bitart/Acetaminophen (Cooter 7.5/325) 1 tab PO Q4H PRN PRN Reason: PAIN SCALE 1 TO 10 Last Admin: 11/01/18 17:41 Dose: 1 tab Allopurinol (Zyloprim) 100 mg PO DAILY [facility] Last Admin: 11/02/18 10:10 Dose: 100 mg Chlorhexidine Gluconate (Chlorhexidine 2% Cloth) 3 pack TOPICAL DAILY@0400 PRN PRN Reason: Extra cloth needed Stop: 11/07/18 03:59 Chlorhexidine Gluconate (Chlorhexidine 2% Cloth) 3 pack TOPICAL DAILY@0400 [facility] Stop: 11/07/18 03:59 Last Admin: 11/02/18 03:40 Dose: Not Given Chlorhexidine Gluconate (Peridex 0.12% Oral Kit) 15 ml OROPHARYNG BID@0800, 2000 [facility] Last Admin: 11/02/18 09:24 Dose: 15 ml Dextrose (D50w Vial) 50 ml IV.PUSH UNSCH PRN PRN Reason: PER HYPOGLYCEMIA PROTOCOL Famotidine (Pepcid Pf Inj) 10 mg IV.PUSH Q12HR [facility] Last Admin: 11/02/18 10:10 Dose: 10 mg Hydromorphone HCl (Dilaudid Pf Inj) 0.2 mg IV.PUSH Q4H PRN PRN Reason: BREAKTHROUGH PAIN Diltiazem HCl 125 mg/ Sodium (Chloride) 125 mls @ 5 mls/hr IV.CONT TITRATE PRN ; Protocol PRN Reason: Per Protocol Amiodarone HCl 450 mg/ (Dextrose) 250 mls @ 33.33 mls/hr IV.CONT TITRATE PRN; Protocol PRN Reason: Per Protocol Norepinephrine Bitartrate (Levophed-Dextrose 4 Mg/250 Ml Drip) 4 mg in 250 mls @ 7.5 mls/hr IV.SIG TITRATE PRN; Protocol PRN Reason: Per Protocol Vasopressin 40 unit/ Dextrose 100 mls @ 1.5 mls/hr IV.CONT TITRATE PRN; Protocol PRN Reason: Per Protocol Fentanyl (Fentanyl 10 Mcg/Ml Premix Drip) 2,500 mcg in 250 mls @ 5 mls/hr IV.SIG TITRATE PRN; Protocol PRN Reason: Per Protocol Last Admin: 11/02/18 09:08 Dose: 50 mcg/hr, 5 mls/hr Azithromycin 500 mg/ Sodium (Chloride) 250 mls @ 250 mls/hr IV.SIG ONCE ONE Stop: 11/02/18 10:59 Last Admin: 11/02/18 10:12 Dose: 250 mls/hr Cefepime HCl 2,000 mg/ Sodium (Chloride) 100 mls @ 200 mls/hr IV.SIG Q12H [facility] Epinephrine HCl 8 mg/ Dextrose 250 mls @ 5.62 mls/hr IV.CONT TITRATE PRN; Protocol PRN Reason: Per Protocol Sodium Bicarbonate 150 meq/ (Dextrose) 1,000 mls @ 84 mls/hr IV.CONT .[id number] [facility] Last Admin: 11/02/18 10:12 Dose: 84 mls/hr Micafungin Sodium 100 mg/ (Sodium Chloride) 100 mls @ 100 mls/hr IV.SIG Q24H [facility] Ceftaroline Fosamil 600 mg/ (Sodium Chloride) 100 mls @ 100 mls/hr IV.SIG Q12H [facility] Miscellaneous Medication () 1 each OROPHARYNG 0000,0400,1200,1600 [facility] Non-Formulary Medication (Corticotropin [Acthar H.P.]) 80 unit IM Q72H [facility] Ondansetron HCl (Zofran Inj) 4 mg IV.PUSH Q6H PRN PRN Reason: nausea, vomiting Potassium Chloride (K-Dur) 20 meq PO DAILY [facility] Last Admin: 11/02/18 10:10 Dose: 20 meq Prednisone (Deltasone) 10 mg PO DAILY [facility] Last Admin: 11/02/18 10:10 Dose: 10 mg Terbutaline Sulfate (Brethine Inj) 1 mg SQ UNSCH PRN PRN Reason: For Extravasation Torsemide (Demadex) 20 mg PO BID [facility] Last Admin: 11/01/18 20:14 Dose: Not Given Allergies Allergy/AdvReac Type Severity Reaction Status Date / Time No Known Allergies Allergy Verified 11/01/18 03:44 Home Medications Medication Instructions Recorded Confirmed Type allopurinol 100 mg PO DAILY 11/01/18 11/01/18 History cholecalciferol (vitamin D3) 5,000 unit PO DAILY 11/01/18 11/01/18 History [Vitamin D3] corticotropin [Acthar H.P.] 80 unit IM Q72H 11/01/18 11/01/18 History famotidine 40 mg PO DAILY 11/01/18 11/01/18 History metolazone 2.5 mg PO DAILY 11/01/18 11/01/18 History nifedipine 30 mg PO DAILY 11/01/18 11/01/18 History nifedipine 60 mg PO QPM 11/01/18 11/01/18 History potassium chloride 20 meq PO BID 11/01/18 11/01/18 History prednisone 10 mg PO DAILY 11/01/18 11/01/18 History sulfamethoxazole-trimethoprim 1 tab PO 3XW 11/01/18 11/01/18 History torsemide 20 mg PO BID 11/01/18 11/01/18 History Physical Exam Vital signs: Vital Signs 11/01/18 11:00 11/01/18 12:00 11/01/18 13:00 Temperature 97.7 F Pulse Rate 104 H 96 H 100 H Respiratory Rate 18 Blood Pressure 112/53 L Pulse Oximetry 100 11/01/18 14:00 11/01/18 15:00 11/01/18 16:00 Temperature 97.9 F Pulse Rate 108 H 106 H 116 H Respiratory Rate 18 Blood Pressure 100/65 Pulse Oximetry 95 11/01/18 20:00 11/01/18 20:20 11/01/18 21:00 Temperature 98.9 F Pulse Rate 100 H 98 H 111 H Respiratory Rate 22 Blood Pressure 110/54 L 84/50 L Pulse Oximetry 97 11/01/18 23:00 11/01/18 23:26 11/01/18 23:51 Temperature 98.8 F Pulse Rate 120 H 108 H Respiratory Rate 20 22 Blood Pressure 80/51 L 91/51 L Pulse Oximetry 97 11/02/18 00:00 11/02/18 00:05 11/02/18 01:00 Temperature 98.3 F Pulse Rate 108 H 130 H 110 H Respiratory Rate 22 Blood Pressure 75/45 L 81/50 L Pulse Oximetry 96 11/02/18 01:53 11/02/18 02:00 11/02/18 03:00 Temperature Pulse Rate 97 H 110 H Respiratory Rate Blood Pressure 86/55 L 133/73 Pulse Oximetry 94 L 11/02/18 04:00 11/02/18 05:00 11/02/18 06:00 Temperature 98.5 F Pulse Rate 98 H 100 H 97 H Respiratory Rate Blood Pressure 71/38 L 111/58 L 105/59 L Pulse Oximetry 11/02/18 06:53 11/02/18 06:55 11/02/18 06:58 Temperature Pulse Rate 97 H 98 H Respiratory Rate Blood Pressure 113/55 L 105/53 L 103/57 L Pulse Oximetry 90 L 90 L 11/02/18 07:00 11/02/18 07:03 11/02/18 07:05 Temperature Pulse Rate 98 H 96 H 96 H Respiratory Rate Blood Pressure 105/59 L 108/56 L 89/54 L Pulse Oximetry 93 L 93 L 93 L 11/02/18 07:08 11/02/18 07:10 11/02/18 07:13 Temperature Pulse Rate 96 H 96 H 97 H Respiratory Rate Blood Pressure 96/54 L 94/53 L 102/52 L Pulse Oximetry 93 L 94 L 93 L 11/02/18 07:15 11/02/18 07:18 11/02/18 07:20 Temperature Pulse Rate 94 H 94 H 94 H Respiratory Rate 31 H 31 H 31 H Blood Pressure 96/50 L 93/53 L 89/54 L Pulse Oximetry 93 L 92 L 92 L 11/02/18 07:23 11/02/18 07:25 11/02/18 07:28 Temperature Pulse Rate 93 H 93 H 100 H Respiratory Rate 30 H 30 H 31 H Blood Pressure 86/44 L 88/49 L 92/49 L Pulse Oximetry 92 L 90 L 86 L 11/02/18 07:31 11/02/18 07:33 11/02/18 07:35 Temperature Pulse Rate 94 H 91 H 91 H Respiratory Rate 28 H 30 H 28 H Blood Pressure 80/41 L 71/36 L 59/26 L Pulse Oximetry 93 L 86 L 81 L 11/02/18 07:37 11/02/18 07:40 11/02/18 07:43 Temperature Pulse Rate 91 H 91 H 92 H Respiratory Rate 45 H 34 H 23 Blood Pressure 59/36 L 113/66 148/63 H Pulse Oximetry 80 L 75 L 71 L 11/02/18 08:00 11/02/18 08:01 11/02/18 08:05 Temperature Pulse Rate 101 H 104 H 107 H Respiratory Rate 26 H 26 H 28 H Blood Pressure 86/37 L 86/39 L Pulse Oximetry 58 L 71 L 67 L 11/02/18 08:17 11/02/18 08:20 11/02/18 08:21 Temperature Pulse Rate 93 H Respiratory Rate 17 14 Blood Pressure 88/38 L 128/58 L Pulse Oximetry 99 Intake & Output 11/01/18 11/02/18 11/02/18 18:59 06:59 18:59 Intake Total 690 / 690 100 / 100 2420 / 2420 Balance 690 / 690 100 / 100 2420 / 2420 Weight 95 kg Intake: IV 290 / 290 100 / 100 2420 / 2420 D5W/Normal Saline Inj 1,000 ML 500 / 500 @ 84 mls/hr IV.CONT .[id number] [facility] Rx#:[id number] Alburx 5% Inj 500 ML @ 250 mls/ 500 / 500 hr IV.SIG STAT STA Rx#:[id number] Cordarone Inj 150 MG In D5W Inj 100 / 100 97 ML @ 100 mls/hr IV.SIG ONCE ONE Rx#:[id number] Calcium Gluconate Inj 2 GM In 120 / 120 NS Inj 100 ML @ 120 mls/hr IV. SIG ONCE ONE Rx#:[id number] Magnesium Sulfate Inj 2 GM In 100 / 100 NS Inj 96 ML @ 50 mls/hr IV.SIG ONCE ONE Rx#:[id number] KCl 20 mEq Premix Inj 20 meq In 200 / 200 100 / 100 100 / 100 100 ml @ 50 mls/hr IV.SIG Q2H [facility] Rx#:[id number] NS Inj 1,000 ML @ 1000 mls/hr 1000 / 1000 IV.SIG BOLUS [facility] Rx#:[id number] NS Inj 250 ML @ 15 mls/hr IV. 90 / 90 SIG ONCE [facility] Rx#:[id number] Oral 0 / 0 0 / 0 Intake (Blood Product) Amt 400 / 400 Rbc As-3 Leukoreduced Unit 400 / 400 [id number] Rbc As-3 Leukoreduced Unit 0 / 0 [id number] Other: # Incontinent Voids 3 Date of Last Bowel Movement 11/02/18 # Bowel Movements 3 - Constitutional Comments: sedated on ventilator - Routine Respiratory Exam Present: patient mechanically ventilated - Routine Cardiovascular Exam Present: RRR, tachycardia - Routine Abdominal Exam Present: soft Results 11/02/18 08:32 11/02/18 08:32 Cardiac Enzymes 11/01/18 11/01/18 11/02/18 Range/Units 03:49 03:49 01:06 AST 64 H (15-37) U/L CK-MB (CK-2) 1.7 (0.5-3.6) ng/mL Troponin I 0.10 H 0.12 H (0.02-0.05) ng/mL B-Natriuretic Peptide 710 H (0-100) pg/mL 11/02/18 11/02/18 11/02/18 Range/Units 01:06 04:43 08:32 AST 57 H 49 H (15-37) U/L CK-MB (CK-2) (0.5-3.6) ng/mL Troponin I 0.35 H D (0.02-0.05) ng/mL B-Natriuretic Peptide 1623 H (0-100) pg/mL 11/02/18 Range/Units 08:32 AST (15-37) U/L CK-MB (CK-2) (0.5-3.6) ng/mL Troponin I (0.02-0.05) ng/mL B-Natriuretic Peptide 3295 H (0-100) pg/mL Coagulation 11/01/18 11/01/18 11/02/18 Range/Units 03:49 03:49 01:06 PT 10.5 (9.8-11.6) sec APTT 25.8 (23.4-31.7) sec B-Natriuretic Peptide 710 H 1623 H (0-100) pg/mL 11/02/18 Range/Units 08:32 PT (9.8-11.6) sec APTT (23.4-31.7) sec B-Natriuretic Peptide 3295 H (0-100) pg/mL CBC 11/01/18 11/01/18 11/02/18 Range/Units 03:49 14:28 01:06 WBC 1.3 L 1.4 L 0.7 L (4.0-11.0) th/mm3 RBC 2.24 L 3.52 L 3.42 L (4.00-5.30) mil/mm3 Hgb 6.8 L* 11.2 L D 10.6 L (11.6-15.3) gm/dL Hct 20.4 L* 32.4 L 31.0 L (35.0-46.0) % Plt Count 204 160 92 L D (150-450) th/mm3 Neut # (Auto) 1.1 L 1.2 L 0.6 L (1.8-7.7) th/mm3 Lymph # (Auto) 0.1 L 0.1 L 0.0 L (1.0-4.8) th/mm3 [place] # (Auto) 0.0 0.0 0.0 (0.0-0.9) th/mm3 Eos # (Auto) 0.0 0.0 0.0 (0.0-0.4) th/mm3 Baso # (Auto) 0.0 0.0 0.0 (0.0-0.2) th/mm3 11/02/18 11/02/18 Range/Units 04:43 08:32 WBC 0.2 L D 0.2 L (4.0-11.0) th/mm3 RBC 3.17 L 2.84 L (4.00-5.30) mil/mm3 Hgb 9.9 L 8.9 L (11.6-15.3) gm/dL Hct 29.3 L 26.5 L (35.0-46.0) % Plt Count 73 L 54 L (150-450) th/mm3 Neut # (Auto) (1.8-7.7) th/mm3 Lymph # (Auto) (1.0-4.8) th/mm3 [place] # (Auto) (0.0-0.9) th/mm3 Eos # (Auto) (0.0-0.4) th/mm3 Baso # (Auto) (0.0-0.2) th/mm3 Comprehensive Metabolic Panel 11/01/18 11/01/18 11/01/18 Range/Units 03:49 03:49 14:28 Sodium 142 Cancelled 141 (136-145) meq/L Potassium 2.3 L* Cancelled 3.1 L D (3.5-5.1) meq/L Chloride 104 Cancelled 106 (98-107) meq/L Carbon Dioxide 24.2 Cancelled 23.8 (21.0-32.0) meq/L BUN 75 H Cancelled 75 H (7-18) mg/dL Creatinine 2.76 H Cancelled 2.76 H (0.50-1.00) mg/dL Calcium 7.1 L* Cancelled 7.2 L* (8.5-10.1) mg/dL AST 64 H (15-37) U/L ALT 80 H (10-53) U/L Alkaline Phosphatase 446 H (45-117) U/L Total Protein 4.3 L (6.4-8.2) g/dL Albumin 1.4 L 1.3 L (3.4-5.0) g/dL 11/02/18 11/02/18 11/02/18 Range/Units 01:06 04:43 08:32 Sodium 143 144 143 (136-145) meq/L Potassium 3.0 L 3.7 4.0 (3.5-5.1) meq/L Chloride 109 H 109 H 111 H (98-107) meq/L Carbon Dioxide 21.6 18.2 L 17.0 L (21.0-32.0) meq/L BUN 79 H 79 H 79 H (7-18) mg/dL Creatinine 2.99 H 3.09 H 3.05 H (0.50-1.00) mg/dL Calcium 6.8 L* 7.1 L* 6.8 L* (8.5-10.1) mg/dL AST 57 H 49 H (15-37) U/L ALT 63 H 52 (10-53) U/L Alkaline Phosphatase 334 H 287 H (45-117) U/L Total Protein 4.0 L 3.5 L (6.4-8.2) g/dL Albumin 0.9 L 1.5 L D 1.2 L (3.4-5.0) g/dL Intake and Output 11/01/18 11/02/18 11/02/18 22:59 06:59 14:59 Intake Total 0 / 0 100 / 100 2420 / 2420 Balance 0 / 0 100 / 100 2420 / 2420 Intake: IV 100 / 100 2420 / 2420 D5W/Normal Saline Inj 1,000 ML 500 / 500 @ 84 mls/hr IV.CONT .[id number] [facility] Rx#:[id number] Alburx 5% Inj 500 ML @ 250 mls/ 500 / 500 hr IV.SIG STAT STA Rx#:[id number] Cordarone Inj 150 MG In D5W Inj 100 / 100 97 ML @ 100 mls/hr IV.SIG ONCE ONE Rx#:[id number] Calcium Gluconate Inj 2 GM In 120 / 120 NS Inj 100 ML @ 120 mls/hr IV. SIG ONCE ONE Rx#:[id number] Magnesium Sulfate Inj 2 GM In 100 / 100 NS Inj 96 ML @ 50 mls/hr IV.SIG ONCE ONE Rx#:[id number] KCl 20 mEq Premix Inj 20 meq In 100 / 100 100 / 100 100 ml @ 50 mls/hr IV.SIG Q2H [facility] Rx#:[id number] NS Inj 1,000 ML @ 1000 mls/hr 1000 / 1000 IV.SIG BOLUS [facility] Rx#:[id number] Oral 0 / 0 0 / 0 Other: # Incontinent Voids 3 Date of Last Bowel Movement 11/02/18 # Bowel Movements 3 Weight 95 kg - Imaging and Cardiology Imaging: Impressions Hip CT 11/01/18 00:00 CONCLUSION: 1. Very subtle lucency involving the left greater trochanter which likely represents nondisplaced fracture. 2. Diffuse anasarca. 3. Uncomplicated colonic diverticulosis. 4. Degenerative changes are noted involving the lower lumbar spine. Chest X-Ray 11/01/18 03:44 CONCLUSION: No obvious infiltrate or mass. No visible pneumothorax or displaced rib fracture Head CT 11/01/18 03:44 CONCLUSION: 1. Negative CT Head non contrast. . Hip X-Ray 11/01/18 03:49 CONCLUSION: On the single view the pelvis and concerned about the inferior femoral neck for slightly impacted fracture. There are 2 views are entirely normal Abdomen/Bladder Ultrasound 11/01/18 16:12 CONCLUSION: 1. Significantly limited exam due to patient's inability to tolerate positioning. 2. No sonographic evidence for gross obstructive uropathy. 3. Echogenic kidneys consistent with medical renal disease. Hip MRI 11/01/18 19:37 CONCLUSION: 1. No acute fracture or marrow edema involving the left hip. 2. Tiny left hip joint effusion. 3. Diffuse anasarca. 4. Uncomplicated colonic diverticulosis. 5. Degenerative changes and scoliosis of the lower lumbar spine. Abdomen/Pelvis CT 11/02/18 05:37 CONCLUSION: 1. No evidence for bowel obstruction, pneumatosis or free air as questioned. 2. Trace pleural effusions and dense airspace consolidation at the lung bases bilaterally, left greater than right. Cannot exclude pneumonia or aspiration in the appropriate clinical setting. 3. There is a small appendicolith with normal-appearing appendix. 4. Diffuse abdominal wall anasarca similar to prior exam. 5. Sigmoid diverticulosis without definitive evidence for diverticulitis. 6. Stable intra and extra hepatic bile duct prominence extending to the level of the ampulla of uncertain etiology. This is unchanged from remote 2015 CT exam. Chest X-Ray 11/02/18 07:43 CONCLUSION: 1. No pneumothorax status post placement of right internal jugular central line which has tip in superior vena cava. 2. Bibasilar patchiness consistent with atelectasis and/or infiltrate. 3. Cardiomegaly. Chest X-Ray 11/02/18 08:26 CONCLUSION: 1. Endotracheal tube has its tip 3 cm above the jarocho in good position. 2. Bibasilar patchiness is unchanged. Assessment and Plan - Assessment (1) Severe anemia Code(s): D64.9 - Anemia, unspecified Status: Acute (2) Syncope Code(s): R55 - Syncope and collapse Status: Acute (3) Atrial fibrillation with rapid ventricular response Code(s): I48.91 - Unspecified atrial fibrillation Status: Acute - Plan 1.. AFib RVR. Presumed new diagnosis. probably related to acute blood loss anemia, severe pain from her fall had converted sinus rhythm. Off IV Cardizem drip. echocardiogram ordered 2. severe anemia. Likely due to chronically disease. Being transfused, hemoglobin up from 6,4 up to 11. 3. Syncope. Etiology to be determined. Continue telemetry monitoring. Waiting for echo she may need event monitor when she discharge. 4. Left hip pain. No fracture identified by MRI 5. declined mental status and hypotension. Patient was intubated for airway support.
--- NOTE | 2018-11-02 11:12 | US ---
EXAM DATE: 11/02/2018 11:00 AM EST AGE/SEX: 73 years / Female INDICATIONS: Right upper quadrant pain. CLINICAL DATA: This is the patient's initial encounter. Patient reports that signs and symptoms have been present for 1 day and indicates a pain score of 3/10. MEDICAL/SURGICAL HISTORY: Chronic obstructive pulmonary disease. Hypertension. Osteoarthritis. Genital herpes. Chronic kidney disease. Hysterectomy. Cholecystectomy. Abdominoplasty. Breast redu ction and implants. Cataract surgery. Kidney biopsy. [place] [facility] [place] CONTRAST, 11/02/2018. . MEASUREMENTS: Liver:__ 18.1 cm. Common Bile Duct:___ >20mm. Right Kidney:___9.4 x 4.8 x 5.3 cm. Left Kidney:___. Not visualized.. Spleen:___. Not visualized.. FINDINGS: Liver: The liver is enlarged. Increased echogenicity without focal lesion or ductal dilatation. Portal Vein: Hepatopedal flow seen in portal vein. Common Duct: The common bile duct is significantly dilated and measures 18 mm in caliber. ERCP may b e helpful for further evaluation and possible treatment of this finding if clinically. Gallbladder: Surgically absent. Pancreas: Not well visualized. Right Kidney: Increased echogenicity. No mass or hydronephrosis. Left Kidney: Not visualized. Ascites: None Pleural Effusion: Right Spleen: No focal lesion. Aorta: Non aneurysmal. IVC: Within normal limits Other: None. CONCLUSION: 1. Distal common bile duct measures 18 mm in caliber. ERCP may be helpful for further evaluation and possible treatment of this finding if clinically indicated. 2. Enlarged fatty liver. 3. Small right pleural effusion. 4. Echogenic right kidney consistent with medical renal disease. 5. Nonvisualization of the pancreas and left kidney due to shadowing bowel gas. Electronically signed by: Mayank Zurita MD Board Certified Radiologist 11/02/2018 11:10 AM EST
--- NOTE | 2018-11-02 11:31 | ECG ---
Date Performed: 11/02/2018 Time Performed: 08:49:58 PTAGE: 73 years EKG: Sinus tachycardia. Anteroseptal infarct - age undetermined Inferior/lateral T wave changes are nonspecific Abnormal ECG PREVIOUS TRACING : 11/01/2018 04.03 Compared to previous tracing, sinus tachycardia has replace d atrial fibrillation DOCTOR: Juan David Arango Interpretating Date/Time 11/02/2018 11:30:50
[2018-11-02 11:36] LABS: ABG Base Excess -20.1 mmol/L (-2-2); ABG PCO2 20 mmHg (38-42); ABG PO2 263 mmHG (61-120)
--- NOTE | 2018-11-02 11:53 | P.PNNP ---
Subjective Interval history: Patient was seen, intubated, on 60% FiO2, sedated, no distress. Patient transfused yesterday, Hgb has improved. Given K supplement today, K has improved. Renal function declined from yesterday, Creatinine is 3.05 and BUN 79. Per nurse , patient made 400 mL of urine today. <Rowena Joyce - Last Filed: 11/02/18 11:30> Physical Exam Vital signs: Vital Signs 11/01/18 12:00 11/01/18 13:00 11/01/18 14:00 Temperature 97.7 F Pulse Rate 96 H 100 H 108 H Respiratory Rate 18 Blood Pressure 112/53 L Pulse Oximetry 100 11/01/18 15:00 11/01/18 16:00 11/01/18 20:00 Temperature 97.9 F 98.9 F Pulse Rate 106 H 116 H 100 H Respiratory Rate 18 22 Blood Pressure 100/65 110/54 L Pulse Oximetry 95 97 11/01/18 20:20 11/01/18 21:00 11/01/18 23:00 Temperature Pulse Rate 98 H 111 H 120 H Respiratory Rate Blood Pressure 84/50 L 80/51 L Pulse Oximetry 11/01/18 23:26 11/01/18 23:51 11/02/18 00:00 Temperature 98.8 F Pulse Rate 108 H 108 H Respiratory Rate 20 22 Blood Pressure 91/51 L Pulse Oximetry 97 11/02/18 00:05 11/02/18 01:00 11/02/18 01:53 Temperature 98.3 F Pulse Rate 130 H 110 H Respiratory Rate 22 Blood Pressure 75/45 L 81/50 L Pulse Oximetry 96 94 L 11/02/18 02:00 11/02/18 03:00 11/02/18 04:00 Temperature 98.5 F Pulse Rate 97 H 110 H 98 H Respiratory Rate Blood Pressure 86/55 L 133/73 71/38 L Pulse Oximetry 11/02/18 05:00 11/02/18 06:00 11/02/18 06:53 Temperature Pulse Rate 100 H 97 H Respiratory Rate Blood Pressure 111/58 L 105/59 L 113/55 L Pulse Oximetry 11/02/18 06:55 11/02/18 06:58 11/02/18 07:00 Temperature Pulse Rate 97 H 98 H 98 H Respiratory Rate Blood Pressure 105/53 L 103/57 L 105/59 L Pulse Oximetry 90 L 90 L 93 L 11/02/18 07:03 11/02/18 07:05 11/02/18 07:08 Temperature Pulse Rate 96 H 96 H 96 H Respiratory Rate Blood Pressure 108/56 L 89/54 L 96/54 L Pulse Oximetry 93 L 93 L 93 L 11/02/18 07:10 11/02/18 07:13 11/02/18 07:15 Temperature Pulse Rate 96 H 97 H 94 H Respiratory Rate 31 H Blood Pressure 94/53 L 102/52 L 96/50 L Pulse Oximetry 94 L 93 L 93 L 11/02/18 07:18 11/02/18 07:20 11/02/18 07:23 Temperature Pulse Rate 94 H 94 H 93 H Respiratory Rate 31 H 31 H 30 H Blood Pressure 93/53 L 89/54 L 86/44 L Pulse Oximetry 92 L 92 L 92 L 11/02/18 07:25 11/02/18 07:28 11/02/18 07:31 Temperature Pulse Rate 93 H 100 H 94 H Respiratory Rate 30 H 31 H 28 H Blood Pressure 88/49 L 92/49 L 80/41 L Pulse Oximetry 90 L 86 L 93 L 11/02/18 07:33 11/02/18 07:35 11/02/18 07:37 Temperature Pulse Rate 91 H 91 H 91 H Respiratory Rate 30 H 28 H 45 H Blood Pressure 71/36 L 59/26 L 59/36 L Pulse Oximetry 86 L 81 L 80 L 11/02/18 07:40 11/02/18 07:43 11/02/18 08:00 Temperature Pulse Rate 91 H 92 H 101 H Respiratory Rate 34 H 23 26 H Blood Pressure 113/66 148/63 H Pulse Oximetry 75 L 71 L 58 L 11/02/18 08:01 11/02/18 08:05 11/02/18 08:17 Temperature Pulse Rate 104 H 107 H 93 H Respiratory Rate 26 H 28 H 17 Blood Pressure 86/37 L 86/39 L 88/38 L Pulse Oximetry 71 L 67 L 11/02/18 08:20 11/02/18 08:21 Temperature Pulse Rate Respiratory Rate 14 Blood Pressure 128/58 L Pulse Oximetry 99 Intake & Output 11/01/18 11/02/18 11/02/18 18:59 06:59 18:59 Intake Total 690 / 690 100 / 100 2420 / 2420 Balance 690 / 690 100 / 100 2420 / 2420 Weight 95 kg Intake: IV 290 / 290 100 / 100 2420 / 2420 D5W/Normal Saline Inj 1,000 ML 500 / 500 @ 84 mls/hr IV.CONT .[id number] JACBO Rx#:[id number] Alburx 5% Inj 500 ML @ 250 mls/ 500 / 500 hr IV.SIG STAT STA Rx#:[id number] Cordarone Inj 150 MG In D5W Inj 100 / 100 97 ML @ 100 mls/hr IV.SIG ONCE ONE Rx#:[id number] Calcium Gluconate Inj 2 GM In 120 / 120 NS Inj 100 ML @ 120 mls/hr IV. SIG ONCE ONE Rx#:[id number] Magnesium Sulfate Inj 2 GM In 100 / 100 NS Inj 96 ML @ 50 mls/hr IV.SIG ONCE ONE Rx#:[id number] KCl 20 mEq Premix Inj 20 meq In 200 / 200 100 / 100 100 / 100 100 ml @ 50 mls/hr IV.SIG Q2H JACOB Rx#:[id number] NS Inj 1,000 ML @ 1000 mls/hr 1000 / 1000 IV.SIG BOLUS JACOB Rx#:[id number] NS Inj 250 ML @ 15 mls/hr IV. 90 / 90 SIG ONCE JACOB Rx#:[id number] Oral 0 / 0 0 / 0 Intake (Blood Product) Amt 400 / 400 Rbc As-3 Leukoreduced Unit 400 / 400 [id number] Rbc As-3 Leukoreduced Unit 0 / 0 [id number] Other: # Incontinent Voids 3 Date of Last Bowel Movement 11/02/18 # Bowel Movements 3 Narrative: GENERAL: Sedated, orally intubated, NAD SKIN: Generalized bruising and anasarca all over the body. HEAD: Atraumatic. Normocephalic. EYES: Pupils equal round and reactive. Scleral icterus. No injection or drainage. NECK: Trachea midline. Supple, nontender, no meningeal signs. CARDIOVASCULAR: HS audible. RESPIRATORY: Air entry equal bilaterally. Clear to auscultation bilaterally. GASTROINTESTINAL: Abdomen soft, obese. MUSCULOSKELETAL: Extremities without clubbing, cyanosis. NEUROLOGICAL: Sedated. <Rowena Joyce - Last Filed: 11/02/18 11:30> Vital signs: Vital Signs 11/02/18 08:00 11/02/18 08:01 11/02/18 08:05 Pulse Rate 87 104 H 107 H Respiratory Rate 26 H 26 H 28 H Blood Pressure 86/37 L 86/39 L Pulse Oximetry 58 L 71 L 67 L 11/02/18 08:17 11/02/18 08:20 11/02/18 08:21 Pulse Rate 93 H Respiratory Rate 17 14 Blood Pressure 88/38 L 128/58 L Pulse Oximetry 99 11/02/18 08:51 11/02/18 08:52 11/02/18 08:54 Pulse Rate 114 H 113 H 114 H Respiratory Rate 28 H 26 H 25 H Blood Pressure 163/70 H 162/70 H Pulse Oximetry 99 99 99 11/02/18 08:56 11/02/18 08:58 11/02/18 09:00 Pulse Rate 112 H 111 H 110 H Respiratory Rate 26 H 28 H 28 H Blood Pressure 163/68 H 152/66 H 150/67 H Pulse Oximetry 99 99 99 11/02/18 09:11 11/02/18 09:20 11/02/18 09:35 Pulse Rate 107 H 108 H 99 H Respiratory Rate 27 H 28 H 29 H Blood Pressure 135/58 L 138/61 133/91 H Pulse Oximetry 97 98 91 L 11/02/18 09:44 11/02/18 10:00 11/02/18 10:42 Pulse Rate 96 H 103 H 67 Respiratory Rate 26 H 30 H Blood Pressure 90/64 L 142/65 H Pulse Oximetry 82 L 86 L 11/02/18 10:51 11/02/18 11:00 11/02/18 11:11 Pulse Rate 52 L 100 H 102 H Respiratory Rate 0 L 25 H 25 H Blood Pressure 122/55 L 96/57 L 115/70 Pulse Oximetry 11/02/18 11:23 11/02/18 11:31 11/02/18 11:39 Pulse Rate 102 H 100 H Respiratory Rate 21 18 23 Blood Pressure 124/88 93/39 L Pulse Oximetry 79 L 99 11/02/18 11:41 11/02/18 11:50 11/02/18 12:00 Pulse Rate 93 H 112 H 101 H Respiratory Rate 21 18 21 Blood Pressure 88/53 L 89/53 L 92/54 L Pulse Oximetry 11/02/18 12:10 11/02/18 12:20 11/02/18 12:30 Pulse Rate 97 H 91 H 81 Respiratory Rate 17 18 18 Blood Pressure 91/56 L 90/61 L 79/55 L Pulse Oximetry 11/02/18 12:41 11/02/18 13:00 11/02/18 13:11 Pulse Rate 52 L 81 0 L Respiratory Rate 144 H 6 L 68 H Blood Pressure 84/37 L 137/64 192/85 H Pulse Oximetry 61 L Intake & Output 11/02/18 11/03/18 11/03/18 18:59 06:59 18:59 Intake Total 2420 / 2420 Balance 2420 / 2420 Intake: IV 2420 / 2420 D5W/Normal Saline Inj 1,000 ML 500 / 500 @ 84 mls/hr IV.CONT .[id number] JACOB Rx#:[id number] Alburx 5% Inj 500 ML @ 250 mls/ 500 / 500 hr IV.SIG STAT STA Rx#:[id number] Cordarone Inj 150 MG In D5W Inj 100 / 100 97 ML @ 100 mls/hr IV.SIG ONCE ONE Rx#:[id number] Calcium Gluconate Inj 2 GM In 120 / 120 NS Inj 100 ML @ 120 mls/hr IV. SIG ONCE ONE Rx#:[id number] Magnesium Sulfate Inj 2 GM In 100 / 100 NS Inj 96 ML @ 50 mls/hr IV.SIG ONCE ONE Rx#:[id number] KCl 20 mEq Premix Inj 20 meq In 100 / 100 100 ml @ 50 mls/hr IV.SIG Q2H JACOB Rx#:[id number] NS Inj 1,000 ML @ 1000 mls/hr 1000 / 1000 IV.SIG BOLUS JACOB Rx#:[id number] Other: Date of Last Bowel Movement 11/02/18 <Luis Hand - Last Filed: 11/03/18 07:46> Assessment and Plan - Assessment (1) Chronic kidney disease Code(s): N18.9 - Chronic kidney disease, unspecified Status: Acute Plan: Patient follows with chair finisher Dr. May at [facility]. Records request has been sent. Patient reportedly had temporary hemodialysis spring. Abdominal CT showed no hydronephrosis. May need to start HD again, will monitor labs. Hold Acthar. Start stress dose steroids. Monitor fluid and electrolytes. Monitor urine output. Avoid nephrotoxic agents. (2) Severe anemia Code(s): D64.9 - Anemia, unspecified Status: Acute Plan: Transfused yesterday. Hgb now 8.9. (3) Hypokalemia Code(s): E87.6 - Hypokalemia Status: Acute Plan: Given K supplement today. K is now 4.0. (4) Atrial fibrillation with rapid ventricular response Code(s): I48.91 - Unspecified atrial fibrillation Status: Acute Plan: Currently on Amiodarone. Cardiology has been consulted. <Rowena Joyce - Last Filed: 11/02/18 11:30> - Assessment (1) Chronic kidney disease Code(s): N18.9 - Chronic kidney disease, unspecified Status: Acute (2) Severe anemia Code(s): D64.9 - Anemia, unspecified Status: Acute (3) Hypokalemia Code(s): E87.6 - Hypokalemia Status: Acute (4) Atrial fibrillation with rapid ventricular response Code(s): I48.91 - Unspecified atrial fibrillation Status: Acute - Attending Attestation patient was seen and examined. She looks very ill. On the ventilator. Renal function is worsening. Prognosis is guarded. May need to start dialysis again. <Luis Hand - Last Filed: 11/03/18 07:46>
[2018-11-02] MEDS ORDERED: Oral Hygiene Kit OROPHARYNG SCH (12:00)
[2018-11-02] MEDS ORDERED: Sodium Bicarbonate 8.4% Inj 50 MEQ/50 ML Syringe IV.PUSH SCH (12:00)
[2018-11-02] MEDS ORDERED: Hydrocortisone Sod Succinate 100 MG Vial IV.PUSH SCH (12:00)
[2018-11-02] MEDS ORDERED: DOPamine 800 MG/500 ML Premix 800 MG/500 ML PLAST..BAG IV.CONT ONE (13:10)
[2018-11-02] MEDS ORDERED: Sodium Bicarbonate 8.4% Inj 50 MEQ/50 ML Syringe IV.CONT ONE ×2 (13:10)
[2018-11-02] MEDS ORDERED: Calcium Chloride Inj 1 GM/10 ML Syringe IV.CONT ONE (13:10)
[2018-11-02 14:07] LABS: Amorphous Sediment,Urine Occasional /hpf; Bacteria,Urine Occasional /hpf; Bilirubin,Urine Negative (Negative); Clarity,Urine Cloudy (Clear); Color,Urine Yellow (Yellw/Straw); Glucose,Urine (UA) 50 mg/dL (Negative); Hyaline Casts,Urine 12 /lpf (0-3); Leukocyte Esterase,Urine Negative (Negative); Mucus,Urine Few /lpf (Occasional); Nitrite,Urine Negative (Negative); Specific Gravity,Urine 1.014 (1.002-1.035); Squamous Epithelial Cell,Urine 1 /hpf (0-5)
[2018-11-02 14:16] LABS: Protein/Creatinine Ratio,Urine 12.81 (0.00-0.14); Total Protein,Urine Random 743.1 mg/dL (0-11.8)
--- NOTE | 2018-11-02 14:46 | ECHRPT ---
Indication: Atrial Fib and Flutter CONCLUSIONS Normal left ventricular size. Moderate concentric left ventricular hypertrophy. The left ventricular systolic function is moderately reduced with an estimated ejection fraction in the range of 40-45%. Mild mitral valve regurgitation. Aortic valve sclerosis is present. There is trace tricuspid valve regurgitation. The estimated pulmonary arterial pressure is 46 mmHg. Trivial pulmonary valve regurgitation. BP: 138 / 58 HR: 106 Rhythm: MEASUREMENTS (Male / Female) Normal Values Technical Quality:Fair 2D ECHO LV Diastolic Diameter PLAX 4.8 cm 4.2 - 5.9 / 3.9 - 5.3 cm LV Systolic Diameter PLAX 3.6 cm IVS Diastolic Thickness 1.3 cm 0.6 - 1.0 / 0.6 - 0.9 cm LVPW Diastolic Thickness 1.3 cm 0.6 - 1.0 / 0.6 - 0.9 cm LV Relative Wall Thickness 0.5 RV Internal Dim ED PLAX 3.0 cm LVOT Diameter 2.1 cm Aortic Root Diameter 2.5 cm LA Systolic Diameter LX 3.8 cm 3.0 - 4.0 / 2.7 - 3.8 cm DOPPLER AV Peak Velocity 193.0 cm/s AV Peak Gradient 14.9 mmHg LVOT Peak Velocity 111.0 cm/s LVOT Peak Gradient 4.9 mmHg AV Area Cont Eq pk 2.0 cm Mitral E Point Velocity 119.0 cm/s LV E' Lateral Velocity 6.4 cm/s Mitral E to LV E' Lateral Ratio 18.5 LV E' Septal Velocity 7.3 cm/s Mitral E to LV E' Septal Ratio 16.3 TR Peak Velocity 301.0 cm/s TR Peak Gradient 36.2 mmHg Right Atrial Pressure 10.0 mmHg Pulmonary Artery Systolic Pressu 46.2 mmHg Right Ventricular Systolic Press 46.2 mmHg PV Peak Velocity 136.0 cm/s PV Peak Gradient 7.4 mmHg FINDINGS LEFT VENTRICLE Normal left ventricular size. Moderate concentric left ventricular hypertrophy. The left ventricular systolic function is moderately reduced with an estimated ejection fraction in the range of 40-45%. RIGHT VENTRICLE Normal right ventricular size and systolic function. LEFT ATRIUM The left atrial size is normal. RIGHT ATRIUM The right atrial size is normal. ATRIAL SEPTUM Normal atrial septal thickness without atrial level shunting by limited color doppler interrogation. AORTA The aortic root and proximal ascending aorta are normal in size on limited imaging. MITRAL VALVE Mild mitral valve regurgitation. AORTIC VALVE Trileaflet aortic valve. Aortic valve sclerosis is present. TRICUSPID VALVE There is trace tricuspid valve regurgitation. The estimated pulmonary arterial pressure is 46 mmHg. PULMONARY VALVE Trivial pulmonary valve regurgitation. VESSELS The inferior vena cava is normal in size. PERICARDIUM No pericardial effusion. Bony Palm MD, FACC, [facility] [place] (Electronically Signed) Final Date:02 November 2018 14:46
--- NOTE | 2018-11-02 14:51 | P.PNPAL ---
Palliative care consulted for clarifications of goals of care, family support. Ms. 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 Patient being followed by [facility] and is on chronic steroid use. This morning, patient sustained a cardiac arrest with ROSC after ACLS, however, her clinical condition continued to deteriorate. A second CODE BLUE was called, present during 2nd code. Palliative care, Commercial Green Retrofit Architect Bc Palacio and Dr. Nassar present. was updated on patients critical condition. verbalized that patient has completed advance directives to include living will and designation of healthcare surrogate naming him as the surrogate decision-maker. further reports that patient has been verbal in the past regarding end of life decisions and has requested to let her go if there is nothing else to be done. verbalized that patient has suffered enough. requested to discontinue CPR attempts. Ongoing emotional support and active listening provided. verbalized appreciation for care provided to patient. Manda Wright, MSN, [employer]. Palliative Care Nurse Practitioner.
--- NOTE | 2018-11-03 14:29 | ECG ---
Date Performed: 11/02/2018 Time Performed: 12:49:16 PTAGE: 73 years EKG: Undetermined rhythm. Right axis deviation Right bundle branch block Lateral infarct - age u ndetermined Low QRS voltages in precordial leads Abnormal ECG Compared to PREVIOUS TRACING , the heart rate is slower and no clear P-waves are seen. This is possib ly an accelerated junctional rhythm. Right bundle branch block is new. Due to rhythm and complex rehman ges, clinical correlation is recommended. PREVIOUS TRACING 11/02/2018 08.49.58 DOCTOR: Feliciano Salazar Interpretating Date/Time 11/03/2018 14:28:44
--- NOTE | 2018-11-04 16:46 | P.DN ---
- Provider Primary care physician: Khanh Wallace MD Admitting clinician: Jv Euceda Attending physician on admission: Marlen Nassar Consults: 11/01/18 05:42 Consult to Orthopedic Surgery Routine Consulting Provider: Sarita Araiza Reason for Consultation: hip frx Notified:: Service Spoke with:: Franky Date Notified:: 11/01/18 Time Notified:: 05:50 Ordering Provider: MAEGAN 11/01/18 09:55 Consult to Nephrology Routine Consulting Provider: Reji Thomas V Does the patient have a Typewriter Mechanic who follows them?: No Preferred Nephrology Fitness Consultant:: Cnc Mill Operator Physician Reason for Consultation: MINIMAL CHANGE DISEASE H/O NEPHROTIC SYNDROME ANARCA CKD Notified:: Service Spoke with:: LOKESH Date Notified:: 11/01/18 Time Notified:: 10:00 Ordering Provider: JUWAN 11/01/18 11:12 Consult to Cardiology Routine Consulting Provider: Wing Lizzie Johnson Does the patient have a Plant Attendant Or Assistant Operator who follows them?: No Preferred Balancing Machine Set Up Worker:: Cnc Mill Operator Physician Reason for Consultation: FHCP new onset A Fib with hip fracture, cardiac clearance Notified:: Service Spoke with:: TAN Date Notified:: 11/01/18 Time Notified:: 11:37 Ordering Provider: ELBERT 11/02/18 09:04 Consult to Hematology Routine Consulting Provider: Alina Sevilla Reason for Consultation: Pancytopenia, chronically on steroids 2/2 minimal chnage disease Notified:: Office Spoke with:: JOHANNA CASTELLANOS Date Notified:: 11/02/18 Time Notified:: 10:53 Ordering Provider: KALANI 11/02/18 09:38 Consult to Infectious Diseases Routine Consulting Provider: Elaine Trujillo Reason for Consultation: Patient presented pancytopenic but lactic acidemia worsening. Cultures obtained, empiric antibiotics initiated. Patient does have a history of HSV Notified:: Service Spoke with:: IRASEMA Date Notified:: 11/02/18 Time Notified:: 10:22 Ordering Provider: KALANI 11/02/18 12:49 Consult to Palliative Care Stat Consulting Provider: Call Back For STAT consult, spoke directly to:: Manda Reason for Consultation: Coding Patient Ordering Provider: KALANI Pronouncing clinician: Marlen Young - Date and Time Date of admission: 11/01/18 05:34 - Summary Brief History: This is a 73-year-old female patient with a past medical history which includes minimal change disease dx in 2014 with nephrotic syndrome, temporary HD spring, hypertension, anasarca, COPD and OA. Patient presents to the ER brought in by EMS after she had a syncopal episode. Patient has recently received Ovett and is drowsy. Information gathered from prior charting and at bedside. She apparently had gotten up to go to the bathroom and she had syncopal episode. She does not remember the event. She denies any chest pains, trouble breathing, or other symptoms. EMS states that initially she did have some bradycardia. She is currently complaining of left hip pain. Hip X- Ray 11/01/18 On the single view the pelvis and concerned about the inferior femoral neck for slightly impacted fracture. HGB 6.8 there is no report of blood per rectum or black stools. Patient's does report patient appears more fatigued lately and patient has had a hard time walking for the past month. Patient denies chest pain, SOB, fevers, chills, N/V/D/C. Chest X-Ray 11/01/18 No obvious infiltrate or mass. No visible pneumothorax or displaced rib fracture Head CT 11/01/[address] Head non contrast. Hip X-Ray 11/01/18 On the single view the pelvis and concerned about the inferior femoral neck for slightly impacted fracture. There are 2 views are entirely normal Past Medical History COPD Tobacco use Osteoarthritis Genital herpes PFT on 06/05/15 with FEV1 82% Minimal change disease with nephrotic syndrome anasarca CKD stage 3 HTN Past Surgical History vaginal Hysterectomy with oophorectomy Cholecystectomy Abdominoplasty Breast reduction and implants cataract surgery Kidney Bx Family History Mother with a hx of HTN, diabetes mellitus, and breast cancer Father with a hx of emphysema Social History Hx of Tobacco use, 30+ years smokes 5-6 cigarettes per day. Rare social alcohol use. Denies illicit drug use Result Diagrams: 11/02/18 08:32 11/02/18 08:32 Significant Findings: Abnormal Lab Results 11/01/18 11/02/18 09:49 09:50 Heparin Dep Plt Ab OD 0.341 Hep-Induced Plt Ab Alda Negative MTS Gel Crossmatch See Detail Hospital Course: 73yF with history of minimal change disease and stage IV/V CKD with baseline Cr between 2.1 and 2.5 over last 12 months. She presented with syncope and severe acute left hip pain master dyer 11/[address] scan was found to have non- displaced hip fracture. She was also in new-onset afib. She was additionally severely anemic with hgb 6 on admission which responded to prbc transfusion and was 11 this morning. She remains very leukopenic which consultants consider likely chronic and secondary to her immunosuppressant regimen for her minimal change disease. She is followed by the [facility]. Cardiology consultation today recommended 2d echo and diltiazem drip for afib with RVR. Echo is still pending at this time. Tonight, she developed significant hypotension with sbp 70s. I was notified by the primary team and immediately evaluated the patient. She complains of significant fatigue and left hip pain. She denies chest pain, shortness of breath. denies n/v/c or abdominal pain. her at bedside endorses that she began with diarrhea tonight. she endorses a "hot feeling" and has ice packs for comfort, though she is afebrile. denies rigors/chills. denies cough, sputum production. She has gross anasarca which is chronic for her per her and her . Remainder of the ROS is negative. Troponins on admission were 0.1 and BNP 700, but no trend on these values. PMHx: minimal change disease, htn, prior dialysis for ~6 months in early 11/02: The patient was noted to be hypotensive and writhing in pain complaints of leg pain early this a.m.. Has been at baseline consent obtained for emergent placement of central line, with implementation of vasopressors to include norepinephrine and vasopressin. Patient's blood pressure improved somewhat however the patient became nonresponsive, with hypoxia and was emergently intubated. The possibility of intubation have been discussed with the patient's during central line placement. The patient was noted to be neutropenic upon review of labs, sepsis workup initiated, prophylactic antibiotics have been initiated. Hemeoncology and ID have been consulted. Lactic acid continues to rise. corticotrophin 80 units IM every 72 hours for minimal change disease however, unknown when last dose was given. Patient's flight control tower operator Dr. May at [facility], in process to obtain records authorization received from . Nephrology following. Abdomen abdominal ultrasound last evening was a limited study due to patient motion factor. CT of the abdomen and pelvis was obtained. Repeat abdominal ultrasound pending this a.m.. 1224: 1300-EKG rhythm asystole ACLS protocol instituted, see completed form. Family was notified. CPR ended 1311, request of . Patient pronounced 1311. Family/ and clergy at bedside.
--- NOTE | 2018-11-04 16:47 | P.DN ---
Pronouncement Note - Date and Time of Date of : 11/02/18 Time of : 13:11 - Contributing Factors (1) Chronic kidney disease (2) Lactic acid blood increased (3) Neutropenia
--- NOTE | 2018-11-04 16:56 | P.PNCC ---
Critical Care Event Note Code activated: Yes Narrative: This case had a high probability of a clinically significant, sudden, or life threatening deterioration of this patient's condition which required my full and direct attention, intervention and personal management. Date: Procedure: Cardiopulmonary resuscitation Indication: Cardiac arrest Details of procedure: Patient developed asystole cardiac arrest. Per ACLS protocol, patient received CPR, manual bag-valve ventilation via ETT, epinephrine and calcium chloride, sodium bicarbonate ,normal saline 1 L IV. After approximately 11 minutes resuscitation and at the request of patient's at bedside we were unable to restore spontaneous circulation. Patient was pronounced at 1311 hours. The family was notified by 1311 at bedside. Critical care time: less than 30 mins
== END 2018-11-02 13:11 | disposition expired ==
LOC: NEPC 03:42 → NEDA 05:34 → HCIS 08:22 → HIMC 11-02 01:00
PROVIDERS: ADMIT Hospitalist; ATTEND Hospitalist